=== PATIENT | female | born 1935 | race Caucasian/White ===

== ENCOUNTER 2021-12-10 09:07 | Inpatient (IN) | payer OTHER ==
[2021-12-10 09:39] LABS: Absolute Lymphocytes (CBC) 2.3 K/uL (0.7-4.9); Hematocrit 41.6 % (36.0-45.0); Lymphocytes % 30.2 % (15.3-44.8); MCV 92.1 fL (80-100); MPV 8.6 fL (7.6-11.3); RBC Red Blood Cell Count 4.52 M/uL (3.86-4.86)
[2021-12-10 09:50] LABS: SARS-CoV-2 Antigen Rapid Res Negative (Negative)
--- NOTE | 2021-12-10 09:52 | RAD REPORT ---
EXAM DESCRIPTION: Neva Single View12/10/2021 9:41 am CLINICAL HISTORY: Alteration consciousness COMPARISON: 2016 FINDINGS: Small bilateral pleural effusions suspected with mild bibasilar atelectasis. The upper lobes appear clear of acute infiltrate. The heart is normal size
--- NOTE | 2021-12-10 09:56 | EDPHYS ---
Physician Documentation [facility] Name: Paty Gil Age: 86 yrs Sex: Female : 1935 Arrival Date: 12/10/2021 Time: 09:09 Bed 6 Private MD: ED Physician John Melendrez HPI: 12/10 09:16 This 86 yrs old Female presents to ER via Unassigned with complaints of AMS. rn 09:16 The patient presents with agitation, confusion, disorientation. Onset: The rn symptoms/episode began/occurred yesterday. Possible causes: unknown. Current symptoms: In the emergency department the patient's symptoms are unchanged from the initial presentation. It is unknown whether or not the patient has had similar symptoms in the past. It is unknown whether or not the patient has recently seen a physician. Per EMS, family called 911 for AMS, not acting right per family, last seen normal or at her baseline last night around 8 PM. Pt slightly agitated for EMS, but easy to redirect, keeps repeating herself, moves all 4 extremities, no known trauma. . Historical: - Allergies: 09:26 No Known Allergies; jd3 - Home Meds: 09:26 None [Active]; jd3 - PMHx: 09:26 CHF; jd3 - PSHx: 09:26 None; jd3 - Immunization history:: Adult Immunizations up to date, Client reports having NOT received the Covid vaccine. Pneumococcal vaccine is not up to date, Flu vaccine is not up to date. - Social history:: Smoking status: Patient/guardian denies using tobacco, but has a distant history of tobacco abuse. - Unable to obtain history due to: altered mental status. ROS: 09:16 Unable to obtain ROS due to altered mental status. rn Exam: 09:16 Constitutional: Overweight female, unkempt appearance, toenails that haven't but taken rn care of for long time. Head/Face: Normocephalic, atraumatic. Eyes: Periorbital areas with no swelling, redness, or edema. ENT: dry MM Cardiovascular: Regular rate and rhythm. No pulse deficits. Respiratory: No increased work of breathing, no retractions or nasal flaring. Abdomen/GI: Soft, non-tender, with normal bowel sounds. No distension or tympany. No guarding or rebound. No evidence of tenderness throughout. Skin: Warm, dry MS/ Extremity: Pulses equal, no cyanosis. Neurovascular intact. Full, normal range of motion. Equal circumference. Neuro: Awake, alert, moves all 4 extremities, apepars confused, repeats words, does not answer appropriately, no focal neuro deficits appreciated. Withdraws all 4 extremities to pain. 09:45 ECG was reviewed by the Attending Physician. rn Vital Signs: 09:26 BP 177 / 64; Pulse 82; Resp 17 S; Temp 97.4; Pulse Ox 95% on R/A; Weight 81.65 kg (R); jd3 Height 5 ft. 6 in. (167.64 cm) (R); 11:46 BP 156 / 76 RA Supine (auto/reg); Pulse 81 LA; Resp 16 S; Pulse Ox 95% on R/A; kc6 12:38 BP 160 / 90; Pulse 82 RA; Resp 17 S; Pulse Ox 97% on R/A; kc6 13:35 BP 197 / 70; Pulse 75; Resp 21 S; Pulse Ox 94% on R/A; kc6 14:18 BP 142 / 111; Pulse 77; Resp 20 S; Pulse Ox 91% on R/A; kc6 09:26 Body Mass Index 29.05 (81.65 kg, 167.64 cm) jd3 NIH Stroke Scale Scores: 09:30 NIHSS Score: 6 kc6 11:14 NIHSS Score: 4 rn MDM: 09:11 Patient medically screened. rn 12/10 09:12 Order name: Basic Metabolic Panel; Complete Time: 15:14 rn 12/10 09:12 Order name: CBC with Diff; Complete Time: 09:53 rn 12/10 09:12 Order name: High Sensitivity Troponin; Complete Time: 15:14 rn 12/10 09:12 Order name: Protime (+inr); Complete Time: 11:36 rn 12/10 09:12 Order name: Ptt, Activated; Complete Time: 11:36 rn 12/10 09:12 Order name: Urine Drug Screen rn 12/10 09:12 Order name: Urine Microscopic Only rn 12/10 09:12 Order name: SARS RAPID; Complete Time: 09:53 rn 12/10 09:29 Order name: Urine Culture rn 12/10 09:49 Order name: Glucose, Ancillary Testing; Complete Time: 09:53 EDMS 12/10 13:31 Order name: CBC with Automated Diff EDMS 12/10 13:31 Order name: CBC with Automated Diff EDMS 12/10 13:31 Order name: Comprehensive Metabolic Panel EDMS 12/10 13:31 Order name: Comprehensive Metabolic Panel EDMS 12/10 13:31 Order name: Lipid Profile EDMS 12/10 13:31 Order name: Lipid Profile EDMS 12/10 13:31 Order name: Magnesium EDMS 12/10 13:31 Order name: Magnesium EDMS 12/10 13:31 Order name: Protime (+INR) EDMS 12/10 13:31 Order name: Protime (+INR) EDMS 12/10 13:31 Order name: Protime (+INR) EDMS 12/10 13:31 Order name: Protime (+INR) EDMS 12/10 13:31 Order name: Protime (+INR) EDMS 12/10 13:31 Order name: Protime (+INR) EDMS 12/10 13:31 Order name: PTT, Activated Partial Thromb EDMS 12/10 13:31 Order name: PTT, Activated Partial Thromb EDMS 12/10 13:31 Order name: PTT, Activated Partial Thromb EDMS 12/10 13:31 Order name: PTT, Activated Partial Thromb EDMS 12/10 13:31 Order name: PTT, Activated Partial Thromb EDMS 12/10 09:12 Order name: CT Stroke Brain w/o Contrast; Complete Time: 10:31 rn 12/10 09:12 Order name: Stroke CXR 1 View; Complete Time: 09:53 rn 12/10 09:12 Order name: EKG; Complete Time: 09:13 rn 12/10 09:12 Order name: Accucheck; Complete Time: 09:37 rn 12/10 09:12 Order name: Cardiac monitoring; Complete Time: 09:18 rn 12/10 09:12 Order name: EKG - Nurse/Tech; Complete Time: 09:33 rn 12/10 09:12 Order name: IV Saline Lock; Complete Time: :33 rn 12/10 09:12 Order name: Labs collected and sent; Complete Time: 09:33 rn 12/10 09:12 Order name: NPO; Complete Time: 09:18 rn 12/10 09:12 Order name: O2 Per Protocol; Complete Time: 09:18 rn 12/10 09:12 Order name: O2 Sat Monitoring; Complete Time: 09:19 rn 12/10 09:12 Order name: Stroke Swallow Screen; Complete Time: 13:38 rn 12/10 09:44 Order name: Labs - recollect needed: recollect the blood hemolyzed; Complete Time: 10:20eb 12/10 09:54 Order name: CT Head Angio rn 12/10 09:54 Order name: Neck Angio CT; Complete Time: 11:36 rn 12/10 09:58 Order name: Head angio; Complete Time: 11:36 EDAK 12/10 13:31 Order name: Physical Therapy Consult EDMS 12/10 13:31 Order name: Speech Therapy Consult EDAK 12/10 13:31 Order name: NPO; Complete Time: 14:02 EDAK 12/10 13:31 Order name: Echo with Doppler EDMS 12/10 13:31 Order name: EKG Electrocardiogram EDMS 12/10 13:31 Order name: PTT, Activated Partial Thromb EDMS 12/10 13:31 Order name: Stroke Protocol EDAK 12/10 13:31 Order name: Stroke Protocol EDAK 12/10 13:31 Order name: Chest Pa And Lat (2 Views) EDAK EC:45 Rate is 67 beats/min. Rhythm is regular. QRS Odd is Normal. UT interval is normal. QRS rn interval is normal. QT interval is normal. No Q waves. T waves are Normal. No ST changes noted. Clinical impression: NSR w/ Non-specific ST/T Changes. Interpreted by me. Reviewed by me. Administered Medications: 11:12 Not Given (Other Intervention Used): Aspirin 325 mg PO once jd3 11:17 Drug: foLIC Acid 1 mg Route: IVPB; Site: left antecubital; kc6 12:38 Follow up: Response: No adverse reaction; IV Status: Completed infusion; IV Intake: [id number] 12:29 Drug: Aspirin Suppository 300 mg Route: UT; kc6 13:29 Follow up: Response: No adverse reaction kc6 Point of Care Testing: Blood Glucose: 09:49 Blood Glucose: 85 mg/dL; kc6 Ranges: Critical Glucose Levels:Adult <50 mg/dl or >400 mg/dl <40 mg/dl or >180 mg/dl Disposition Summary: 12/10/21 09:55 Hospitalization Ordered Hospitalization Status: Inpatient Admission rn Provider: Briana Jean rn Location: Telemetry/MedSurg (Inpatient) rn Condition: Stable rn Problem: new rn Symptoms: are unchanged rn Bed/Room Type: Standard rn Room Assignment: 401(12/10/21 14:12) dw Diagnosis - Cerebral infarction, unspecified rn - Altered mental status, unspecified rn - Unspecified combined systolic (congestive) and diastolic (congestive) heart failure rn Forms: - Medication Reconciliation Form rn - SBAR form rn NIH Stroke Scale - NIH Stroke Score Date: 12/10/2021 Time: 09:30 Total Score = 6 1a. Level of Consciousness (LOC) - 0(Alert) 1b. Level of Consciousness (LOC) (Month \T\ Age) - 2(Neither) 1c. LOC Commands (Open \T\ Closes Eyes/Credit Control Manager) - 2(Neither) 2. Best Gaze (Lateral Gaze Paresis) - 0(Normal) 3. Visual Field Loss - 0(No visual loss) 4. Facial Palsy - 0(Normal) 5a. Left Arm: Motor (10-second hold) - 0(No drift) 5b. Right Arm: Motor (10-second hold) - 0(No drift) 6a. Left Leg: Motor (5-second hold - always test supine) - 0(No drift) 6b. Right Leg: Motor (5-second hold - always test supine) - 0(No drift) 7. Limb Ataxia (finger/nose \T\ heel/sahni - test with eyes open) - 0(Absent) 8. Sensory Loss (pinprick arms/legs/face) - 0(Normal) 9. Best Language: Aphasia (description/naming/reading) - 2(Severe aphasia) 10. Dysarthria (speech clarity - read or repeat words) - 0(Normal) 11. Extinction and Inattention (visual/tactile/auditory/spatial/personal) - 0(No abnormality) Initials: kc6 NIH Stroke Scale - NIH Stroke Score Date: 12/10/2021 Time: 11:14 Total Score = 4 1a. Level of Consciousness (LOC) - 0(Alert) 1b. Level of Consciousness (LOC) (Month \T\ Age) - 2(Neither) 1c. LOC Commands (Open \T\ Closes Eyes/Credit Control Manager) - 2(Neither) 2. Best Gaze (Lateral Gaze Paresis) - 0(Normal) 3. Visual Field Loss - 0(No visual loss) 4. Facial Palsy - 0(Normal) 5a. Left Arm: Motor (10-second hold) - 0(No drift) 5b. Right Arm: Motor (10-second hold) - 0(No drift) 6a. Left Leg: Motor (5-second hold - always test supine) - 0(No drift) 6b. Right Leg: Motor (5-second hold - always test supine) - 0(No drift) 7. Limb Ataxia (finger/nose \T\ heel/sahni - test with eyes open) - 0(Absent) 8. Sensory Loss (pinprick arms/legs/face) - 0(Normal) 9. Best Language: Aphasia (description/naming/reading) - 0(No aphasia) 10. Dysarthria (speech clarity - read or repeat words) - 0(Normal) 11. Extinction and Inattention (visual/tactile/auditory/spatial/personal) - 0(No abnormality) Initials: rn Signatures: Dispatcher [employer] Yee Pierce RN RN dw Nieto, Roman, MD MD rn Davies, Jonathon, RN RN jd3 Veronica Castro Kaitlyn RN RN kc6 Corrections: (The following items were deleted from the chart) 13:02 09:30 BLOOD CULTURE*+[id number].BRZ ordered. EDAK EDAK 14:10 09:55 rn jorge 14:12 14:10 410 jorge
--- NOTE | 2021-12-10 09:56 | ER ---
Nurse's Notes [facility] Name: Paty Gil Age: 86 yrs Sex: Female : 1935 Arrival Date: 12/10/2021 Time: 09:09 Bed 6 Private MD: Diagnosis: Cerebral infarction, unspecified;Altered mental status, unspecified;Unspecified combined systolic (congestive) and diastolic (congestive) heart failure Presentation: 12/10 09:19 Chief complaint: EMS states: "family called for a pt with acute AMS that started this jd3 morning. last known well was when she went to bed at 2000 last night. she is normally able to talk and have a normal conversation with no history of AMS. today she is unable to respond appropriately and keeps repeating her words. she is unable to answer orientation questions at this time.". Coronavirus screen: At this time, the client does not indicate any symptoms associated with coronavirus-19. Ebola Screen: No symptoms or risks identified at this time. An acute neurological deficit is present. The charge nurse has been notified. The patient has been moved to a treatment area. The patients blood glucose was checked before arriving to the hospital and was found to be normal. Initial Sepsis Screen: Does the patient meet any 2 criteria? Altered Mental Status. No. Patient's initial sepsis screen is negative. Does the patient have a suspected source of infection? No. Patient's initial sepsis screen is negative. Risk Assessment: Do you want to hurt yourself or someone else? Unable to obtain. Onset of symptoms was December 10, 2021. 09:19 Method Of Arrival: EMS: [facility] jd3 09:19 Acuity: LEEN 2 jd3 Triage Assessment: 09:26 The onset of the patients symptoms was December 09, 2021 at 20:00. General: Appears jd3 comfortable, Behavior is calm. Pain: Unable to use pain scale. Patient is disoriented. FLACC scale score is 0 out of 10. Neuro: Wise Agitation-Sedation Scale (RASS): 0 - Alert and Calm Level of Consciousness is awake, alert, confused, Oriented to none Reports pt unable to answer orientation questions. Stroke Activation: Symptom onset > 6 hours Physician: Stroke Attending; Name: ; Notified At: ; Arrived At: Physician: Chief Stroke Resident; Name: ; Notified At: ; Arrived At: Physician: Stroke Resident; Name: ; Notified At: ; Arrived At: Physician: ED Attending; Name: Parvin BRADEN; Notified At: 09:23; Arrived At: 09:23 Physician: ED Resident; Name: ; Notified At: ; Arrived At: Historical: - Allergies: 09:26 No Known Allergies; jd3 - Home Meds: :26 None [Active]; jd3 - PMHx: :26 CHF; jd3 - PSHx: 09:26 None; jd3 - Immunization history:: Adult Immunizations up to date, Client reports having NOT received the Covid vaccine. Pneumococcal vaccine is not up to date, Flu vaccine is not up to date. - Social history:: Smoking status: Patient/guardian denies using tobacco, but has a distant history of tobacco abuse. - Unable to obtain history due to: altered mental status. Screenin:38 Abuse screen: Denies threats or abuse. Denies injuries from another. Nutritional kc6 screening: On NPO diet, Difficulty chewing/swallowing? Yes. Tuberculosis screening: No symptoms or risk factors identified. Fall Risk No fall in past 12 months (0 pts). Secondary diagnosis (15 points) CVA, IV access (20 points). Ambulatory Aid- None/Bed Rest/Nurse Assist (0 pts). Gait- Normal/Bed Rest/Wheelchair (0 pts) Mental Status- Overestimates/Forgets Limitations (15 pts.). Total German Fall Scale indicates High Risk Score (45 or more points). Fall prevention measures have been instituted. Side Rails Up X 2 Placed Close to Nursing Station Frequent Obs/Assessments Occuring Family Present and informed to notify staff if the need to leave the bedside As available patient and family educated on Fall Prevention Program and Strategies. Assessment: 09:30 General: Appears in no apparent distress. uncomfortable, unkempt, Behavior is agitated, kc6 inappropriate for age, restless, uncooperative. Pain: Unable to use pain scale. Patient is disoriented. Does not appear to understand pain scale. Cardiovascular: Heart tones S1 S2 present Capillary refill < 3 seconds. Respiratory: Airway is patent Respiratory effort is even, unlabored, Respiratory pattern is regular, symmetrical. GI: No signs and/or symptoms were reported involving the gastrointestinal system. : No signs and/or symptoms were reported regarding the genitourinary system. EENT: No signs and/or symptoms were reported regarding the EENT system. Derm: No signs and/or symptoms reported regarding the dermatologic system. Musculoskeletal:. Musculoskeletal: Circulation, motion, and sensation intact. Capillary refill < 3 seconds, Range of motion: intact in all extremities, Swelling absent. 09:30 Neuro: Wise Agitation-Sedation Scale (RASS): +1 Restless Level of Consciousness is kc6 awake, alert, confused, Oriented to none Moves all extremities. Full function Speech with expressive aphasia noted, Facial symmetry appears normal, Pupils are PERRLA, Intact Babinski. 09:30 VAN Scoring: Arm Drift: Patients demonstrates NO arm weakness. Patient is VAN Negative. kc6 Patient has been NPO before screening. The patient is alert, and able to follow commands. The patient does not exhibit slurred or garbled speech. The patient is exhibiting difficulty speaking. Provider notified of the indication for Speech Therapy consult. The patient is exhibiting difficulty understanding words. The provider has been notified of the indication for a speech consult. The patient is able to swallow own secretions with no drooling or need for suction. not given not given. The patient failed the bedside swallow screening. The patient will be kept NPO until cleared by Speech Therapy or Physician. Provider notified of bedside swallow screening results: John Melendrez MD. TNKase (Tenecteplase) Screening: Contraindications: Patient reports onset of signs and symptoms of stroke greater than 6 hours ago: Yes. 09:30 Reassessment: patient with AMS, unable to follow verbal commands. patient unable to kc6 follow commands regarding NIH. unable to properly assess 1c, 7, 11. 10:30 Reassessment: Patient appears in no apparent distress at this time. No changes from kc6 previously documented assessment. Patient and/or family updated on plan of care and expected duration. Pain level reassessed. A\\T\\O x0. 11:30 Reassessment: Patient appears in no apparent distress at this time. No changes from kc6 previously documented assessment. Patient and/or family updated on plan of care and expected duration. Pain level reassessed. A\\T\\O x0. 12:29 Reassessment: Patient appears in no apparent distress at this time. No changes from kc6 previously documented assessment. Patient and/or family updated on plan of care and expected duration. Pain level reassessed. A\\T\\O x0. 13:13 Reassessment: Patient appears in no apparent distress at this time. No changes from kc6 previously documented assessment. Patient and/or family updated on plan of care and expected duration. Pain level reassessed. Dr. Jean at bedside speaking with family. clients eyes closed, respirations even and unlabored. easily aroused. A\\T\\O x0. 14:18 Reassessment: Patient appears in no apparent distress at this time. No changes from kc6 previously documented assessment. Patient and/or family updated on plan of care and expected duration. Pain level reassessed. 14:26 Reassessment: attempted to call report to 4th floor. Receiving nurse at lunch. kc6 14:42 Reassessment: attempted to call report to the 4th floor again. KACI Temple stated receiving 6 nurse is in a patients room. Vital Signs: 09:26 BP 177 / 64; Pulse 82; Resp 17 S; Temp 97.4; Pulse Ox 95% on R/A; Weight 81.65 kg (R); jd3 Height 5 ft. 6 in. (167.64 cm) (R); 11:46 BP 156 / 76 RA Supine (auto/reg); Pulse 81 LA; Resp 16 S; Pulse Ox 95% on R/A; kc6 12:38 BP 160 / 90; Pulse 82 RA; Resp 17 S; Pulse Ox 97% on R/A; kc6 13:35 BP 197 / 70; Pulse 75; Resp 21 S; Pulse Ox 94% on R/A; kc6 14:18 BP 142 / 111; Pulse 77; Resp 20 S; Pulse Ox 91% on R/A; kc6 09:26 Body Mass Index 29.05 (81.65 kg, 167.64 cm) jd3 NIH Stroke Scale Scores: 09:30 NIHSS Score: 6 kc6 11:14 NIHSS Score: 4 consumer insights intern Course: 09:09 Patient arrived in ED. eb 09:11 John Melendrez MD is Attending Physician. rn 09:18 Howard Michael RN is Primary Nurse. jd3 09:26 Triage completed. jd3 09:26 Arm band placed on. jd3 09:33 SARS RAPID Sent. kc6 09:33 Basic Metabolic Panel Sent. kc6 09:33 CBC with Diff Sent. kc6 09:33 High Sensitivity Troponin Sent. kc6 09:33 Protime (+inr) Sent. kc6 09:33 Ptt, Activated Sent. kc6 09:43 Stroke CXR 1 View In Process Unspecified. EDMS 09:49 CT Stroke Brain w/o Contrast In Process Unspecified. EDMS 09:55 Briana Jean MD is Hospitalizing Provider. rn 10:59 Head angio In Process Unspecified. EDMS 11:[address] In Process Unspecified. EDMS 11:40 Patient has correct armband on for positive identification. Bed in low position. Call kc6 light in reach. Side rails up X2. Adult w/ patient. 13:01 Warm blanket given. Cleaned of incontinence. brief changed, Pure Wick applied. kc6 14:15 No provider procedures requiring assistance completed. Maintain EMS IV. Dressing kc6 intact. Good blood return noted. Site clean \\T\\ dry. Gauge \\T\\ site: 18 G Left AC. Patient admitted, IV remains in place. Administered Medications: 11:12 Not Given (Other Intervention Used): Aspirin 325 mg PO once jd3 11:17 Drug: foLIC Acid 1 mg Route: IVPB; Site: left antecubital; kc6 12:38 Follow up: Response: No adverse reaction; IV Status: Completed infusion; IV Intake: [id number] 12:29 Drug: Aspirin Suppository 300 mg Route: TX; kc6 13:29 Follow up: Response: No adverse reaction kc6 Medication: 14:17 VIS not applicable for this client. kc6 Point of Care Testing: Blood Glucose: 09:49 Blood Glucose: 85 mg/dL; kc6 Ranges: Intake: 12:38 IV: 10ml; Total: 10ml. kc6 Outcome: 09:55 Decision to Hospitalize by Provider. rn 14:15 Admitted to Med/surg accompanied by tech, family with patient, via stretcher, room 401, kc with chart, Report called to KACI Sanchez 14:15 Condition: stable 14:15 Discharge instructions given to family, Instructed on the need for admit. 15:19 Patient left the ED. kc6 NIH Stroke Scale - NIH Stroke Score Date: 12/10/2021 Time: 09:30 Total Score = 6 1a. Level of Consciousness (LOC) - 0(Alert) 1b. Level of Consciousness (LOC) (Month \\T\\ Age) - 2(Neither) 1c. LOC Commands (Open \\T\\ Closes Eyes/Maintenance And Custodian Supervisor) - 2(Neither) 2. Best Gaze (Lateral Gaze Paresis) - 0(Normal) 3. Visual Field Loss - 0(No visual loss) 4. Facial Palsy - 0(Normal) 5a. Left Arm: Motor (10-second hold) - 0(No drift) 5b. Right Arm: Motor (10-second hold) - 0(No drift) 6a. Left Leg: Motor (5-second hold - always test supine) - 0(No drift) 6b. Right Leg: Motor (5-second hold - always test supine) - 0(No drift) 7. Limb Ataxia (finger/nose \\T\\ heel/sahni - test with eyes open) - 0(Absent) 8. Sensory Loss (pinprick arms/legs/face) - 0(Normal) 9. Best Language: Aphasia (description/naming/reading) - 2(Severe aphasia) 10. Dysarthria (speech clarity - read or repeat words) - 0(Normal) 11. Extinction and Inattention (visual/tactile/auditory/spatial/personal) - 0(No abnormality) Initials: kc6 NIH Stroke Scale - NIH Stroke Score Date: 12/10/2021 Time: 11:14 Total Score = 4 1a. Level of Consciousness (LOC) - 0(Alert) 1b. Level of Consciousness (LOC) (Month \\T\\ Age) - 2(Neither) 1c. LOC Commands (Open \\T\\ Closes Eyes/Maintenance And Custodian Supervisor) - 2(Neither) 2. Best Gaze (Lateral Gaze Paresis) - 0(Normal) 3. Visual Field Loss - 0(No visual loss) 4. Facial Palsy - 0(Normal) 5a. Left Arm: Motor (10-second hold) - 0(No drift) 5b. Right Arm: Motor (10-second hold) - 0(No drift) 6a. Left Leg: Motor (5-second hold - always test supine) - 0(No drift) 6b. Right Leg: Motor (5-second hold - always test supine) - 0(No drift) 7. Limb Ataxia (finger/nose \\T\\ heel/sahni - test with eyes open) - 0(Absent) 8. Sensory Loss (pinprick arms/legs/face) - 0(Normal) 9. Best Language: Aphasia (description/naming/reading) - 0(No aphasia) 10. Dysarthria (speech clarity - read or repeat words) - 0(Normal) 11. Extinction and Inattention (visual/tactile/auditory/spatial/personal) - 0(No abnormality) Initials: rn Signatures: Dispatcher [employer] EDJohn Ortega MD MD rn Davies, Jonathon, RN RN jd3 Botello, Elizabeth eb Campbell, Kaitlyn, RN RN kc6 Corrections: (The following items were deleted from the chart) 11:36 11:31 Reassessment: patient with AMS, unable to follow verbal commands. patient kc6 unable to follow commands regarding NIH. unable to properly assess 1c, 7, 11. kc6 12:39 12:17 Response: No adverse reaction; IV Intake: 10ml kc6 kc6 15:18 14:15 Admitted to Med/surg accompanied by tech, family with patient, via kc6 stretcher, room 401, with chart, kc6
--- NOTE | 2021-12-10 09:57 | RAD REPORT ---
EXAM DESCRIPTION: CT - Ct Stroke Brain Wo Cont - 12/10/2021 9:48 am CLINICAL HISTORY: Confusion/alteration of awareness COMPARISON: none TECHNIQUE: Computed axial tomography of the head was obtained. All CT scans are performed using dose optimization technique as appropriate and may include automated exposure control or mA/KV adjustment according to patient size. FINDINGS: An intracranial bleed is not seen . The ventricles are normal in caliber. No extra-axial fluid collection is noted. 3.5 centimeter low-density area within the right frontal lobe has the appearance an infarct. 1 millim eter shift of the midline structures to the left Moderate low-density within periventricular, subcortical white matter likely ischemic changes seconda ry to small vessel disease. Fluid within the sinuses/ mastoids is not seen. IMPRESSION: Acute right frontal lobe infarction Nik of the emergency room was notified at 9:51 a.m. December 10, 2021
[2021-12-10] MEDS ORDERED: FOLIC ACID 5 MG/ML VIAL ONE (11:09)
--- NOTE | 2021-12-10 11:27 | RAD REPORT ---
EXAM DESCRIPTION: CTHead angio12/10/2021 10:58 am CLINICAL HISTORY: Acute CVA COMPARISON: None TECHNIQUE: CT angiogram of the head was obtained. 3D MIPS reconstruction performed. All CT scans are performed using dose optimization technique as appropriate and may include automated exposure control or mA/KV adjustment according to patient size. FINDINGS: Mild plaque basilar artery. Mild to moderate calcified plaque distal right and left internal carotid arteries. A1 segment right anterior cerebral artery is hypoplastic. Remainder of the anterior cerebral, middle cerebral and posterior cerebral arteries unremarkable No aneurysm No high-grade stenosis IMPRESSION: No acute abnormality is displayed
--- NOTE | 2021-12-10 11:27 | RAD REPORT ---
EXAM DESCRIPTION: [place] Angio12/10/2021 10:59 am CLINICAL HISTORY: Acute CVA COMPARISON: None TECHNIQUE: 50 cc Isovue 370 was administered intravenously. 3D MIP reconstruction performed All CT scans are performed using dose optimization technique as appropriate and may include automated exposure control or mA/KV adjustment according to patient size. FINDINGS: Mild calcified plaque right common carotid and right internal carotid artery Moderate calcified plaque left carotid bulb. Mild calcified plaque left common carotid artery Minimal calcified plaque distal right vertebral artery. Moderate calcified plaque distal left vertebral artery IMPRESSION: Moderate calcified plaque left carotid bulb results in approximately 60% stenosis Moderate calcified plaque distal left vertebral artery results in approximately 50% stenosis NASCET criteria used. Mild 0-49% stenosis Moderate 50-69% stenosis Severe 70-99% stenosis
[2021-12-10 11:35] LABS: Protime INR 1.05
[2021-12-10 11:47] LABS: Potassium 3.9 mmol/L (3.5-5.1); Troponin High Sensitivity 16.4 pg/mL (<58.9)
[2021-12-10] MEDS ORDERED: ASPIRIN 300 MG/SUPP PR ONE (12:00)
[2021-12-10] MEDS ORDERED: ONDANSETRON 4 MG/2 ML VIAL IV PRN (13:26)
[2021-12-10] MEDS ORDERED: ACETAMINOPHEN 500 MG TAB PO PRN (13:26)
[2021-12-10 13:48] VITALS: BMI 29.0
[2021-12-10] MEDS: NA CHLORIDE 0.9% 1,000 ML IV SCH (16:08)
[2021-12-10] MEDS ORDERED: VALPROATE SODIUM INJ 250 MG in NA CHLORIDE 0.9% 100 ML IV ONE (16:41)
--- NOTE | 2021-12-10 16:52 | EKG ---
Test Date: 2021-12-10 Test Time: 09:31:37 Card Player: JO MEASUREMENT RESULTS: Intervals: Rate: 67 NE: 180 QRSD: 90 QT: 428 QTc: 452 [place]: P: 77 NE: 180 QRS: 58 T: 124 INTERPRETIVE STATEMENTS: Normal sinus rhythm Nonspecific ST and T wave abnormality Abnormal ECG Compared to ECG 12/09/2015 07:22:41 ST (T wave) deviation now present Ventricular premature complex(es) no longer present T-wave abnormality no longer present Possible ischemia no longer present Prolonged QT interval no longer present Electronically Signed On 12-10-21 16:51:42 CDT by Manuelito Anderson
[2021-12-10] MEDS ORDERED: NA CHLORIDE 0.9% 100 ML ONE (17:13)
[2021-12-10] MEDS: METOPROLOL TARTRATE 5 MG/5 ML INJ IV SCH (17:42)
[2021-12-10 18:36] LABS: Barbiturates NEGATIVE (NEGATIVE); Benzodiazepines NEGATIVE (NEGATIVE); Cocaine NEGATIVE (NEGATIVE); METHAMPHETAM NEGATIVE (NEGATIVE); Methadone NEGATIVE (NEGATIVE); Opiates NEGATIVE (NEGATIVE); Phencyclidine NEGATIVE (NEGATIVE); THC Cannibis NEGATIVE (NEGATIVE)
[2021-12-10 18:51] LABS: Urine RBC <5 /HPF (None Seen)
[2021-12-10] MEDS: ATORVASTATIN 80 MG TAB PO SCH (20:09)
[2021-12-10] MEDS ORDERED: HALOPERIDOL LACT 5 MG/ML INJ IV PRN ×2 (21:09→21:21)
--- NOTE | 2021-12-10 21:21 | P.HP ---
Certification for Inpatient Patient admitted to: Inpatient With expected LOS: >2 Midnights Patient will require the following post-hospital care: None Practitioner: I am a practitioner with admitting privileges, knowledge of patient current condition, hospital course, and medical plan of care. Services: Services provided to patient in accordance with Admission requirements found in Title 42 Section 412.3 of the Code of Federal Regulations Patient History Date of Service: 12/10/21 Reason for admission: Right frontal lobe CVA-acute History of Present Illness: patient is a an 86-year-old female who woke up this morning and she was confused. Patient was repeating the same word over and over again. She was not making any sense whatsoever. The family is not really sure when her mentation became altered. They know she went to sleep and she was fine. When she woke up her mentation was as mentioned above. Patient lives with her family and she has assistance with her activities of daily living although she does most of the things on her own. At this time she will be admitted for acute CVA. Imaging studies in the emergency room revealed right frontal lobe infarct that was an acute infarct. Allergies No Known Allergies Allergy (Verified 01/28/16 16:31) Home Medications: NK [No Home Meds] 12/10/21 - Past Medical/Surgical History Has patient received pneumonia vaccine in the past: No Diabetic: No -: CHF -: pt has one living child - Family History Sister Medical History: Heart disease - Social History Smoking Status: Former smoker Alcohol use: No CD- Drugs: No Place of Residence: Home Review of Systems 10-point ROS is otherwise unremarkable Physical Examination - Vital Signs Temperature: 97.6 F Blood Pressure: 188/67 Pulse: 76 Respirations: 16 Pulse Ox (%): 93 - Physical Exam General: Alert, In no apparent distress, Confused HEENT: Atraumatic, PERRLA, Mucous membr. moist/pink, EOMI, Sclerae nonicteric Neck: Supple, 2+ carotid pulse no bruit, No LAD, Without JVD or thyroid abnormality Respiratory: Clear to auscultation bilaterally, Normal air movement Cardiovascular: Regular rate/rhythm, Normal S1 S2 Gastrointestinal: Normal bowel sounds, No tenderness Musculoskeletal: No tenderness Integumentary: No rashes Neurological: Normal tone, Cranial nerves 3-12 intact, Normal affect, Abnormal gait, Abnormal speech, Abnormal strength Lymphatics: No axilla or inguinal lymphadenopathy - Studies Laboratory Data (last 24 hrs) 12/10/21 11:22: PT 11.5, INR 1.05, APTT 29.7 12/10/21 11:22: Sodium 135 L, Potassium 3.9, BUN 15, Creatinine 1.27, Glucose 100 12/10/21 09:29: WBC 7.70, Hgb 13.8, Hct 41.6, Plt Count 264 Assessment & Plan - Problems (Diagnosis) (1) Acute CVA (cerebrovascular accident) Current Visit: Yes Status: Acute (2) CHF (congestive heart failure) Current Visit: Yes Status: Acute (3) CKD (chronic kidney disease) stage 3, GFR 30-59 ml/min Onset Date: 12/09/15 Current Visit: No Status: Acute (4) Chronic obstructive pulmonary disease Onset Date: 01/31/16 Current Visit: No Status: Chronic Qualifiers: - Plan 1. MRI of the brain 2. Echocardiogram and carotid Doppler 3. Anti-platelet therapy and statin therapy 4. Neurology consultation 5. Physical therapy/occupational therapy/speech therapy evaluation 6. Modified barium swallow study 7. DVT prophylaxis Discharge Plan: Other (rehab) Plan to discharge in: Greater than 2 days - Advance Directives Does patient have a Living Will: No Does patient have a Durable POA for Healthcare: No - Code Status/Comfort Care Code Status Assessed: Yes Code Status: Full Code Critical Care: No Time Spent Managing PTS Care (In Minutes): 45
[2021-12-11] MEDS ORDERED: HYDRALAZINE HCL 20 MG/ML VIAL IV ONE
[2021-12-11] MEDS: METOPROLOL TARTRATE 5 MG/5 ML INJ IV SCH ×4 (00:25→17:00)
[2021-12-11 06:10] LABS: Absolute Lymphocytes (CBC) 1.5 K/uL (0.7-4.9); Hematocrit 43.3 % (36.0-45.0); Lymphocytes % 17.1 % (15.3-44.8); MCV 90.9 fL (80-100); MPV 8.6 fL (7.6-11.3); RBC Red Blood Cell Count 4.76 M/uL (3.86-4.86)
[2021-12-11 06:17] LABS: Protime INR 1.06
[2021-12-11 06:33] LABS: Albumin 3.3 g/dL (3.4-5.0); Bilirubin Total 0.7 mg/dL (0.2-1.0); Magnesium 2.4 mg/dL (1.8-2.4); Potassium 4.1 mmol/L (3.5-5.1); Protein, Total 7.9 g/dL (6.4-8.2)
[2021-12-11] MEDS: ENOXAPARIN 40 MG/0.4 ML SQ SCH (08:33)
[2021-12-11] MEDS: ASPIRIN EC 81 MG TAB PO SCH (09:00)
[2021-12-11] MEDS ORDERED: PNEUMOCOCCAL VACCINE 0.5 ML IMVAC ONE (09:00)
[2021-12-11] MEDS ORDERED: INFLUENZA VACCINE (for 6+ mo) 0.5 ML DOSE IMVAC ONE (09:00)
[2021-12-11] MEDS: CLOPIDOGREL 75 MG TABLET PO SCH (09:00)
[2021-12-11] MEDS: NA CHLORIDE 0.9% 1,000 ML IV SCH (14:09)
[2021-12-11] MEDS: ATORVASTATIN 80 MG TAB PO SCH (21:00)
[2021-12-12] MEDS: METOPROLOL TARTRATE 5 MG/5 ML INJ IV SCH ×5 (00:19→23:00)
[2021-12-12 04:25] LABS: Protime INR 1.1
[2021-12-12] MEDS: ASPIRIN EC 81 MG TAB PO SCH ×2 (09:00→10:05)
[2021-12-12] MEDS: FOLIC ACID 1 MG TABLET PO SCH ×2 (09:00→10:05)
[2021-12-12] MEDS: CLOPIDOGREL 75 MG TABLET PO SCH ×2 (09:00→10:05)
--- NOTE | 2021-12-12 09:10 | P.PN ---
Date of Service: 12/11/21 Subjective Patient clinically doing well. Symptoms are improving. Patient was able to eat pudding without any difficulty. Will place patient on pureed diet. Feed with assistance. Patient is interacting in answering questions more appropriately. She is still jumbled her words up. But she is making much more sense than she was yesterday. Physical Examination - Vital Signs Reviewed - Physical Exam General: Alert, In no apparent distress, Aphasic Respiratory: Clear to auscultation bilaterally, Normal air movement Cardiovascular: Regular rate/rhythm, Normal S1 S2 Gastrointestinal: Normal bowel sounds, No tenderness Neurological: patient is aphasic. Move all extremities. she is following some of my commands. Neurologically she is better than yesterday. Assessment & Plan - Problems (Diagnosis) (1) Acute CVA (cerebrovascular accident) Current Visit: Yes Status: Acute (2) CHF (congestive heart failure) Current Visit: Yes Status: Acute (3) CKD (chronic kidney disease) stage 3, GFR 30-59 ml/min Onset Date: 12/09/15 Current Visit: No Status: Acute (4) Chronic obstructive pulmonary disease Onset Date: 01/31/16 Current Visit: No Status: Chronic Qualifiers: - Plan Continue with plan of care as mentioned below: 1. MRI of the brain 2. Echocardiogram and carotid Doppler 3. Anti-platelet therapy and statin therapy 4. Neurology consultation 5. Physical therapy evaluation 6. Patient tolerating pudding. Uncertain if will get speech therapy. Do not need to do swallow study at this time. 7. DVT prophylaxis
--- NOTE | 2021-12-12 09:39 | RAD REPORT ---
EXAM DESCRIPTION: Headache drowsiness - Brain W/Wo Cont - 12/12/2021 9:25 am CLINICAL HISTORY: CVA Headache, drowsiness, CVA symptomology COMPARISON: MRA Head Wo Cont dated 12/12/2021; Ct Stroke Brain Wo Cont dated 12/10/2021 TECHNIQUE: Multi-sequence, multiplanar MR imaging of the brain was performed with contrast. FINDINGS: There is a large area of restricted diffusion measuring 6 centimeters with mild post-contr ast enhancement noted left parietal region compatible with acute CVA. There is a large area of restricted diffusion measuring 4 cm right frontal lobe with postcontrast enh ancement also likely acute CVA. Smaller subcentimeter infarcts are also present left frontal region as well as left occipital lobe. There is no hemorrhage evident. No midline shift seen. No additional areas of pathologic enhancement. IMPRESSION: Large bilateral acute CVA noted, larger on the left. Additional smaller acute infarcts p resent left frontal and left occipital region. No midline shift is seen. No hemorrhagic component evident. Given the bilateral nature of these infarcts, consider embolic source.
--- NOTE | 2021-12-12 09:44 | RAD REPORT ---
EXAM DESCRIPTION: MRI - MRA Head Wo Cont - 12/12/2021 9:25 am CLINICAL HISTORY: CVA CVA COMPARISON: Head angio dated 12/10/2021 FINDINGS: 3D noncontrast [id number] MR angiography of the [place] of [place] was performed. There is diminished flow seen in the right M1 and M2 branches without occlusion. Right carotid siphon shows diminished flow as well likely related to atherosclerosis. Mild decrease right anterior cerebr al artery flow seen. No aneurysm, large vessel occlusion or vascular anomaly. Antegrade flow is seen in the vertebral arteries, right-sided dominant. IMPRESSION: Atherosclerotic vascular disease suspected involving right intracranial carotid artery a s well as right M1 and M2 branches with diminished flow. No large vessel occlusion evident.
[2021-12-12] MEDS: NA CHLORIDE 0.9% 1,000 ML IV SCH (09:56)
[2021-12-12] MEDS: ENOXAPARIN 40 MG/0.4 ML SQ SCH (09:56)
--- NOTE | 2021-12-12 10:04 | RAD REPORT ---
EXAM DESCRIPTION: MRI - MRA Neck W/Wo Cont - 12/12/2021 9:25 am CLINICAL HISTORY: CVA Headache, drowsiness COMPARISON: No comparisons FINDINGS: Contrast enhance 2D [id number] MR angiography of the neck vessels was performed. Left aortic arch is identified. There is a moderate stenosis present at the origin of the left subclavian artery. Focal stenosis also seen origin of the right common carotid artery. Both common carotid arteries are patent. There is a moderate smooth narrowing of the proximal right internal carotid artery and a mild focal n arrowing of the proximal left internal carotid artery. Maximal stenosis on the right is estimated at 60-70% based on NASCET criteria. Both vertebrobasilar systems are irregular with focal stenosis of the distal left vertebral artery is seen proximal to the basilar artery confluence. IMPRESSION: Multiple areas of atherosclerotic stenosis are seen as detailed above.
--- NOTE | 2021-12-12 14:23 | P.PN ---
Subjective Date of Service: 12/12/21 Chief Complaint: Right frontal lobe CVA-acute No acute events overnight. She appears to be understanding what I am telling her, but she is unable to effectively communicate. When asked her name, she repeats "jossue." Review of Systems is unable to be obtained Physical Examination - Vital Signs Temperature: 97.2 F Blood Pressure: 146/59 Pulse: 65 Respirations: 16 Pulse Ox (%): 94 - Physical Exam General: Alert, In no apparent distress, Other (not following commands reliably) HEENT: Atraumatic, PERRLA, Mucous membr. moist/pink, EOMI, Sclerae nonicteric Neck: Supple, JVD not distended Respiratory: Clear to auscultation bilaterally Cardiovascular: No edema, Regular rate/rhythm, Normal S1 S2, No gallops, No rubs, No murmurs Capillary refill: <2 Seconds Gastrointestinal: Normal bowel sounds, Soft and benign, Non-distended, No tenderness, No rebound, No guarding Musculoskeletal: No clubbing Integumentary: No rashes Neurological: Other (difficult to assess, unable to effectively communicate as mentioned in HPI. Appears alert and intermittently responsive. Moving all four extremities equally. Unable to accurately perform NIHSS due to aphasia and intermittently following commands.) Assessment And Plan - Plan # Acute Large Bilateral Cerebrovascular Accident concern for Cardioembolic Stroke # Carotid Artery Stenosis - Consulted Neurology and spoke with Dr. Bryson - recommendations appreciated - Recommended discontinuing aspirin, clopidogrel and starting heparin drip - Consulted Cardiology and spoke with Dr. Anderson - recommendations appreciated - Recommended starting heparin drip - Recommended obtaining bilateral lower extremity Doppler - Unable to perform NIHSS due to unreliably following commands - q4hr neurochecks - CT head = "acute right frontal lobe infarction." - CT head angiogram = "no acute abnormality is displayed" - CT neck angiogram = "moderate calcified plaque left carotid bulb results in approximately 60% stenosis. Moderate calcified plaque distal left vertebral artery results in approximately 50% stenosis." - MRI head = "large bilateral acute CVA noted, larger on the left. Additional smaller acute infarcts present left frontal and left occipital region. No midline shift is seen. No hemorrhagic component evident. Given the bilateral nature of these infarcts, consider embolic source." - MR head angiogram = "atherosclerotic vascular disease suspected involving right intracranial carotid artery as well as right M1 and M2 branches with diminished flow. No large vessel occlusion evident." - MR neck angiogram = "multiple areas of atherosclerotic stenosis are seen as detailed above." - Transthoracic echocardiogram pending - PT/OT/SURG TECH evaluation requested - Ordered cardiac risk profile: - Hgb A1c = pending - Lipid panel = TC 230, LDL 161, HDL 45, TG 119 - TSH = pending - Continue atorvastatin, folic acid # Chronic Compensated Congestive Heart Failure # Chronic Obstructive Pulmonary Disease # Chronic Kidney Disease Stage III # Dyslipidemia - Stable, resume home medications once able René Bardales M.D.
[2021-12-12] MEDS ORDERED: HEPARIN/D5W 25,000 UNIT/500 ML BAG IV PRN (15:00)
[2021-12-12] MEDS: ATORVASTATIN 80 MG TAB PO SCH (21:47)
--- NOTE | 2021-12-12 22:53 | CON ---
Date of Consultation: 12/13/2021 Reason For Consultation: Acute stroke, history of possible cardioembolic event. History Of Present Illness: An 86-year-old female, with history of congestive heart failure, present ed because of altered mental status and slurred speech and expressive aphasia. On evaluation, she is found to have multifocal infarct suggestive of thromboembolic event. I saw her at bedside. She is asymptomatic, but she has expressive aphasia. Past Medical History: As outlined above in HPI. Medications: Refer reconciliation sheet for detailed list. Allergies: NO KNOWN DRUG ALLERGIES. Family History: No premature coronary artery disease or cancer. Social History: Does not smoke or drink. Does not use any drugs. Review of Systems: All systems reviewed and they were negative. Physical Examination: Vital Signs: Reviewed. Head and Neck: Pupils are equal, reactive to light. Intact eye movements. No JVD. No cervical lym phadenopathy. Neck is supple. Thyroid is not enlarged. Lungs: Clear to auscultation bilaterally. No rhonchi, rales, or crackles. No accessory muscle use. Heart: Regular rate and rhythm. No extra sounds. Abdomen: Soft, nontender. Bowel sounds positive. No organomegaly. No masses or hernia. No rigidi ty or rebound. Extremities: No clubbing, cyanosis. Intact pulses. Skin: No rash. Neurologic: Alert, awake, oriented x3 with expressive aphasia. Lymph Nodes: No cervical or axillary adenopathy. Investigations: MRI the brain showed large bilateral acute CVA, larger on the left. Additional smal ler acute infarcts present in the left frontal and left occipital region, likely thromboembolic event . The patient had MRA of the neck showed multiple areas of stenosis on the right side ranging betwee n 60% and 70%. Assessment And Recommendation: 1.Acute cerebrovascular accident, likely due to thromboembolic event. Obtain echocardiogram and lianne p monitoring on telemetry. This patient likely has paroxysmal atrial fibrillation that resulted in m ultifocal stroke. I recommend full anticoagulation with Xarelto or Eliquis after consulting with Ruthann lyle. 2.Carotid stenosis. She will need carotid angiogram, which will be planned to be done as an outpati ent when she is more stable, start her on baby aspirin 81 mg and high-dose statin, Lipitor 40 mg at b edtime. Thank you for the consult. /FOUZIAL Voice ID: [id number] Report ID: [id number]
--- NOTE | 2021-12-12 23:02 | CON ---
Reason For Consultation: Consultation called because of multiple strokes. History Of Present Illness: Mrs. Gil is an 86-year-old right-handed patient with a hist ory of congestive heart failure who comes to [facility] with new onset difficulty expressing herself. Her and daughter were in the room. He said on the , that is yesterday, she we nt to bed okay, but woke up and when he spoke with her, she was mumbling nonsensical words over and o gilma again. At times she appeared to point at the side of the bed, at the hem, but he could not under stand what she wanted to say. She was not following any commands. The patient's daughter was michelle kitchen and they brought her to [facility] for evaluation. Since patient went to bed okay and w adeel up in the morning with significant deficit of speech or aphasia, she was never considered a harry date for TNKs. Her head CT scan also identified a 3.5 cm low-density area in the right frontal lobe with a 1 mm shift to the left consistent with an acute right frontal stroke and also moderate low-den sity areas in the periventricular and subcortical white matter were likely felt to be secondary to sm all-vessel ischemic disease. She did receive hydration and aspirin along with Lipitor, folic acid, P lavix, and Lovenox. Her CT angiogram, in the emergency room, of the head and neck showed no signific ant abnormalities within her head and moderate calcified plaque in the left carotid bulb estimated at 60% and the distal vertebral artery on the left had approximately 50% stenosis. The patient's husba nd said after hospitalization, she did improve somewhat in the ability to communicate, but still it f luctuated where at times she made no sense and at times she would answer to her name and may get 1 or 2 words out such as when her ammonium sulfate operator came, she was able to speak with him briefly, but it was not a s ustained conversation. Throughout all this patient had no changes such as face, arm, or leg asymmetri es. No evidence of the outward appearance of a stroke. Past Medical History: As noted. Allergies: NO KNOWN DRUG ALLERGIES. Family History: Heart disease in sister. Social History: Smoked in the past. No current cigarette smoking. Medications: Currently Tylenol Extra Strength 500 mg every 4 hours, Lipitor 80 mg at bedtime, folic acid 1 mg daily. She is now put on a heparin drip without a bolus and she is on metoprolol 5 mg IV e very 6 hours as needed along with Zofran. Imaging: Earlier today the patient did have a subsequent brain imaging, which is a brain MRI and thi s was 2 days from her initial admission and the MRI identified multiple strokes in the left and right hemispheres, larger on the left with additional smaller infarcts present in the left frontal and occ ipital regions. The larger area was 6 cm in the left parietal region. There was a 4 cm stroke in th e right frontal lobe and also smaller subcentimeter infarcts in the left frontal and left occipital l obes. She was seen by Cardiology and has a cardiac workup with echocardiogram pending. The MRA of h er neck identified atherosclerotic disease in the right intracranial carotid artery as well as the M1 and M2 branches. Review of Systems: There are no recent fevers, chills, nausea, vomiting, myalgias, arthralgias, rash, headache, weight c hange, or psychiatric issues. Physical Examination: Vital Signs: Blood pressure 112/77, pulse 67, respiratory rate 16, temperature 98.0, oxygen saturati on 93%. Weight 180 pounds, height 5 feet 6 inches. General: Mrs. Gil is resting comfortably in bed. She is in no acute distress. HEENT: She appears normocephalic, atraumatic. Her sclerae are anicteric. Oropharynx is moist. Neck: Supple. Chest: Clear. Heart: Regular. Extremities: No edema, cyanosis, or clubbing. Neurological: She is alert and oriented to person, but not to place, situation, or time. She does n ot follow simple commands such as to show a thumbs-up sign or to take the right hand and touch the le ft ear or left hand and right ear. She did follow commands to lift the hands when it was mimicked in front of her. She did follow commands and mimicked to lift her left and right leg, but the hand had to assist the leg up and then she was able to do it on her own. Otherwise in terms of cranial nerve s, no apparent deficits in terms of facial symmetry. Unable to fully assess sensation and visual fie lds. On motor exam, she does not have any obvious asymmetries and strength in the upper and lower ex tremities. Sensory exam unable to be fully assessed. Reflexes are symmetric. Coordination appears intact in the upper and lower extremities. In terms of gait, she did ambulate over 100 feet with mod erate assistance for safety awareness. She did have a narrow based gait. Laboratory Studies: Complete blood count with differential is normal. Coagulation panel is unremark able. INR 1.1. Chemistries: Sodium 134, glucose ranged 100-108. Liver function studies are normal . Total cholesterol 230, LDL cholesterol 161. Urine drug screen is negative. COVID-19 testing is n egative. Her electrocardiogram shows normal sinus rhythm, nonspecific ST and T-wave abnormalities. Assessment: Mrs. Gil is an 86-year-old patient with multiple likely cardioembolic strokes in the bilateral hemispheres including the left frontal region. She clinically has a significant expressive and receptive aphasia. She does not have any focal face, arm, or leg weakness or incoordination dif ficulties. Plan: 1.She requires aggressive speech therapy to help her recover. Also physical and occupational therap y would be helpful. 2.Her dyslipidemia should be addressed by high-dose statin. 3.Aspirin 81 mg daily, actually has been held and she is not on heparin given the possibility of car dioembolic stroke. The management should be left to the health education director, if she does have atrial fibril lation. If she is able to withstand full anticoagulation, I would recommend Eliquis 5 mg twice daily. 4.She would be a good candidate for acute inpatient rehabilitation if this service is available. SILAS Voice ID: [id number] Report ID: [id number]
[2021-12-13] MEDS: NA CHLORIDE 0.9% 1,000 ML IV SCH ×2 (02:00→06:57)
[2021-12-13 04:43] VITALS: O2SAT 95
[2021-12-13] MEDS: METOPROLOL TARTRATE 5 MG/5 ML INJ IV SCH (04:45)
[2021-12-13 05:45] LABS: Protime INR 0.93
[2021-12-13 06:01] LABS: Thyroid Stimulating Hormone 3.82 uIU/mL (0.360-3.740)
[2021-12-13] MEDS ORDERED: METOPROLOL TAR 25 MG TAB PO SCH (06:38)
[2021-12-13] MEDS: FOLIC ACID 1 MG TABLET PO SCH (07:52)
--- NOTE | 2021-12-13 08:25 | ECHO ---
HEIGHT: 5 ft 6 in WEIGHT: 180 lb 0.119 oz DATE OF STUDY: 12/12/[address]: Briana Jean MD 2-DIMENSIONAL: YES M.MODE: YES DOPPLER: YES COLOR FLOW: YES TDS: PORTABLE: YES DEFINITY: BUBBLE STUDY: DIAGNOSIS: STROKE CARDIAC HISTORY: CATHERIZATION: SURGERY: PROSTHETIC VALVE: PACEMAKER: MEASUREMENTS (cm) DIASTOLIC (NORMALS) SYSTOLIC (NORMALS) IVSd 1.1 (0.6-1.2) LA Diam 3.4 (1.9-4.0) LVEF 66% LVIDd 4.2 (3.5-5.7) LVIDs 2.7 (2.0-3.5) %FS 36% LVPWd 1.4 (0.6-1.2) Ao Diam 2.8 (2.0-3.7) 2 DIMENSIONAL ASSESSMENT: RIGHT ATRIUM: NORMAL LEFT ATRIUM: NORMAL RIGHT VENTRICLE: NORMAL LEFT VENTRICLE: NORMAL TRICUSPID VALVE: MILD TRICUSPID REGURGITATION MITRAL VALVE: MILD MITRAL REGURGITATION PULMONIC VALVE: NORMAL AORTIC VALVE: MILD AORTIC INSUFFICIENCY PERICARDIAL EFFUSION: NONE AORTIC ROOT: NORMAL LEFT VENTRICULAR WALL MOTION: NORMAL DOPPLER/COLOR FLOW: SEE BELOW COMMENTS: NORMAL LEFT VENTRICULAR EJECTION FRACTION 60-65% WITH NORMAL WALL MOTION. MILD MITRAL REGURGITATION, TRICUSPID REGURGITATION, AND AORTIC INSUFFICIENCY BY DOPPLER. MODERATE DIASTOLIC DYSFUNCTION. TECHNOLOGIST: DEMIAN JOHN
--- NOTE | 2021-12-13 11:21 | RAD REPORT ---
EXAM DESCRIPTION: US - Extrem Venous W Compress Ollie - 12/13/2021 12:47 am CLINICAL HISTORY: rule out DVT COMPARISON: None. TECHNIQUE: Real-time sonographic evaluation of the bilateral lower extremity common femoral, superfi cial femoral, popliteal and posterior tibial veins was performed. FINDINGS: Normal compressibility, flow augmentation, phasic flow and spontaneous flow are identified in the left and right lower extremity common femoral, superficial femoral, popliteal and posterior t ibial veins. No intraluminal filling defects seen. IMPRESSION: No DVT in either lower extremity.
--- NOTE | 2021-12-13 12:54 | RAD REPORT ---
EXAM DESCRIPTION: CT - Ct Stroke Brain Wo Cont - 12/13/2021 12:43 pm CLINICAL HISTORY: Stroke COMPARISON: Head angio dated 12/10/2021; Ct Stroke Brain Wo Cont dated 12/10/2021; MRA Head Wo Cont dated 12/12/2021; Brain W/Wo Cont dated 12/12/2021 TECHNIQUE: All CT scans are performed using dose optimization technique as appropriate and may inclu de automated exposure control or mA/KV adjustment according to patient size. FINDINGS: No intracranial hemorrhage, hydrocephalus or extra-axial fluid collection.Left MCA and rig ht frontal lobe infarcts as noted on yesterday's MRI are again identified. The infarct volume is jacinto lar to 12/12/2021. Left maxillary sinus mucous retention cyst. Left mastoid effusion. The calvarium is intact. IMPRESSION: Evolving right frontal lobe and left MCA territory infarcts without evidence of hemorrha gic transformation or infarct extension compared with the MRI from 12/12/2021.
--- NOTE | 2021-12-13 13:44 | P.PN ---
Date of Service: 12/13/21 Code Stroke called at 12:16 PM for facial droop. I arrived at bedside shortly after. There was a minor facial droop noted in the right lower quadrant of her face. Overall, her aphasia seems to have worsened compared to yesterday. Yesterday, her deficits primarily included an expressive aphasia; whereas, today, she appears to have more of a global aphasia. STAT CT head was obtained and revealed, "evolving right frontal lobe and left MCA territory infarcts without evidence of hemorrhagic transformation or infarct extension compared with the MRI from 12/12/2021." Her case was reviewed with Dr. Bryson (Neurology), who recommended against tenecteplase as she has been on a heparin drip for suspected cardioembolic stroke. This morning, prior to her code stroke, she was found to be in atrial fibrillation, which likely represents her cardioembolic source. NIH Stroke Scale (extremely limited given global aphasia) 1a. Level of consciousness: 0 - Alert; keenly responsive 1b. LOC questions: 2 - 0 questions right 1c. LOC commands: 2 - performs 0 tasks 2. Best Gaze: 0 - Normal 3. Visual: 0 - unable to assess 4. Facial Palsy: 1 - minor paralysis (flat nasolabial fold, smile asymmetry) 5a. Motor left arm: 0 - unable to assess 5b. Motor right arm: 0 - unable to assess 6a. Motor left le - unable to assess 6b. Motor right le - unable to assess 7. Limb ataxia: 0 - unable to assess 8. Sensory: 0 - unable to assess 9. Best Language: 3 - mute/global aphasia: no usable speech/auditory comprehension 10. Dysarthria: 2 - severe dysarthria: unintelligible slurring or out of proportion to dysphagia 11. Extinction and Inattention: 0 - unable to assess 12. Distal motor function: 0 - unable to assess Total Score: 10 On follow-up around 13:20, her neurologic exam remains unchanged. I reviewed her case extensively with Dr. Bryson, who agrees that she would benefit from aggressive speech therapy. Unfortunately, we do not currently have speech services available at our facility. After discussion with her daughter, who is at bedside, I have initiated a transfer to [facility]. I have completed a doc-to-doc with hospitalist, Dr. Veto Sullivan, who has generously accepted her for transfer. I have also completed a doc-to-doc with [facility] Neurology, Dr. Alysa Jean, who has also accepted her for transfer. René Bardales M.D.
--- NOTE | 2021-12-13 13:56 | P.DS ---
Admission Date: 12/10/21 Discharge Date: 12/13/21 Disposition: TRANSFER TO [facility] Comment: [facility] Discharge Condition: FAIR Reason for Admission: Right frontal lobe CVA-acute Consultations: 1. Neurology 2. 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 Paty Gil is an 86 year old female with a past medical history significant for chronic obstructive pulmonary disease, chronic kidney disease stage III, and dyslipidemia who was admitted to the [facility] on 12/10/2021 for expressive aphasia. She was admitted to the Medicine service and Neurology was consulted. Upon further evaluation, her CT head revealed, "acute right frontal lobe infarction," a CT head angiogram revealed, "no acute abnormality is displayed," CT neck angiogram revealed, "moderate calcified plaque left carotid bulb results in approximately 60% stenosis. Moderate calcified plaque distal left vertebral artery results in approximately 50% stenosis," MRI head revealed, "large bilateral acute CVA noted, larger on the left. Additional smaller acute infarcts present left frontal and left occipital region. No midline shift is seen. No hemorrhagic component evident. Given the bilateral nature of these infarcts, consider embolic source," an MR head angiogram revealed, "atherosclerotic vascular disease suspected involving right intracranial carotid artery as well as right M1 and M2 branches with diminished flow. No large vessel occlusion evident," and an MR neck angiogram revealed, "multiple areas of atherosclerotic stenosis are seen as detailed above." Initially, her deficits primarily included an expressive aphasia with intermittent receptive aphasia. Today, her symptoms seemed to have been worsening, so a stroke alert was called. STAT CT head was obtained and revealed, "evolving right frontal lobe and left MCA territory infarcts without evidence of hemorrhagic transformation or infarct extension compared with the MRI from 12/12/2021." Her case was reviewed with Dr. Bryson (Neurology), who recommended against tenecteplase as she has been on a heparin drip for suspected cardioembolic stroke. After reviewing her case with Dr. Bryson, it was decided that she would benefit from aggressive speech therapy. Unfortunately, we do not currently have speech services available at our facility. After discussion with her daughter, who is at bedside, transfer was initiated to [facility]. I have completed a doc-to-doc with hospitalist, Dr. Veto Sullivan, who has generously accepted her for transfer. I have also completed a doc-to-doc with [facility] Neurology, Dr. Alysa Jean, who has also accepted her for transfer. In regards to her cardioembolic stroke, the plan is for her to follow-up with Dr. Anderson (Cardiology) in clinic for a Watchman device placement as an outpatient. On 12/13/2021, she was seen on rounds and deemed medically stable for transfer. Her family members were given the opportunity to ask questions and reported no further questions. Furthermore, all questions were answered to the best of my ability. A copy of this discharge summary will be sent to the above providers to facilitate continuity of care. Today, I personally spent 40 minutes on her case, of which greater than 50% of the time was spent in patient education, counseling, and coordination of care as described above. - Physical Exam General: Alert, In no apparent distress, Other (not following commands reliably) HEENT: Atraumatic, Mucous membr. moist/pink, EOMI, Sclerae nonicteric Neck: Supple, JVD not distended Respiratory: Clear to auscultation bilaterally Cardiovascular: No edema, Regular rate/rhythm, Normal S1 S2, No gallops, No rubs, No murmurs Capillary refill: <2 Seconds Gastrointestinal: Normal bowel sounds, Soft and benign, Non-distended, No tenderness, No rebound, No guarding Musculoskeletal: No clubbing Integumentary: No rashes Neurological: Other (difficult to assess, unable to effectively communicate. Appears alert, but with global aphasia. Moving all four extremities equally.) NIH Stroke Scale (extremely limited given global aphasia) 1a. Level of consciousness: 0 - Alert; keenly responsive 1b. LOC questions: 2 - 0 questions right 1c. LOC commands: 2 - performs 0 tasks 2. Best Gaze: 0 - Normal 3. Visual: 0 - unable to assess 4. Facial Palsy: 1 - minor paralysis (flat nasolabial fold, smile asymmetry) 5a. Motor left arm: 0 - unable to assess 5b. Motor right arm: 0 - unable to assess 6a. Motor left le - unable to assess 6b. Motor right le - unable to assess 7. Limb ataxia: 0 - unable to assess 8. Sensory: 0 - unable to assess 9. Best Language: 3 - mute/global aphasia: no usable speech/auditory comprehension 10. Dysarthria: 2 - severe dysarthria: unintelligible slurring or out of proportion to dysphagia 11. Extinction and Inattention: 0 - unable to assess 12. Distal motor function: 0 - unable to assess Total Score: 10 Vital Signs/Physical Exam: Temp Pulse Resp BP Pulse Ox 98.6 F 80 18 123/63 92 12/13/21 08:00 12/13/21 08:00 12/13/21 08:00 12/13/21 08:00 12/13/21 08:00 Laboratory Data at Discharge: WBC 9.00 K/uL (4.3-10.9) 12/11/21 05:24 Hgb 14.6 g/dL (12.0-15.0) 12/11/21 05:24 Hct 43.3 % (36.0-45.0) 12/11/21 05:24 Plt Count 272 K/uL (152-406) 12/11/21 05:24 PT 11.1 SECONDS (9.2-12.8) 12/13/21 05:05 INR 0.93 12/13/21 05:05 APTT Cancelled 12/13/21 05:05 Sodium 134 mmol/L (136-145) L 12/11/21 05:24 Potassium 4.1 mmol/L (3.5-5.1) 12/11/21 05:24 BUN 14 mg/dL (7-18) 12/11/21 05:24 Creatinine 1.10 mg/dL (0.55-1.3) 12/11/21 05:24 Glucose 108 mg/dL (74-106) H 12/11/21 05:24 Magnesium 2.4 mg/dL (1.8-2.4) 12/11/21 05:24 Total Bilirubin 0.7 mg/dL (0.2-1.0) 12/11/21 05:24 AST 34 U/L (15-37) 12/11/21 05:24 ALT 36 U/L (12-78) 12/11/21 05:24 Alkaline Phosphatase 91 U/L (45-117) 12/11/21 05:24 Triglycerides 119 mg/dL (<150) 12/11/21 05:24 Cholesterol 230 mg/dL (<200) H 12/11/21 05:24 HDL Cholesterol 45 mg/dL (40-60) 12/11/21 05:24 Cholesterol/HDL Ratio 5.11 12/11/21 05:24 Home Medications: NK [No Home Meds] 12/10/21 Followup: NONE,NONE [Primary Care Provider] - Tushar Bryson MD [ASSOCIATE-ACTIVE - CAN ADMIT] - Manuelito Anderson MD [ACTIVE - CAN ADMIT] - Time spent managing pt's care (in minutes): 40
--- NOTE | 2021-12-13 13:56 | EKG ---
Test Date: 2021-12-13 Test Time: 06:26:12 Spring Tacker: HB MEASUREMENT RESULTS: Intervals: Rate: 102 WA: QRSD: 92 QT: 378 QTc: 492 Murphy: P: WA: QRS: 51 T: 91 INTERPRETIVE STATEMENTS: Atrial fibrillation with rapid ventricular response Abnormal ECG Compared to ECG 12/10/2021 09:31:37 Sinus rhythm no longer present ST (T wave) deviation no longer present Electronically Signed On 12-13-21 13:54:58 CDT by Manuelito Anderson
--- NOTE | 2021-12-13 18:50 | PN ---
Subjective: Ms. Gil is resting in bed. She appears in no acute distress. She has more difficult y communicating today than yesterday. She is unable to articulate any effective communication. She is not able to respond to any articulated speech and she may; however, mimic movements such as liftin g her arms, which were equally able to move, and she moves her legs equally. Her daughter was in the room and felt that she actually has some decline in her ability to communicate with myself yesterday . She was eventually able to say her name. When the name was pointed out on the board today, she co uld not read, what is your name and answer appropriately. Objective: Vital Signs: Blood pressure 122/63, pulse 80, respiratory rate 18, temperature 98.6, oxy gen saturation 98%. General: Ms. Gil is noted, is resting in bed, in no acute distress. Neurological: Cranial nerves 2 through 12 from observation. She appears to have full ray. Her f chuy is symmetric. There is good excursions as she speaks, although she does not make sense that she speaks. Motor exam in the upper and lower extremities: No apparent focal changes in terms of weakne ss, unable to really assess sensation and coordination. Her ability to stand and transfer out of bed to a chair was done with minimal assistance as she had a gait belt. Laboratory Studies: Complete blood count with differential is unremarkable. Coagulation panel, INR 0.93. Her chemistries showed TSH elevated to 3.820. Otherwise, sodium 134, glucose 108. Liver func tion studies unremarkable. She did have a repeat CT scan without contrast, as the patient's daughter indicated. She apparently had some worsening in her confusion. The study identified an evolving ri ght frontal lobe and left MCA territory infarcts without evidence of hemorrhagic transformation or in farct extension compared with the MRI. There was no evidence of hemorrhagic transformation or infarc t extension. Assessment: Ms. Gil is an 86-year-old patient with multiple likely cardioembolic strokes, which a re large in size, measuring 6 cm in the left parietal region, 4 cm in the right frontal lobe, and a s ubcentimeter infarct in the left frontal lobe and left occipital lobes. Clinically and neurologicall y, she has a global aphasia, inability to comprehend and express herself in any meaningful way. She does not have focal face, arm, leg weakness or numbness, and could stand and transfer with encouragem ent and mimicking activities. Plan: 1.She needs to be in an environment where aggressive speech therapy, first of all, and also occupati onal and physical therapy can be done to help alleviate some of her significant deficits. 2.She is currently on anticoagulation via heparin 25,000 units and given over the 24 hours, she is o n Lipitor 80 mg at bedtime, folic acid 1 mg daily, Lopressor 25 mg twice daily, Zofran as needed. At this point, she may be transferred for a higher level of care as there is no Speech Therapy availabl e at this hospital. TELMA/ELAYNE Voice ID: [id number] Report ID: [id number]
[2021-12-13 19:51] VITALS: BP 144/82; TEMP 97.6
== END 2021-12-13 20:06 | disposition short-term general hospital (02) | DRG 65 ==
LOC: ER 09:07 → ERHOLD 13:26 → 4TH 14:49
PROVIDERS: ADMIT Hospitalist; ATTEND Internal Medicine
DX: I63.9 Cerebral infarction, unspecified (principal); I13.0 Hypertensive heart and chronic kidney disease with heart failure and stage 1 through stage 4 chronic kidney disease, or unspecified chronic kidney disease; I50.42 Chronic combined systolic (congestive) and diastolic (congestive) heart failure; N18.30 Chronic kidney disease, stage 3 unspecified; J44.9 Chronic obstructive pulmonary disease, unspecified; E78.5 Hyperlipidemia, unspecified; I48.0 Paroxysmal atrial fibrillation; I65.21 Occlusion and stenosis of right carotid artery; R47.01 Aphasia; R29.706 NIHSS score 6; R47.81 Slurred speech; R29.810 Facial weakness; R41.0 Disorientation, unspecified; Z28.310 Unvaccinated for COVID-19; Z87.891 Personal history of nicotine dependence; Z79.899 Other long term (current) drug therapy; Z20.822 Contact with and (suspected) exposure to COVID-19
CPT/HCPCS: 36415; 70450; 70496; 70498; 70544; 70549; 70553; 71045; 80048; 80053; 80061; 80307; 81015; 82565; 82947; 83036; 83735; 84439; 84443; 84484; 85025; 85610; 85730; 87086; 87088; 87811; 93005; 93306; 93970; 96365; 97116; 97530; 99285; A9577; J0360; J1630; J1644; J1650; J7030; Q9967

== ENCOUNTER 2021-12-19 14:28 | Inpatient (IN) | payer OTHER ==
--- OUTSIDE RECORDS SUMMARY | 2021-12-20 12:39 | XMS REPORT | Continuity of Care Document ---
:1935 Author Organization [facility] t Address [facility] [place] [address] Care Team Providers Name Role Phone No, Pcp [facility] Primary Care Physician Unavailable ZULY FERNANDES Attending Clinician Unavailable Nate BRADEN, Carlos Sales Attending Clinician [phone] Zuly Fernandes MD Attending Clinician Gisell Liriano MD Attending Clinician CARLOS LAZO Attending Clinician Unavailable GISELL LIRIANO Admitting Clinician Unavailable Payers Payer Name Policy Type Policy Number Effective Date Expiration Date Shabbir PHILIP MEDICARE HMO [id number] 2021 POS 00:00:00 Problems Condition Condition Condition Status Onset Resolution Last Treating Co mments Source Name Details Category Date Date Treatment Clinician Date Stroke Stroke Disease Active 2021-[address] [facility] Allergies, Adverse Reactions, Alerts Allergy Allergy Status Severity Reaction(s) Onset Inactive Treating Comm ents Source Name Type Date Date Clinician NO KNOWN Allergy Active [facility] Social History Social Habit Start Date Stop Date Quantity Comments Source History [facility] Places Medical nter Lived History [facility] Last Year Exposure to 2021-12-04 2021-12-[address] [facility] SARS-CoV-2 (event) 00:00:00 03:01:00 Medica l Center History [facility] 2021-12-14 2021-12-[address] [facility] Unable to 00:00:00 00:00:00 Medical Center Pay Sex Assigned At [address] [facility] 00:00:00 [facility]:00 Medical Center Medications Ordered Filled Start Stop Current Ordering Indication Dosage Frequency Signature Comments Components Source Medication Medication Date Date Medication? Clinician (SIG) Name Name apixaban 2021-02 Yes 5mg Q.5D Take [address] [facility] [address] (ELIQUIS) 5 -01 tablet (5 Nestor es mg Tab 00:00: mg total) Medica l tablet 00 by mouth 2 Center (two) times daily. dextrose 50 2021-02 Yes 12.5g Inject [address] % in water 1-01 mLs (12.5 Luke s (dextrose 00:00: g total) Medi mariola 50%, D50W,) 00 intravenou Ce nter Syrg sly as injection needed (blood sugar less than 70 and patient unable to take PO juice or soda). famotidine 2021-02 Yes 20mg QD Take 1 [facility] (PEPCID) 20 - tablet (20 Soraida kes MG tablet 00:00: mg total) Med ical 00 by mouth Center daily. glucagon 1 2021-02 Yes 1mg Inject [address] mg/mL SolR 1-01 mL (1 mg [facility] injection 00:00: total) Medica l 00 intramuscu Center larly as needed (blood sugar less than 70, patient unable to take PO, AND unable to give D50W due to lack of IV access). hydrALAZINE 2021-02 Yes 10mg Q4H Inject 0.[address] (APRESOLINE 1-01 mLs (10 mg Soraida kes ) 20 mg/mL 00:00: total) Medic al injection 00 intravenou Cent er sly every 4 (four) hours if needed. labetaloL 2021-02 Yes 10mg Inject [address] (NORMODYNE, 1-01 mLs (10 mg Soraida kes TRANDATE) 5 00:00: total) Medi mariola mg/mL 00 intravenou Center injection sly every 4 (four) hours as needed (SBP > 180). melatonin 5 2021-02 Yes 5mg QD Take [address] mg tablet 1-01 tablet (5 [facility] 00:00: mg total) Medical 00 by mouth Center nightly. ondansetron 2021-02 Yes 4mg Inject [address] PF (ZOFRAN) 02-19 mLs (4 mg Nestor es 4 mg/2 mL 00:00: total) Medica l injection 00 intravenou Cent er sly every 8 (eight) hours as needed. aspirin 81 2021-02- Yes 81mg QD Take [address] MG chewable 02-19 tablet (81 L ukes tablet 00:00: 23:59 mg total) Medic al 00 :00 by mouth Center daily. atorvastati 2021-02- Yes 80mg QD Take [address] n (LIPITOR) 02-19 tablet (80 L ukes 80 MG 00:00: 23:59 mg total) Medica l tablet 00 :00 by mouth Center nightly. metoprolol 2021-02- Yes 25mg Q.5D Take [address] tartrate 02-19 tablet (25 Luke s (LOPRESSOR) 00:00: 23:59 mg total) Medical 25 MG 00 :00 by mouth 2 Center tablet (two) times daily. acetaminoph 2021-02- Yes 650mg Take [address] en 02-19 tablets Christian (TYLENOL) 00:00: 23:59 (650 mg Medi mariola 325 MG 00 :00 total) by Center tablet mouth every 6 (six) hours as needed for up to 360 days. ipratropium 2021-02- Yes 3mL Take [address] [address] -albuteroL 02-19 by Christian (DUO-NEB) 00:00: 23:59 nebulizati M edical 0.5 mg-3 00 :00 on every 6 Cente r mg(2.5 mg (six) base)/3 mL hours as nebulizer needed for solution Wheezing or Shortness of Breath for up to 360 days. QUEtiapine 2021-02- Yes 25mg Take [address] [facility] (SEROquel) 02-19 tablet (25 Soraida kes 25 MG 00:00: 23:59 mg total) Medica l tablet 00 :00 by mouth Center every night as needed (restlessn ess, agitation) for up to 30 days. Vital Signs Vital Name Observation Time Observation Value Comments Source WEIGHT 2021-12-19 06:00:00 77.021 kg WEIGHT 2021-12-18 06:00:00 76.9 kg HEIGHT 2021-12-15 18:00:00 167.6 cm WEIGHT 2021-12-15 07:00:00 78.6 kg WEIGHT 2021-12-15 04:00:00 78.6 kg WEIGHT 2021-12-13 22:10:00 75.2 kg WEIGHT 2021-12-19 06:00:00 77.021 kg WEIGHT 2021-12-18 06:00:00 76.9 kg HEIGHT 2021-12-15 18:00:00 167.6 cm WEIGHT 2021-12-15 07:00:00 78.6 kg WEIGHT 2021-12-15 04:00:00 78.6 kg WEIGHT 2021-12-13 22:10:00 75.2 kg WEIGHT 2021-12-19 06:00:00 77.021 kg WEIGHT 2021-12-18 06:00:00 76.9 kg HEIGHT 2021-12-15 18:00:00 167.6 cm WEIGHT 2021-12-15 07:00:00 78.6 kg WEIGHT 2021-12-15 04:00:00 78.6 kg WEIGHT 2021-12-13 22:10:00 75.2 kg Heart rate 2021-12-20 08:48:00 92 /min [facility] Respiratory rate 2021-12-20 08:48:00 18 /min [facility] Oxygen saturation in 2021-12-20 08:48:00 92 /min [facility] Arterial blood by Medical Ce nter Pulse oximetry Systolic blood 2021-12-20 08:00:00 122 mm[Hg] [facility] Diastolic blood 2021-12-20 08:00:00 66 mm[Hg] [facility] Body temperature 2021-12-20 08:00:00 36.39 Adwoa [facility] Body weight 2021-12-19 06:00:00 77.021 kg [facility] BMI 2021-12-19 06:00:00 27.41 kg/m2 [facility] Body height 2021-12-15 18:00:00 167.6 cm [facility] Procedures Procedure Date / Time Performed Performing Clinician Isabella porter POCT-GLUCOSE METER 2021-12-20 06:32:00 [facility] POCT-GLUCOSE METER 2021-12-19 16:35:00 [facility] CBC W/PLT COUNT & AUTO 2021-12-19 05:00:00 [facility] BASIC METABOLIC PANEL 2021-12-19 05:00:00 [facility] CBC W/PLT COUNT & AUTO 2021-12-19 05:00:00 [facility] CBC (HEMOGRAM ONLY) 2021-12-18 04:45:00 [facility] POCT-GLUCOSE METER 2021-12-17 15:30:00 [facility] POCT-GLUCOSE METER 2021-12-17 11:01:00 [facility] BASIC METABOLIC PANEL 2021-12-17 06:15:00 [facility] MAGNESIUM 2021-12-17 06:15:00 [facility] PHOSPHORUS 2021-12-17 06:15:00 [facility] CBC (HEMOGRAM ONLY) 2021-12-17 06:15:00 [facility] POCT-GLUCOSE METER 2021-12-16 16:11:00 [facility] [place] [facility] SWALLOW FUNCT 2021-12-16 11:50:[address] [facility] WITH [facility] BASIC METABOLIC PANEL 2021-12-16 06:22:00 King, [facility] MAGNESIUM 2021-12-16 06:22:00 King, [facility] PHOSPHORUS 2021-12-16 06:22:00 [facility] CBC (HEMOGRAM ONLY) 2021-12-16 06:22:00 King, [facility] POCT-GLUCOSE METER 2021-12-15 16:20:00 [facility] CT BRAIN WITHOUT IV 2021-12-15 13:14:[address] [facility] POCT-GLUCOSE METER 2021-12-15 07:03:00 [facility] CBC W/PLT COUNT & AUTO 2021-12-15 03:36:00 King [facility] BASIC METABOLIC PANEL 2021-12-15 03:36:00 King [facility] MAGNESIUM 2021-12-15 03:36:00 King [facility] PHOSPHORUS 2021-12-15 03:36:00 [facility] CBC W/PLT COUNT & AUTO 2021-12-15 03:36:00 King [facility] POCT-GLUCOSE METER 2021-12-14 23:53:00 [facility] XR ABDOMEN/KUB 1 VIEW 2021-12-14 17:37:00 [facility] POCT-GLUCOSE METER 2021-12-14 16:57:00 [facility] PROTHROMBIN TIME/INR 2021-12-14 13:25:00 Gisell Liriano [facility] TSH/FREE T4 IF INDICATED 2021-12-14 13:25:00 King [facility] CT BRAIN WITHOUT IV 2021-12-14 11:06:00 Craig Jean [facility] COMPREHENSIVE METABOLIC 2021-12-14 06:20:[address] [facility] HEMOGLOBIN A1C 2021-12-14 06:20:00 Gisell Liriano [facility] LIPID PANEL 2021-12-14 06:20:00 Gisell Liraino [facility] PHOSPHORUS 2021-12-14 06:20:00 Gisell Liriano [facility] CBC W/PLT COUNT & AUTO 2021-12-14 06:20:00 Gisell Liriano [facility] DIFFERENTIAL [facility] MAGNESIUM 2021-12-14 06:20:00 Gisell Liriano [facility] CBC W/PLT COUNT & AUTO 2021-12-14 06:20:00 Gisell Liriano [facility] DIFFERENTIAL [facility] POCT-GLUCOSE METER 2021-12-14 06:07:00 Carlos Lazo [facility] XR CHEST 1 VIEW PORTABLE 2021-12-14 02:22:00 Gisell Liriano [facility] / BEDSIDE [facility] POCT-GLUCOSE METER 2021-12-13 22:06:00 [facility] Plan of Care Planned Activity Planned Date Details Comments Source Future Scheduled 2021-10-20 INFLUENZA VACCINE (#1) [facility]00 [code = INFLUENZA Medical Ce nter VACCINE (#1)] Future Scheduled 2021-02-19 FALLS RISK SCREENING [facility] Test 00:00:00 [code = FALLS RISK Medical C enter SCREENING] Future Scheduled 2021-02-19 Medicare IPPE (WELCOME [facility] 00:00:00 TO MEDICARE) [code = Medical Center Medicare IPPE (WELCOME TO MEDICARE)] Future Scheduled 2021-02-[address] [facility] Test 00:00:00 (12+) [code = Medical Center DEPRESSION SCREENING (12+)] Future Scheduled 2001 PNEUMOCOCCAL 65+ Y[facility] Test 00:00:00 (1 - PCV) [code = Medical Ce nter PNEUMOCOCCAL 65+ YRS (1 - PCV)] Future Scheduled 1986 SHINGLES VACCINES ([address] [facility] Test 00:00:00 of 2) [code = SHINGLES Medic al Center VACCINES (1 of 2)] Future Scheduled 1955-06-25 DTAP/TDAP/TD VACCINES [facility] Test 00:00:00 (1 - Tdap) [code = Medical C enter DTAP/TDAP/TD VACCINES (1 - Tdap)] Future Scheduled 1935 COVID-19 VACCINE (#1) CH I [facility] Test 00:00:00 [code = COVID-[address] VACCINE (#1)] Future Scheduled 1935 DXA SCAN [code = DXA [facility] Test 00:00:00 SCAN] Medical Center Encounters Start End Encounter Admission Attending Care Care Encounter Source Date/Time Date/Time Type Type Clinicians Facility Department ID 2021-12-13 2021-12-20 Inpatient UR DOM [facility] [id number] [facility] 21:30:00 11:10:00 ZULY 2021-12-13 2021-12-20 Hospital Normajose albertoCarlos [facility] [id number] [facility] 21:30:00 11:10:00 [facility] 2021-12-14 2021-12-14 Travel [facility] [id number] [facility] 00:00:00 00:00:00 [facility] Results Test Description Test Time Test Comments Results Result Comments Source POC-Glucose meter 2021-12-20 06:50:49 Test Item Value Reference Range Interpretation Comme nts POC-Glucose Meter (test code = 132 mg/dL 70-110 H : [facility] [address] [address]: Cigarette Stamper/Techni kat ID = [id number] for Sadaf Edmond e Lab Interpretation (test code = Abnormal 84777-7) [facility] [id number] 06:50:49 Test Item Value Reference Range Interpretation Comments POC-GLUCOSE METER 132 mg/dL 70-110 H : TESTED A T [facility] [address] (BEAKER) (test code [address] [facility], = 1538) [facility] [place] [facility] [address]: Cigarette Stamper/Techni kat ID = [id number] for Yusra Mathew POCT-GLUCOSE [id number] 16:45:57 Test Item Value Reference Range Interpretation Comments POC-GLUCOSE METER 97 mg/dL 70-110 : TESTED A T [facility] [address] (BEAKER) (test code = [address]) [facility] [address]: Cigarette Stamper/Techni kat ID = [id number] for Sharlene Concepcion BASIC METABOLIC [id number] 06:09:16 Test Item Value Reference Range Interpretation Comments SODIUM (BEAKER) 141 meq/L 135-148 (test code = 381) POTASSIUM 3.4 meq/L 3.6-5.5 L (BEAKER) (test code = 379) CHLORIDE (BEAKER) 109 meq/L 98-106 H (test code = 382) CO2 (BEAKER) 25 meq/L 20-29 (test code = 355) BLOOD UREA 19 mg/dL 10-26 NITROGEN (BEAKER) (test code = 354) CREATININE 0.81 mg/dL 0.50-1.20 (BEAKER) (test code = 358) GLUCOSE RANDOM 95 mg/dL 70-110 (BEAKER) (test code = 652) CALCIUM (BEAKER) 8.8 mg/dL 8.5-10.5 (test code = 697) EGFR (BEAKER) 71 Interpretatio n of eGFR (test code = mL/min/1.73 values Stage De scription 1092) sq m Result G1 Natividad l or high >=90 G2 Mildly decreased 60-89 G3a Mildl y to moderately 45-5 9 G3b Moderately to s everely 30-44 G4 Severl y decreased 15-29 G5 Kidney failure <15Reported eGF R is based on the CKD-EPI 2020 equation that d oes not use a race coefficientEsti mated GFR is not as accur ate as Creatinine Margi obrien in predicting glom erular filtration rate . Estimated GFR is not appl icable for dialysis patien ts Cigarette Stamper ID - [id number] ID - [id number] ID - [id number] ID - [id number] ID - [id number] ID - [id number] ID - [id number] ID - [id number] ID - [id number] ID - [id number] ID - [id number] ID - [id number] ID - [id number] W/PLT COUNT & AUTO DIFFERENTIAL 2021-12-19 05:40:55 Test Item Value Reference Range Interpretation Comments WHITE BLOOD CELL COUNT (BEAKER) 7.5 K/ L 4.0-10.0 (test code = 775) RED BLOOD CELL COUNT (BEAKER) 4.39 M/ L 4.00-5.00 (test code = 761) HEMOGLOBIN (BEAKER) (test code = 13.4 GM/DL 12.0-15.5 410) HEMATOCRIT (BEAKER) (test code = 40.7 % 36.0-46.0 411) MEAN CORPUSCULAR VOLUME (BEAKER) 93 fL 82-99 (test code = 753) MEAN CORPUSCULAR HEMOGLOBIN 30.5 pg 27.0-33.0 (BEAKER) (test code = 751) MEAN CORPUSCULAR HEMOGLOBIN CONC 32.9 GM/DL 32.0-36.0 (BEAKER) (test code = 752) RED CELL DISTRIBUTION WIDTH 14.2 % 12.0-15.0 (BEAKER) (test code = 412) PLATELET COUNT (BEAKER) (test 248 K/CU MM 150-430 code = 756) MEAN PLATELET VOLUME (BEAKER) 10.8 fL 6.0-11.5 (test code = 754) NUCLEATED RED BLOOD CELLS 0 /100 WBC 0-0 (BEAKER) (test code = 413) NEUTROPHILS RELATIVE PERCENT 56 % (BEAKER) (test code = 429) LYMPHOCYTES RELATIVE PERCENT 30 % (BEAKER) (test code = 430) MONOCYTES RELATIVE PERCENT 7 % (BEAKER) (test code = 431) EOSINOPHILS RELATIVE PERCENT 6 % (BEAKER) (test code = 432) BASOPHILS RELATIVE PERCENT 1 % (BEAKER) (test code = 437) NEUTROPHILS ABSOLUTE COUNT 4.16 K/ L 1.80-8.00 (BEAKER) (test code = 670) LYMPHOCYTES ABSOLUTE COUNT 2.22 K/ L 1.48-4.50 (BEAKER) (test code = 414) MONOCYTES ABSOLUTE COUNT (BEAKER) 0.50 K/ L 0.00-1.30 (test code = 415) EOSINOPHILS ABSOLUTE COUNT 0.48 K/ L 0.00-0.50 (BEAKER) (test code = 416) BASOPHILS ABSOLUTE COUNT (BEAKER) 0.07 K/ L 0.00-0.20 (test code = 417) IMMATURE GRANULOCYTES-RELATIVE 0.30 % 0.00-0.00 H PERCENT (BEAKER) (test code = 2801) CBC (HEMOGRAM ONLY)2021-12-18 05:17:59 Test Item Value Reference Range Interpretation Comments WHITE BLOOD CELL COUNT (BEAKER) 9.3 K/ L 4.0-10.0 (test code = 775) RED BLOOD CELL COUNT (BEAKER) 4.40 M/ L 4.00-5.00 (test code = 761) HEMOGLOBIN (BEAKER) (test code = 13.4 GM/DL 12.0-15.5 410) HEMATOCRIT (BEAKER) (test code = 40.9 % 36.0-46.0 411) MEAN CORPUSCULAR VOLUME (BEAKER) 93 fL 82-99 (test code = 753) MEAN CORPUSCULAR HEMOGLOBIN 30.5 pg 27.0-33.0 (BEAKER) (test code = 751) MEAN CORPUSCULAR HEMOGLOBIN CONC 32.8 GM/DL 32.0-36.0 (BEAKER) (test code = 752) RED CELL DISTRIBUTION WIDTH 14.5 % 12.0-15.0 (BEAKER) (test code = 412) PLATELET COUNT (BEAKER) (test 269 K/CU MM 150-430 code = 756) MEAN PLATELET VOLUME (BEAKER) 10.6 fL 6.0-11.5 (test code = 754) NUCLEATED RED BLOOD CELLS 0 /100 WBC 0-0 (BEAKER) (test code = 413) POCT-GLUCOSE [id number] 15:42:25 Test Item Value Reference Range Interpretation Comments POC-GLUCOSE METER 97 mg/dL 70-110 : TESTED A T [facility] (BEAKER) (test code = [address] [facility] [place] [id number]: Cigarette Stamper/Techni kat ID = [id number] for Will iams, Melinda POCT-GLUCOSE [id number] 11:13:20 Test Item Value Reference Range Interpretation Comments POC-GLUCOSE METER 107 mg/dL 70-110 : TESTED A T [facility] [address] (BEAKER) (test code [address], = 1538) [place] [address]: Cigarette Stamper/Techni kat ID = [id number] for Will iams, Melinda [id number] 06:45:56 Test Item Value Reference Range Interpretation Comments MAGNESIUM (BEAKER) (test code = 2.3 mg/dL 1.5-3.0 627) Cigarette Stamper ID - [id number] ID - [id number] ID - [id number] ID - [id number] METABOLIC [id number] 06:43:34 Test Item Value Reference Range Interpretation Comments SODIUM (BEAKER) 141 meq/L 135-148 (test code = 381) POTASSIUM 3.6 meq/L 3.6-5.5 (BEAKER) (test code = 379) CHLORIDE (BEAKER) 112 meq/L 98-106 H (test code = 382) CO2 (BEAKER) 20 meq/L 20-29 (test code = 355) BLOOD UREA 8 mg/dL 10-26 L NITROGEN (BEAKER) (test code = 354) CREATININE 0.78 mg/dL 0.50-1.20 (BEAKER) (test code = 358) GLUCOSE RANDOM 92 mg/dL 70-110 (BEAKER) (test code = 652) CALCIUM (BEAKER) 8.5 mg/dL 8.5-10.5 (test code = 697) EGFR (BEAKER) 74 Interpretatio n of eGFR (test code = mL/min/1.73 values Stage De scription 1092) sq m Result G1 Natividad l or high >=90 G2 Mildly decreased 60-89 G3a Mildl y to moderately 45-5 9 G3b Moderately to s everely 30-44 G4 Severl y decreased 15-29 G5 Kidney failure <15Reported eGF R is based on the CKD-EPI 2020 equation that d oes not use a race coefficientEsti mated GFR is not as accur ate as Creatinine Margi obrien in predicting glom erular filtration rate . Estimated GFR is not appl icable for dialysis patien ts Cigarette Stamper ID - [id number] ID - [id number] ID - [id number] ID - [id number] - [id number] ID - [id number] ID - [id number] ID - [id number] ID - [id number] 06:42:16 Test Item Value Reference Range Interpretation Comments PHOSPHORUS (BEAKER) (test code = 3.5 mg/dL 2.5-4.5 604) Cigarette Stamper ID - [id number] (HEMOGRAM ONLY)2021-12-17 06:24:06 Test Item Value Reference Range Interpretation Comments WHITE BLOOD CELL COUNT (BEAKER) 8.1 K/ L 4.0-10.0 (test code = 775) RED BLOOD CELL COUNT (BEAKER) 4.36 M/ L 4.00-5.00 (test code = 761) HEMOGLOBIN (BEAKER) (test code = 13.3 GM/DL 12.0-15.5 410) HEMATOCRIT (BEAKER) (test code = 40.6 % 36.0-46.0 411) MEAN CORPUSCULAR VOLUME (BEAKER) 93 fL 82-99 (test code = 753) MEAN CORPUSCULAR HEMOGLOBIN 30.5 pg 27.0-33.0 (BEAKER) (test code = 751) MEAN CORPUSCULAR HEMOGLOBIN CONC 32.8 GM/DL 32.0-36.0 (BEAKER) (test code = 752) RED CELL DISTRIBUTION WIDTH 14.7 % 12.0-15.0 (BEAKER) (test code = 412) PLATELET COUNT (BEAKER) (test 243 K/CU MM 150-430 code = 756) MEAN PLATELET VOLUME (BEAKER) 10.0 fL 6.0-11.5 (test code = 754) NUCLEATED RED BLOOD CELLS 0 /100 WBC 0-0 (BEAKER) (test code = 413) POCT-GLUCOSE [id number] 16:22:52 Test Item Value Reference Range Interpretation Comments POC-GLUCOSE METER 88 mg/dL 70-110 : TESTED A T [facility] (BEAKER) (test code = [address], [address]) [facility] [address]: Cigarette Stamper/Techni kat ID = [id number] for Miriam is, Jamarcus [place], STEPHENIEOPH, SWALLOW FUNCTION, WITH CINE OR [id number] 14:22:00Reason for exam:->[facility]ag[facility] 1935 Sex: FFINAL REPORT Limited esophagram, 12/16/2021 A swallowing function study was performed by the speech pathologist and images were obtained that will be reported by by the speech pathologist. Total dose: 30.25 mGy, reference air method Signed: Xiomy Ch MDReport Verified Date/Time: 12/16/2021 14:22:09 Reading Location: [facility] Radiology Reading Room BASI METABOLIC [id number] 06:52:29 Test Item Value Reference Range Interpretation Comments SODIUM (BEAKER) 139 meq/L 135-148 (test code = 381) POTASSIUM 3.4 meq/L 3.6-5.5 L (BEAKER) (test code = 379) CHLORIDE (BEAKER) 111 meq/L 98-106 H (test code = 382) CO2 (BEAKER) 19 meq/L 20-29 L (test code = 355) BLOOD UREA 9 mg/dL 10-26 L NITROGEN (BEAKER) (test code = 354) CREATININE 0.91 mg/dL 0.50-1.20 (BEAKER) (test code = 358) GLUCOSE RANDOM 109 mg/dL 70-110 (BEAKER) (test code = 652) CALCIUM (BEAKER) 8.3 mg/dL 8.5-10.5 L (test code = 697) EGFR (BEAKER) 62 Interpretatio n of eGFR (test code = mL/min/1.73 values Stage De scription 1092) sq m Result G1 Natividad l or high >=90 G2 Mildly decreased 60-89 G3a Mildl y to moderately 45-5 9 G3b Moderately to s everely 30-44 G4 Severl y decreased 15-29 G5 Kidne y failure <15Reported eGF R is based on the CKD-EPI 2020 equation that d oes not use a race coefficientEsti mated GFR is not as accur ate as Creatinine Margi micah in predicting glom erular filtration rate . Estimated GFR is not appl icable for dialysis patien ts Cigarette Stamper ID - LITOOperator ID - LITOOperator ID - LITOOperator ID - LITOOperator ID - LITOOperator ID - LITOOperator ID - LITOOperator ID - LITOOperator ID - LITOOperator ID - [id number] 06:49:11 Test Item Value Reference Range Interpretation Comments MAGNESIUM (BEAKER) (test code = 2.0 mg/dL 1.5-3.0 627) Cigarette Stamper ID - LITOOperator ID - LITOOperator ID - LITOOperator ID - YOBANI [id number] 06:48:07 Test Item Value Reference Range Interpretation Comments PHOSPHORUS (BEAKER) (test code = 1.5 mg/dL 2.5-4.5 LL 604) Cigarette Stamper ID - [id number] (HEMOGRAM ONLY)2021-12-16 06:30:45 Test Item Value Reference Range Interpretation Comments WHITE BLOOD CELL COUNT (BEAKER) 10.4 K/ L 4.0-10.0 H (test code = 775) RED BLOOD CELL COUNT (BEAKER) 4.24 M/ L 4.00-5.00 (test code = 761) HEMOGLOBIN (BEAKER) (test code = 13.0 GM/DL 12.0-15.5 410) HEMATOCRIT (BEAKER) (test code = 39.5 % 36.0-46.0 411) MEAN CORPUSCULAR VOLUME (BEAKER) 93 fL 82-99 (test code = 753) MEAN CORPUSCULAR HEMOGLOBIN 30.7 pg 27.0-33.0 (BEAKER) (test code = 751) MEAN CORPUSCULAR HEMOGLOBIN CONC 32.9 GM/DL 32.0-36.0 (BEAKER) (test code = 752) RED CELL DISTRIBUTION WIDTH 14.6 % 12.0-15.0 (BEAKER) (test code = 412) PLATELET COUNT (BEAKER) (test 250 K/CU MM 150-430 code = 756) MEAN PLATELET VOLUME (BEAKER) 10.1 fL 6.0-11.5 (test code = 754) NUCLEATED RED BLOOD CELLS 0 /100 WBC 0-0 (BEAKER) (test code = 413) POCT-GLUCOSE [id number] 16:32:05 Test Item Value Reference Range Interpretation Comments POC-GLUCOSE METER 118 mg/dL 70-110 H : TESTED A T SLSL 1317 (BEAKER) (test code [address], = 1538) [facility] 77 [id number]: Cigarette Stamper/Techni kat ID = [id number] for Rocio zavaleta Saw CT, BRAIN, WITHOUT [id number] 14:56:00Reason for Exam (Free Text) - Addiitonal information for Radiologist->on anticoagulation [facility]LL RIDER : 1935 Sex: FFINAL REPORT CT, BRAIN, WITHOUT CONTRAST CLINICAL INDICATION: Stroke, follow up COMPARISON: 12/14/2021 TECHNIQUE: Noncontrast axial CT imaging of the brain and skull. Coronal and sagittal reformats are provided. DOSE REDUCTION: Dose modulation, iterative reconstruction, and/or weight-based adjustment of the mA/kV was utilized to reduce the radiation dose to as low as reasonably achievable.FINDINGS:Confluent hypodensity in the right MCA territory involving the right frontal lobe and in the left MCA territory involving the left parietal lobe Midline structures are normally developed. Hypoattenuation within the periventricular and subcortical white matter is present, nonspecific by imaging, however, statistically representing chronic microvascular changes in this age group. Diffuse senescent parenchymal volume loss.No hydrocephalus. Atherosclerotic calcification of the intracranial internal carotid and vertebral arteries. Orbits are within normal limits. No obstructive paranasal sinus d isease.Nasogastric tube is partially imaged. IMPRESSION: 1.No significant change.2.Age-indeterminate, subacute to chronic appearing infarcts in the bilateral MCA territories involving the right frontaland left parietal lobes.If there is persistent clinical concern for intracranial pathology, MR should be considered for further characterization. Signed: Donnell Lacy MDReport Verified Date/Time: 12/15/2021 14:56:13 POCT-GLUCOSE [id number] 07:14:40 Test Item Value Reference Range Interpretation Comments POC-GLUCOSE METER 109 mg/dL 70-110 : TESTED A T SLSL 1317 (BEAKER) (test code [facility] [address], = 1538) [facility] [place] [id number]: Cigarette Stamper/Techni kat ID = [id number] for Saw Sepulveda BASIC METABOLIC [id number] 04:58:04 Test Item Value Reference Range Interpretation Comments SODIUM (BEAKER) 139 meq/L 135-148 (test code = 381) POTASSIUM 3.4 meq/L 3.6-5.5 L (BEAKER) (test code = 379) CHLORIDE (BEAKER) 109 meq/L 98-106 H (test code = 382) CO2 (BEAKER) 19 meq/L 20-29 L (test code = 355) BLOOD UREA 10 mg/dL 10-26 NITROGEN (BEAKER) (test code = 354) CREATININE 0.95 mg/dL 0.50-1.20 (BEAKER) (test code = 358) GLUCOSE RANDOM 162 mg/dL 70-110 H (BEAKER) (test code = 652) CALCIUM (BEAKER) 8.1 mg/dL 8.5-10.5 L (test code = 697) EGFR (BEAKER) 59 Interpretatio n of eGFR (test code = mL/min/1.73 values Stage De scription 1092) sq m Result G1 Natividad l or high >=90 G2 Mildly decreased 60-89 G3a Mildl y to moderately 45-5 9 G3b Moderately to s everely 30-44 G4 Severl y decreased 15-29 G5 Kidney failure <15Reported eGF R is based on the CKD-EPI 2020 equation that d oes not use a race coefficientEsti mated GFR is not as accur ate as Creatinine Margi obrien in predicting glom erular filtration rate . Estimated GFR is not appl icable for dialysis patien ts Cigarette Stamper ID - [id number] ID - [id number] ID - [id number] ID - [id number] ID - [id number] ID - [id number] ID - [id number] ID - [id number] ID - [id number] ID - [id number] 04:55:06 Test Item Value Reference Range Interpretation Comments MAGNESIUM (BEAKER) (test code = 2.1 mg/dL 1.5-3.0 627) Cigarette Stamper ID - [id number] ID - [id number] ID - [id number] ID - [id number] 04:52:24 Test Item Value Reference Range Interpretation Comments PHOSPHORUS (BEAKER) (test code = 3.0 mg/dL 2.5-4.5 604) Cigarette Stamper ID - [id number] W/PLT COUNT & AUTO [id number] 04:28:12 Test Item Value Reference Range Interpretation Comments WHITE BLOOD CELL COUNT (BEAKER) 9.4 K/ L 4.0-10.0 (test code = 775) RED BLOOD CELL COUNT (BEAKER) 4.44 M/ L 4.00-5.00 (test code = 761) HEMOGLOBIN (BEAKER) (test code = 13.3 GM/DL 12.0-15.5 410) HEMATOCRIT (BEAKER) (test code = 41.4 % 36.0-46.0 411) MEAN CORPUSCULAR VOLUME (BEAKER) 93 fL 82-99 (test code = 753) MEAN CORPUSCULAR HEMOGLOBIN 30.0 pg 27.0-33.0 (BEAKER) (test code = 751) MEAN CORPUSCULAR HEMOGLOBIN CONC 32.1 GM/DL 32.0-36.0 (BEAKER) (test code = 752) RED CELL DISTRIBUTION WIDTH 14.5 % 12.0-15.0 (BEAKER) (test code = 412) PLATELET COUNT (BEAKER) (test 280 K/CU MM 150-430 code = 756) MEAN PLATELET VOLUME (BEAKER) 10.5 fL 6.0-11.5 (test code = 754) NUCLEATED RED BLOOD CELLS 0 /100 WBC 0-0 (BEAKER) (test code = 413) NEUTROPHILS RELATIVE PERCENT 69 % (BEAKER) (test code = 429) LYMPHOCYTES RELATIVE PERCENT 21 % (BEAKER) (test code = 430) MONOCYTES RELATIVE PERCENT 7 % (BEAKER) (test code = 431) EOSINOPHILS RELATIVE PERCENT 2 % (BEAKER) (test code = 432) BASOPHILS RELATIVE PERCENT 1 % (BEAKER) (test code = 437) NEUTROPHILS ABSOLUTE COUNT 6.46 K/ L 1.80-8.00 (BEAKER) (test code = 670) LYMPHOCYTES ABSOLUTE COUNT 1.99 K/ L 1.48-4.50 (BEAKER) (test code = 414) MONOCYTES ABSOLUTE COUNT (BEAKER) 0.65 K/ L 0.00-1.30 (test code = 415) EOSINOPHILS ABSOLUTE COUNT 0.14 K/ L 0.00-0.50 (BEAKER) (test code = 416) BASOPHILS ABSOLUTE COUNT (BEAKER) 0.05 K/ L 0.00-0.20 (test code = 417) IMMATURE GRANULOCYTES-RELATIVE 0.70 % 0.00-0.00 H PERCENT (BEAKER) (test code = 2801) RAD, ABDOMEN/KUB 1 VIEW [id number] 02:18:00Reason for exam:->s/p [facility] : 1935 Sex: FFINAL REPORT CLINICAL HISTORY: s/p DHT placement COMPARISON: None. FINDINGS: A single semiupright image of the upper abdomen is submitted. The tip of a feeding tube overlies the expected position of the gastric pylorus/duodenal bulb. The visualized abdominal bowel gas pattern is nonspecificbut grossly unobstructed. Degenerative changes are present in the spine. Signed: Jaron Rodríguez MDReport Verified Date/Time: 12/15/2021 02:18:15 POCT-GLUCOSE [id number] 00:04:06 Test Item Value Reference Range Interpretation Comments POC-GLUCOSE METER 118 mg/dL 70-110 H : TESTED A T SLSL 1317 (BEAKER) (test code [address], = 1538) [place] [id number]: Cigarette Stamper/Techni kat ID = [id number] for Cassie Holliday POCT-GLUCOSE [id number] 17:08:05 Test Item Value Reference Range Interpretation Comments POC-GLUCOSE METER 131 mg/dL 70-110 H : TESTED A T [address]SL 1317 (BEAKER) (test code [address], = 1538) [place] [id number]: Cigarette Stamper/Techni kat ID = [id number] for Saw Sepulveda TSH/FREE T4 IF [id number] 14:07:57 Test Item Value Reference Range Interpretation Comments THYROID STIMULATING HORMONE 3.550 uIU/mL 0.350-5.500 (BEAKER) (test code = 772) Cigarette Stamper ID - [id number] 13:46:07 Test Item Value Reference Range Interpretation Comments PROTIME (BEAKER) 11.4 seconds 9.3-12.0 Final Infor mation (test code = 759) (Auto Outp ut) INR (BEAKER) (test 1.04 See_Comment Final Inf ormation code = 370) (Auto Output) [Automated mess age] The system [employer] generated this result transmitted ref erence range: <=5.90. The reference range was not used to int erpret this result as normal/abnormal . RECOMMENDED COUMADIN/WARFARIN INR THERAPY RANGESSTANDARD DOSE: 2.0 - 3.0 Includes: PROPHYLAXIS for venous thrombosis, systemic embolization; TREATMENT for venous thrombosis and/or pulmonary embolus.HIGH RISK: Target INR is 2.5-3.5 for patients with mechanical heart valves.CT, BRAIN, WITHOUT [id number] 11:20:00[facility] : 1935 Sex: FFINAL REPORT CT, BRAIN, WITHOUT CONTRAST CLINICAL INDICATION: Neuro deficit, acute, stroke suspected COMPARISON: None TECHNIQUE: Noncontrast axial CT imaging of the brain and skull. DOSE REDUCTION: Dose modulation, iterative reconstruction, and/or weight-based adjustment of the mA/kV was utilized to reduce the radiation dose to as low as reasonably achievable. FINDINGS:Recent (likely subacute) infarct of the left posterior frontal and anterior parietal lobe. Localized mass effect with sulcal effacement but no midline shift or herniation. Subacute to chronic infarct of the right inferior frontal lobe. No hemorrhagic conversion or significant mass effect. Scattered foci of hypoattenuationare present throughout the periventricular and subcortical white matter, and, although nonspecific by imaging, statistically represent mild chronic microvascular ischemic changes in this age group. No hydrocephalus. Orbits are within normal limits. No obstructive paranasal sinus disease. Atherosclerotic calcification of the intracranial internal carotid arteries. Left mastoid and middle ear effusion.IMPRESSION: 1.Recent (likely subacute) infarct of the left posterior frontal and anterior parietal lobe. Localized mass effect with sulcal effacement but no midline shift or herniation.2.Subacute to chronic infarct of the right inferior frontal lobe. No hemorrhagic conversion or significant mass effect.3.Left mastoid and middle ear effusion. Findings regarding stroke were discussed with Dr. Fernandes andare noted to the clinical team. If there is persistent clinical concern for intracranial pathology, MR examination is recommended for further characterization. Signed: Pooja Bah MDReport VerifiedDate/Time: 12/14/2021 11:20:59 HEMOGLOBIN [id number] 10:47:41 Test Item Value Reference Range Interpretation Comments HEMOGLOBIN A1C (BEAKER) (test code = 5.1 % 4.3-6.1 368) Cigarette Stamper ID - [id number] METABOLIC [id number] 07:12:55 Test Item Value Reference Range Interpretation Comments TOTAL PROTEIN 6.8 gm/dL 6.0-8.5 (BEAKER) (test code = 770) ALBUMIN (BEAKER) 3.5 g/dL 3.5-5.0 (test code = 1145) ALKALINE 73 U/L 30-115 PHOSPHATASE (BEAKER) (test code = 346) BILIRUBIN TOTAL 0.8 mg/dL 0.1-1.2 (BEAKER) (test code = 377) SODIUM (BEAKER) 137 meq/L 135-148 (test code = 381) POTASSIUM (BEAKER) 3.8 meq/L 3.6-5.5 (test code = 379) CHLORIDE (BEAKER) 110 meq/L 98-106 H (test code = 382) CO2 (BEAKER) (test 18 meq/L 20-29 L code = 355) BLOOD UREA 13 mg/dL 10-26 NITROGEN (BEAKER) (test code = 354) CREATININE 0.82 mg/dL 0.50-1.20 (BEAKER) (test code = 358) GLUCOSE RANDOM 79 mg/dL 70-110 (BEAKER) (test code = 652) CALCIUM (BEAKER) 8.5 mg/dL 8.5-10.5 (test code = 697) AST (SGOT) 36 U/L 5-40 (BEAKER) (test code = 353) ALT (SGPT) 30 U/L 5-50 (BEAKER) (test code = 347) EGFR (BEAKER) 70 Interpretatio n of eGFR (test code = 1092) mL/min/1.[address] age Description sq m Result G1 Natividad l or high >=90 G2 Mildly decreased 60-89 G3a Mildl y to moderately 45-5 9 G3b Moderately to s everely 30-44 G4 Severl y decreased 15-29 G5 Kidney failure <15Reported eGF R is based on the CKD-EPI 2020 equation that d oes not use a race coefficientEsti mated GFR is not as accur ate as Creatinine Margi obrien in predicting glom erular filtration rate . Estimated GFR is not appl icable for dialysis patien ts Cigarette Stamper ID - [id number] ID - [id number] ID - [id number] ID - [id number] ID - [id number] ID - [id number] ID - [id number] ID - CNDK10Jezqigas ID - AJPI20Byavqhfw ID - RWTP17Bownjkyn ID - VSWS43Cfvdnzjg ID - MUCN28Wzadjujm ID - ZZVO82Esavrppr ID - [id number] ID - [id number] ID - [id number] 07:10:02 Test Item Value Reference Range Interpretation Comments MAGNESIUM (BEAKER) (test code = 2.2 mg/dL 1.5-3.0 627) Cigarette Stamper ID - [id number] ID - [id number] ID - [id number] ID - [id number] LIPID [id number] 07:09:03 Test Item Value Reference Range Interpretation Comments TRIGLYCERIDES (BEAKER) (test code = 146 mg/dL 540) CHOLESTEROL (BEAKER) (test code = 201 mg/dL 631) HDL CHOLESTEROL (BEAKER) (test code 41 mg/dL = 976) LDL CHOLESTEROL CALCULATED (BEAKER) 131 mg/dL (test code = 633) Triglyceride Reference Range: Low Risk <150 Borderline 150-199 High Risk 200- 499 Very High Risk >=500Cholesterol Reference Range: Low Risk <200 Borderline 200-239 High Risk >240HDL Cholesterol Reference Range: Low Risk >=60 High Risk <40LDL Cholesterol Reference Range: Optimal <100 Near Optimal 100-129 Borderline 130-159 High 160-189 Very High >=190 Cigarette Stamper ID - [id number] ID - [id number] ID - [id number] 07:06:01 Test Item Value Reference Range Interpretation Comments PHOSPHORUS (BEAKER) (test code = 2.7 mg/dL 2.5-4.5 604) Cigarette Stamper ID - [id number] W/PLT COUNT & AUTO [id number] 06:39:32 Test Item Value Reference Range Interpretation Comments WHITE BLOOD CELL COUNT (BEAKER) 7.5 K/ L 4.0-10.0 (test code = 775) RED BLOOD CELL COUNT (BEAKER) 4.53 M/ L 4.00-5.00 (test code = 761) HEMOGLOBIN (BEAKER) (test code = 13.8 GM/DL 12.0-15.5 410) HEMATOCRIT (BEAKER) (test code = 42.5 % 36.0-46.0 411) MEAN CORPUSCULAR VOLUME (BEAKER) 94 fL 82-99 (test code = 753) MEAN CORPUSCULAR HEMOGLOBIN 30.5 pg 27.0-33.0 (BEAKER) (test code = 751) MEAN CORPUSCULAR HEMOGLOBIN CONC 32.5 GM/DL 32.0-36.0 (BEAKER) (test code = 752) RED CELL DISTRIBUTION WIDTH 13.9 % 12.0-15.0 (BEAKER) (test code = 412) PLATELET COUNT (BEAKER) (test 218 K/CU MM 150-430 code = 756) MEAN PLATELET VOLUME (BEAKER) 10.0 fL 6.0-11.5 (test code = 754) NUCLEATED RED BLOOD CELLS 0 /100 WBC 0-0 (BEAKER) (test code = 413) NEUTROPHILS RELATIVE PERCENT 56 % (BEAKER) (test code = 429) LYMPHOCYTES RELATIVE PERCENT 28 % (BEAKER) (test code = 430) MONOCYTES RELATIVE PERCENT 9 % (BEAKER) (test code = 431) EOSINOPHILS RELATIVE PERCENT 7 % (BEAKER) (test code = 432) BASOPHILS RELATIVE PERCENT 1 % (BEAKER) (test code = 437) NEUTROPHILS ABSOLUTE COUNT 4.20 K/ L 1.80-8.00 (BEAKER) (test code = 670) LYMPHOCYTES ABSOLUTE COUNT 2.11 K/ L 1.48-4.50 (BEAKER) (test code = 414) MONOCYTES ABSOLUTE COUNT (BEAKER) 0.64 K/ L 0.00-1.30 (test code = 415) EOSINOPHILS ABSOLUTE COUNT 0.50 K/ L 0.00-0.50 (BEAKER) (test code = 416) BASOPHILS ABSOLUTE COUNT (BEAKER) 0.06 K/ L 0.00-0.20 (test code = 417) IMMATURE GRANULOCYTES-RELATIVE 0.30 % 0.00-0.00 H PERCENT (BEAKER) (test code = 2801) POCT-GLUCOSE [id number] 06:21:07 Test Item Value Reference Range Interpretation Comments POC-GLUCOSE METER 77 mg/dL 70-110 : Notified RN/MD: TESTED (SHANNEN) (test code = AT [address]) [facility] [id number]: Cigarette Stamper/Techni kat ID = [id number] for Tara Eaton, CHEST, 1 VIEW, NON [id number] 03:20:00Reason for exam:- >HypoxiaShould this be performed at the bedside?->Yes [facility] : 1935 Sex: FFINAL REPORT INDICATION: Hypoxia COMPARISON: None TECHNIQUE: Single frontal view of the chest. FINDINGS: Lungs and pleura: Clear lungs. No effusion. Heart and mediastinum: Normal heart size.Unremarkable mediastinal contours. Osseous structures: No acute abnormality. Other: None. IMPRESSION: No acute intrathoracic abnormality. Signed: Laura Almanzar Verified Date/Time: 12/14/2021 03:20:18 POCT-GLUCOSE [id number] 22:18:24 Test Item Value Reference Range Interpretation Comments POC-GLUCOSE METER 89 mg/dL 70-110 : Notified RN/MD: TESTED (SHANNEN) (test code = AT [facility] [address]) [place] [id number]: Cigarette Stamper/Techni kat ID = [id number] for Tara Eaton
[2021-12-20 12:40] VITALS: BMI 27.0
[2021-12-20] MEDS ORDERED: ACETAMINOPHEN 500 MG TAB PO PRN (14:21)
[2021-12-20] MEDS ORDERED: cloNIDine HCL 0.1 MG TAB PO PRN (14:23)
[2021-12-20] MEDS ORDERED: IPRATROPIUM BROM 0.5MG/2.5ML NEB PRN (14:26)
[2021-12-20] MEDS ORDERED: ALBUTEROL 2.5 MG/3 ML NEB SOL NEB PRN (14:27)
[2021-12-20] MEDS ORDERED: ONDANSETRON 4 MG (ODT) TAB PO PRN (14:30)
[2021-12-20] MEDS ORDERED: DOCUSATE NA/SENNA CONC 1 TAB PO PRN (14:32)
[2021-12-20] MEDS: METOPROLOL TAR 25 MG TAB PO SCH (17:29)
[2021-12-20] MEDS: ATORVASTATIN 80 MG TAB PO SCH (19:15)
[2021-12-20] MEDS: MELATONIN 5 MG TABLET PO PRN (19:16)
[2021-12-20] MEDS: APIXABAN 5 MG TABLET PO SCH (19:16)
--- NOTE | 2021-12-20 20:46 | HP ---
Date of Admission: 12/20/2021 Time Of Visit: 12 noon. Chief Complaint: Stroke with difficulty expressing or understanding speech. History Of Present Illness: Ms. Gil is an 86-year-old patient with atrial fibrillation, congestiv e heart failure, hypertension, chronic kidney disease and chronic obstructive pulmonary disease, who came to [facility] on 12/10/2021 with the sudden onset confusion, disorientation, could not comprehend and expressive speech and was not making sense. The family knew she went to bed and was d oing okay, but then woke up that morning with the symptoms as described. She at baseline did require some assistance with her activities of daily living, but lives with family and was mostly independen t. She came to [facility] where her brain imaging identified bilateral large strokes involv ing the frontal areas bilaterally in addition to additional smaller infarcts in the left frontal and left occipital lobes. Given the atrial fibrillation and evaluation suggestive actually of no large v essel occlusion, the determination was made that the patient had cardioembolic strokes and was treate d with anticoagulation. She was then determined to be a great candidate for aggressive physical and occupational therapy as she has significant speech deficits, dysarthria and some dysphagia. However, at that time, the hospital did not have speech therapy and she was sent to the facility to begin agg ressive therapy. While there, she did begin to make some progress, but [facility] and is now in this facility to acquire speech therapy and has physical and occu pational therapy. She was then brought back to begin physical therapy at [facility]. Her a dmitting diagnosis; stroke and her rehabilitation impairment group is as noted in the admission nasim nolasco, acute stroke. The neurologic diagnosis also as noted in admission screen is secondary to her s troke. Past Medical History: As noted. Past Surgical History: No significant surgical history. Family History: Heart disease in sister. Social History: Smoked in the past. No current smoking or IV drug use. Allergies: NO KNOWN DRUG ALLERGIES. Current Medications: Tylenol 500 mg every 6 hours as needed. Albuterol nebulizer 2.5 mg every 6 rocky rs as needed. Eliquis 5 mg twice daily. Lipitor 80 mg at bedtime. Clonidine 0.1 mg every 4 hours a s needed for systolic blood pressure greater than 170. Pepcid 20 mg daily. Melatonin 5 mg at bedtim e. Metoprolol 25 mg twice daily. Zofran 4 mg at 6 hours as needed. Seroquel 25 mg at bedtime for a gitation. Senokot-S 2 tablets at bedtime. Laboratory Studies: Complete blood count with differential, white blood cell count 9.0, hemoglobin 1 4.6. Chemistries: Sodium 134, potassium 4.1, creatinine 1.1. Liver function studies are normal. T SH 3.820, total cholesterol 230, LDL cholesterol 161, HDL cholesterol 45. COVID-19 test was negative on 12/10/2021. Review of Systems: Difficult to get an accurate review of systems as the patient has significant expressive and receptiv e aphasias. No reported fevers or chills. No cough. No apparent myalgias or arthralgias. No rash. No diarrhea. No difficulty with the urination. Physical Examination: Vital Signs: Blood pressure 139/81, pulse 87, respiratory rate 16, temperature 97.2, oxygen saturati on 95%. General: Ms. Gil is resting in bed. She is smiling and laughing and appears happy. She is in no acute distress. HEENT: She is normocephalic, atraumatic. Sclerae anicteric. Oropharynx is pink and moist. Neck: Supple. Chest: Clear. Heart: Irregularly irregular. Abdomen: Soft. Extremities: Show no significant clubbing, cyanosis, or edema. Neurological: Alert, oriented to person, not to place, situation, time. She has difficulty followin g commands. She was eventually able to show a thumbs-up sign by mimic, but could not do it when told to. She was able to hold up her right hand when asked to show our point with her right finger. She could not do instruction to cross the midline such as take the right index finger and touch her left ear. Her ability to articulate shows some dysarthria as well. She did have mild dysphagia as she w as on a pureed diet. She is being evaluated by Speech Therapy to help with my evaluation of the gareth ent. Cranial nerves showed no obvious deficits. Motor exam, she is in obvious focal weakness despit e multiple strokes in the upper and lower extremities. Sensory exam unable to fully assess. Coordin ation unable to fully assess. Gait: She did ambulate 250 feet and 150 feet with contact guard adela tance without an assistive device. She did ascend and descend 5 steps with contact guard assistance using bilateral handrails. Current level of functioning as noted. She was able to ambulate without assistive device over 250 feet with showing good gait and pacing and stability of gait. She did asce nd and descend 5 steps with contact guard assistance using bilateral handrails. In terms of speech, which is one of her biggest needs, she does have marked expressive and receptive aphasias, some dysar thria and dysphagia and that is she is working very hard on that. Rehabilitation Assessment And Plan: Ms. Gil is a 76-year-old patient with multiple bilateral stro kes affecting language more than sensation, strength, coordination, or balance. She has hypertension , dyslipidemia, and GE reflux along with the constipation and insomnia. She does require aggressive speech therapy along with physical and occupational therapy and management of her multiple comorbid c onditions which are the risk factors for her stroke including atrial fibrillation, dyslipidemia, and hypertension. Rehabilitation impairment group 01.3, bilateral strokes involving the frontal region. Radiologic diagnosis; infarct of the anterior and posterior parietal lobes and frontal lobes from at rial fibrillation. Active comorbid conditions: Atrial fibrillation, congestive heart failure, chron ic kidney disease, essential hypertension, aphasia, dyslipidemia, COPD. Other comorbid conditions an d risks of complication did include deep vein thrombus, urinary tract infection, bowel and bladder in sufficiency, aspiration pneumonia, diffuse muscle weakness, fatigue, hypoxia ulcers, risk of falling, dizziness, urinary tract infection, head injury, aspiration, repeat strokes from atrial f ibrillation, worsening respiratory failure, liver damage, fluid imbalance, anemia, bleeding and pain. Active comorbid conditions present on admission: Atrial fibrillation, hypertension, kidney disease , fluid imbalance, dyslipidemia, muscle weakness, hypoxia, dysphagia, dysarthria. Each of these will be addressed with aggressive physical, occupational, and speech therapy with attention to her medica l condition on a daily basis with medication adjustments for each as noted. Therefore, for stroke, s he is placed on a pureed diet and will be advanced to Speech Therapy. For atrial fibrillation, she w ill be treated with Eliquis 5 mg twice a day. For risk of deep vein thrombosis, Eliquis 5 mg twice a day. For congestive heart failure, her blood parameters will be followed daily. For pneumonia, if need be, chest x-ray will be done. For urinary tract infection, urinalysis will be done. For liver function studies, blood work will be evaluated. For fluid imbalance, electrolytes will be evaluated. For any insomnia, medications at night will be given for sleep. For constipation, medications simp ly given as needed for movement of bowels. Impact of comorbid conditions: Given her atrial fibrillation, she is at risk for additional stroke a nd other stroke risk factors such as hypertension and dyslipidemia. Those will be addressed aggressi vely by medications as indicated. She does have that high risk of falling, high risk of aspiration p neumonia that was addressed as indicated. Rehab specific plan: She will get aggressive physical, occupational and speech therapy for 180 minut es of therapy a day, minimum of 5 of 7 days per week. The physical therapy will be gold 2 words achi eving independence with her mobilization around the house, up and down steps, performing activities w ithout fatigue for risk of falling. Speech Therapy will be done to achieve her independence in eatin g without restriction and all food consistencies and all solids and liquid consistencies. Occupation al therapy will be done such as she can dress upper and lower body independently, perform shower and tolerating transfers all independently. Barriers to discharge: She does have atrial fibrillation which could increase the risk of stroke and that is a barrier but anticoagulation is used. She does have a risk of deep vein thrombosis. She i s on anticoagulation for that. She has a risk of aspiration pneumonia. She will be watched for feve r or cough and chest x-ray should be done as needed. She has the risk of COPD, worsening and that wi ll be addressed as appropriate. Estimated Length Of Stay: Perhaps 15 days. Disposition: She is expected to be discharged home with family where she came from. Prognosis: Good. Rehabilitation Goals: Again to become independent and back to mobilization using no assistive device . Add to up and down steps with no assistive device, to be able to do upper and lower body dressing independently, to eat and swallow without risk of aspiration independently. TELMA/ELAYNE Voice ID: [id number]
[2021-12-20] MEDS: QUETIAPINE 25 MG TAB PO PRN (21:15)
[2021-12-21] MEDS: METOPROLOL TAR 25 MG TAB PO SCH ×2 (05:45→17:37)
[2021-12-21 06:24] LABS: Absolute Lymphocytes (CBC) 2.5 K/uL (0.7-4.9); Hematocrit 42.4 % (36.0-45.0); Lymphocytes % 27.2 % (15.3-44.8); MCV 91.6 fL (80-100); MPV 8.7 fL (7.6-11.3); RBC Red Blood Cell Count 4.63 M/uL (3.86-4.86)
[2021-12-21 06:42] LABS: Albumin 2.9 g/dL (3.4-5.0); Prealbumin 17.2 mg/dL (20-40)
[2021-12-21 06:44] LABS: Magnesium 2.4 mg/dL (1.8-2.4); Potassium 4.2 mmol/L (3.5-5.1)
[2021-12-21] MEDS: APIXABAN 5 MG TABLET PO SCH ×2 (08:18→19:44)
[2021-12-21] MEDS: FAMOTIDINE 20 MG TAB PO SCH (08:18)
--- NOTE | 2021-12-21 12:41 | P.CNS ---
Date of Consult: 12/21/21 Chief Complaint: Painful toenails Allergies No Known Allergies Allergy (Verified 12/20/21 12:47) Home Medications: Atorvastatin Calcium [Lipitor] 80 mg PO BEDTIME tab 12/13/21 Apixaban [Eliquis] 5 mg PO BID 12/20/21 Famotidine 20 mg PO DAILY 12/20/21 Melatonin 5 mg PO BEDTIME PRN 12/20/21 Metoprolol Tartrate 25 mg PO BID 12/20/21 Quetiapine Fumarate [Seroquel] 25 mg PO BEDTIME PRN 12/20/21 - Past Medical/Surgical History Diabetic: No -: CHF -: HTN -: CHF -: COPD -: STROKE -: pt has one living child - Family History Sister Medical History: Heart disease - Social History Smoking Status: Former smoker Alcohol use: No CD- Drugs: No Caffeine use: No Place of Residence: Home Review of Systems 10-point ROS is otherwise unremarkable Physical Examination Temp Pulse Resp BP Pulse Ox 97.5 F 96 H 18 112/57 L 91 12/21/21 06:53 12/21/21 06:53 12/21/21 06:53 12/21/21 06:53 12/21/21 06:53 General: Demented Cardiovascular: No edema, Abnormal pulses (0/4 dp/pt pulse bilateral) Capillary refill: >2 Seconds Integumentary: No rashes, No breakdown, No significant lesion, No tenderness/swelling, No erythema, No warmth, No cyanosis, Other (thickened hypertrophic nails with subungual debris x 10) Neurological: Sensation intact, Dementia Laboratory Data (last 24 hrs) 12/21/21 06:04: Sodium 141, Potassium 4.2, BUN 26 H, Creatinine 1.24, Glucose 87, Magnesium 2.4 12/21/21 06:04: WBC 9.00, Hgb 14.0, Hct 42.4, Plt Count 267 - Problems (1) Generalized atherosclerosis Current Visit: Yes Status: Acute (2) Tinea unguium Current Visit: Yes Status: Acute Conclusions/Impression: Mechanical debridement of nails at bedside Physician Review: Patient Assessed, Agree with Above Assessment and Plan
[2021-12-21 14:55] LABS: Specific Gravity 1.025 (1.005-1.030); Urine Bacteria <20 /HPF (<20); Urine Bilirubin NEGATIVE (Negative); Urine Blood Negative (Negative); Urine Clarity Clear (Clear); Urine Color Yellow (Yellow); Urine Glucose NEGATIVE (Negative); Urine Granular Casts 0-5 /LPF (None Seen); Urine Mucus 2+ /HPF (None Seen); Urine Protein 1+ (Negative); Urine Urobilinogen Normal (Normal); Urine pH 5.5 (5.0-7.0)
[2021-12-21] MEDS: ATORVASTATIN 80 MG TAB PO SCH (19:45)
[2021-12-21] MEDS: QUETIAPINE 25 MG TAB PO PRN (19:45)
--- NOTE | 2021-12-22 01:51 | PN ---
Date of Progress Note: 12/21/2021 Subjective: Ms. Gil is sitting with the speech pathologist working with her. She actually has so me improvement in her communication, although still has much difficulty expressing herself. She was brushing her teeth and was able to carry that out with the speech pathologist helping her. Review of Systems: No overnight fevers or chills, nausea, or vomiting. No myalgias or arthralgias. No rash or headache issues. No psychiatric issues. No other positives on a 10 point systems review. Physical Examination: Vital Signs: Blood pressure 140/62, pulse 84, respiratory rate 18, temperature 97.2, oxygen saturati on 94%. General: Ms. Gil is sitting in a chair beside her bed. She is in no acute distress. HEENT: She appears to be normocephalic, atraumatic. Her sclerae are anicteric. Oropharynx is moist . Neck: Supple. Chest: Clear. Heart: Irregularly regular. Abdomen: Soft. Extremities: No significant edema or cyanosis in her extremities. Neurological: She is oriented only to person and not to situation, place, and time. She takes a lot of encouragement to follow simple commands and can mimic a thumbs up when shown repeatedly. She has no obvious focal weakness in the face, arm, or leg. She has difficulty with coordination, balance, and gait. Laboratory Studies: Complete blood count with differential is unremarkable. Chemistries are unremar kable. Creatinine 1.24, prealbumin 17.2, albumin 2.9. Urinalysis shows esterase 500, white blood ce lls 20-50, bacteria less than 20. She was seen earlier today by [facility] team lead is Dr. Otto Churchill. His diagnosis was tenia unguium. He did mechanical debridement of the nails at bedside. X-ray Imaging: None. Medications: Tylenol Extra Strength 500 mg every 6 hours as needed, Eliquis 5 mg twice daily, aspiri n 81 mg daily, Lipitor 10 mg at bedtime, clonidine 0.1 mg for systolic blood pressure greater than 17 0, Pepcid 20 mg daily, ipratropium nebulizer 0.5 mg every 6 hours as needed, melatonin 5 mg at bedtim e, Lopressor 25 mg twice daily, Zofran 4 mg every 6 hours as needed, Seroquel 25 mg at bedtime for ag itation, and Senokot-S 2 tablets at bedtime. Current Functional Status: Currently, she is able to stand unsupported with dynamic standing activit ies. She is able to maintain her balance while standing despite being pushed from side to side. She ambulated 250 feet 5 times with standby assistance without an assistive device. She maintained good speed with ambulation although she was impulsive. Bed mobility done with multiple stand pivot trans fers without the use of an assistive device. In terms of speech therapy, which is her biggest need, she was able to work with the speech pathologist. She did have significant expressive aphasia. She was oriented to self, about 67% of the time and to place 25% of the time when asked. She did verbal expression with automatic speech and simple object naming. Given cues and verbal model, she is able to demonstrate 50% accuracy on counting 1-20. She demonstrated naming objects 7% independently and 3 3% with simple verbal and written cues. She is making, in terms of progress thus far fair progress w orking with speech therapist. She is making great progress with physical and occupational therapy. Assessment: Ms. 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 She does have some difficulty swallowing, but is actually doing well and will be advanced likely from pureed mechanical soft as she is showing no signs of aspiration. She is ambu lating very well and doing well with occupational therapy. With her comorbid, hypertension is being managed. She has constipation, managed well and the nighttime agitation with Seroquel and dyslipidem ia managed with Lipitor and given the fibrillation, she is on Eliquis and on aspirin and is doing wel l. Comorbids that continue to impact rehabilitation process: She does have atrial fibrillation and is o n anticoagulation. She does have a risk of bleed because of that. She has a risk of aspiration pneu monia. She has a risk of falling because of impulsivity. She has a risk of urinary tract infection that is being mitigated. Her other factors as noted including naus ea have been addressed. LB/MODL Voice ID: [id number] Report ID: [id number]
[2021-12-22] MEDS: METOPROLOL TAR 25 MG TAB PO SCH ×2 (07:30→20:12)
[2021-12-22] MEDS: ASPIRIN 81 MG CHEWABLE TABLET PO SCH (07:30)
[2021-12-22] MEDS: FAMOTIDINE 20 MG TAB PO SCH (07:31)
[2021-12-22] MEDS: APIXABAN 5 MG TABLET PO SCH ×2 (07:31→20:12)
[2021-12-22] MEDS ORDERED: QUETIAPINE 25 MG TAB PO PRN ×2 (13:47→22:00)
[2021-12-22] MEDS: ATORVASTATIN 80 MG TAB PO SCH (20:12)
[2021-12-22] MEDS: CRANBERRY FRUIT EXTRACT 200 MG CAP PO SCH (20:13)
[2021-12-22] MEDS: MELATONIN 5 MG TABLET PO PRN (20:17)
[2021-12-22] MEDS ORDERED: QUETIAPINE 25 MG TAB PO ONE (20:50)
--- NOTE | 2021-12-22 21:30 | PN ---
Date of Progress Note: 12/22/2021 A [id number] visit with patient, Paty Gil. Subjective: Ms. Gil is smiling and happy as the speech pathologist is working with her. She has significant difficulty in communicating and comprehending speech. Review of Systems: No fevers, chills, nausea, vomiting, myalgias, arthralgias, rash, headache. No psychiatric issues. Physical Examination: Vital Signs: Blood pressure 148/66, pulse 77, respiratory rate 16, temperature 97.3, oxygen saturati on 92%. Neurological: Ms. Gil has no cranial nerve focal deficits on terms of 2 through 12. Her strength in the upper and lower extremities symmetric around 4 +/-. Coordination appear intact, and she is m oving the arms and legs. However, she does have significant expressive and receptive aphasias since she is unable to follow instructions to take her right index finger and touch the left ear or do show a thumbs up sign when asked verbally. However, she is able to mimic activities when shown the activ ity. Laboratory Studies: No new laboratory studies. X-ray imaging: No new x-ray imaging. Medications: Unchanged compared to yesterday. Still Eliquis 5 mg twice daily, aspirin 81 mg daily. She is on Lipitor, Catapres, Pepcid, Atrovent, melatonin, Lopressor, Zofran, Seroquel, and Senokot. Current Level Of Functioning: With Physical Therapy, she was able to ambulate [address] andby assistance without the use of an assistive device. She ascended and descended 20 steps with co ntact guard to standby assistance using bilateral handrails. With Speech Therapy, she was able to de monstrate orientation to person, place, time between 50% to 100% of accuracy. She was able to comple te range of motion exercises when mimicked by the therapists. She did complete 20 repetitions of billy gual protrusion, lingual lateralization, and lingual elevation to help with her articulation. Her en durance was poor. Progress towards rehabilitation goals: She is making slow progress with her speech therapy towards r ehabilitation goals of effective communication in both comprehension and expression. Her swallowing is not very well. She is making great progress with physical and occupational therapy. Assessment: Ms. Gil is an 86-year-old patient who has significant expressive and receptive aphasi as who is making fair progress with therapy. She did have bilateral strokes as the etiology. She wynn s comorbid fibrillation. She is on Eliquis and aspirin in addition have multiple comorbid of hyperte nsion that was managed by continuing antihypertensive medications. She does have difficulty with con stipation. She is on Senokot. Difficulty with sleep, she is on melatonin. She has dyslipidemia, tr eated with Lipitor and some pulmonary congestion, which is mild, treated by albuterol nebulizers. Co morbidities that continue to impact rehabilitation process, she does have atrial fibrillation and is on Eliquis along with aspirin. She is at risk of bleeding given that combination and she does have s ignificant difficulty with communication, which could make it difficult to quickly get her to comply with commands in the event of an emergency. Otherwise, her comorbid conditions are managed well. TELMA/ELAYNE Voice ID: [id number] Report ID: [id number]
--- NOTE | 2021-12-23 08:25 | P.RH.PN ---
Estimated Length of Stay: 10 Expected Discharge Date: 12/30/21 Discharge Disposition Plan: Home Family Support: Yes Senior Care Goal: Mobility, Transfers, Self Care Vital Signs: Last Vital Signs Temp 97.0 F 12/22/21 20:09 Pulse 85 12/22/21 20:12 Resp 16 12/22/21 20:09 BP 107/64 12/22/21 20:12 Pulse Ox 95 12/22/21 20:09 Laboratory: Laboratory Last Values WBC 9.00 K/uL (4.3-10.9) 12/21/21 06:04 RBC 4.63 M/uL (3.86-4.86) 12/21/21 06:04 Hgb 14.0 g/dL (12.0-15.0) 12/21/21 06:04 Hct 42.4 % (36.0-45.0) 12/21/21 06:04 MCV 91.6 fL (80-100) 12/21/21 06:04 MCH 30.3 pg (27.0-35.0) 12/21/21 06:04 MCHC 33.1 g/dL (32.0-36.0) 12/21/21 06:04 RDW 14.4 % (12.1-15.2) 12/21/21 06:04 Plt Count 267 K/uL (152-406) 12/21/21 06:04 MPV 8.7 fL (7.6-11.3) 12/21/21 06:04 Neutrophils % 57.2 % (41.7-73.7) 12/21/21 06:04 Lymphocytes % 27.2 % (15.3-44.8) 12/21/21 06:04 Monocytes % 7.3 % (3.3-12.3) 12/21/21 06:04 Eosinophils % 8.0 % (0-4.4) H 12/21/21 06:04 Basophils % 0.3 % (0-1.3) 12/21/21 06:04 Absolute Neutrophils 5.2 K/uL (1.8-8.0) 12/21/21 06:04 Absolute Lymphocytes 2.5 K/uL (0.7-4.9) 12/21/21 06:04 Absolute Monocytes 0.7 K/uL (0.1-1.3) 12/21/21 06:04 Absolute Eosinophils 0.7 K/uL (0-0.5) H 12/21/21 06:04 Absolute Basophils 0.0 K/uL (0-0.5) 12/21/21 06:04 Sodium 141 mmol/L (136-145) 12/21/21 06:04 Potassium 4.2 mmol/L (3.5-5.1) 12/21/21 06:04 Chloride 107 mmol/L (98-107) 12/21/21 06:04 Carbon Dioxide 27 mmol/L (21-32) 12/21/21 06:04 Anion Gap 11.2 mEq/L (5.0-15.0) 12/21/21 06:04 BUN 26 mg/dL (7-18) H 12/21/21 06:04 Creatinine 1.24 mg/dL (0.55-1.3) 12/21/21 06:04 Est GFR (CKD-EPI) 43 ml/min (=/>90) L 12/21/21 06:04 Glucose 87 mg/dL (74-106) 12/21/21 06:04 POC Glucose 91 mg/dL (65-120) 12/20/21 19:17 Calcium 8.5 mg/dL (8.5-10.1) 12/21/21 06:04 Magnesium 2.4 mg/dL (1.8-2.4) 12/21/21 06:04 NT-Pro-B Natriuret Pep 1352 pg/mL (<450) H 12/21/21 06:04 Albumin 2.9 g/dL (3.4-5.0) L 12/21/21 06:04 Prealbumin 17.2 mg/dL (20-40) L 12/21/21 06:04 Urine Color Yellow (Yellow) 12/21/21 14:02 Urine Clarity Clear (Clear) 12/21/21 14:02 Urine pH 5.5 (5.0-7.0) 12/21/21 14:02 Ur Specific [place] 1.025 (1.005-1.030) 12/21/21 14:02 Glucose (UA)(Auto) Negative (Negative) 12/21/21 14:02 Urine Ketones Negative (Negative) 12/21/21 14:02 Urine Blood Negative (Negative) 12/21/21 14:02 Urine Nitrite Negative (Negative) 12/21/21 14:02 Urine Bilirubin Negative (Negative) 12/21/21 14:02 Urine Urobilinogen Normal (Normal) 12/21/21 14:02 Ur Leukocyte Esterase 500 Maribell/uL (Negative) H 12/21/21 14:02 Urine RBC 11-20 /HPF (None Seen) H 12/21/21 14:02 Urine WBC 20-50 /HPF (<5) H 12/21/21 14:02 Ur Squamous Epith Cells 5-10 /HPF (None Seen) 12/21/21 14:02 Urine Bacteria <20 /HPF (<20) 12/21/21 14:02 Hyaline Casts 10-20 /LPF (None Seen) H 12/21/21 14:02 Granular Casts 0-5 /LPF (None Seen) 12/21/21 14:02 Urine Mucus 2+ /HPF (None Seen) 12/21/21 14:02 Urine Total Protein 1+ (Negative) H 12/21/21 14:02 Weight: 167 lb 6.4 oz Wound Present: No Closed Surgical Incision Present: No Negative Pressure Wound Therapy Present: No Physician Update: She has significant difficulty with aphasia and dysphasia. She is impulsive. She is doing well with PT and OT. Will repeat MBS on Sunday and plan for D/C on Sunday. Summary: Patient's care plan and alf goals have been reviewed and revised as necessary. Please see the Rehabilitation Signature page for all necessary signatures.
[2021-12-23] MEDS: APIXABAN 5 MG TABLET PO SCH ×2 (08:54→20:29)
[2021-12-23] MEDS: CRANBERRY FRUIT EXTRACT 200 MG CAP PO SCH ×2 (08:54→20:29)
[2021-12-23] MEDS: ASPIRIN 81 MG CHEWABLE TABLET PO SCH (08:54)
[2021-12-23] MEDS: METOPROLOL TAR 25 MG TAB PO SCH ×2 (08:55→20:29)
[2021-12-23] MEDS: FAMOTIDINE 20 MG TAB PO SCH (08:55)
[2021-12-23] MEDS: QUETIAPINE 25 MG TAB PO PRN ×2 (11:43→20:32)
[2021-12-23] MEDS: ATORVASTATIN 80 MG TAB PO SCH (20:30)
[2021-12-24] MEDS: CRANBERRY FRUIT EXTRACT 200 MG CAP PO SCH ×2 (08:32→18:38)
[2021-12-24] MEDS: ASPIRIN 81 MG CHEWABLE TABLET PO SCH (08:32)
[2021-12-24] MEDS: APIXABAN 5 MG TABLET PO SCH ×2 (08:32→18:39)
[2021-12-24] MEDS: FAMOTIDINE 20 MG TAB PO SCH (08:32)
[2021-12-24] MEDS: METOPROLOL TAR 25 MG TAB PO SCH ×2 (08:34→18:38)
[2021-12-24] MEDS: QUETIAPINE 25 MG TAB PO PRN ×2 (14:26→18:39)
[2021-12-24] MEDS: ATORVASTATIN 80 MG TAB PO SCH (18:38)
[2021-12-25] MEDS: APIXABAN 5 MG TABLET PO SCH ×2 (07:50→18:52)
[2021-12-25] MEDS: FAMOTIDINE 20 MG TAB PO SCH (07:50)
[2021-12-25] MEDS: METOPROLOL TAR 25 MG TAB PO SCH ×2 (07:50→18:51)
[2021-12-25] MEDS: ASPIRIN 81 MG CHEWABLE TABLET PO SCH (07:50)
[2021-12-25] MEDS: CRANBERRY FRUIT EXTRACT 200 MG CAP PO SCH ×2 (07:51→18:53)
[2021-12-25] MEDS: ATORVASTATIN 80 MG TAB PO SCH (18:51)
[2021-12-25] MEDS: QUETIAPINE 25 MG TAB PO PRN ×2 (18:53→21:02)
[2021-12-26] MEDS: APIXABAN 5 MG TABLET PO SCH ×2 (07:58→19:43)
[2021-12-26] MEDS: ASPIRIN 81 MG CHEWABLE TABLET PO SCH (07:58)
[2021-12-26] MEDS: CRANBERRY FRUIT EXTRACT 200 MG CAP PO SCH ×2 (07:58→19:43)
[2021-12-26] MEDS: METOPROLOL TAR 25 MG TAB PO SCH ×2 (07:59→19:43)
[2021-12-26] MEDS: FAMOTIDINE 20 MG TAB PO SCH (08:00)
[2021-12-26] MEDS ORDERED: CYANOCOBALAMIN 1,000 MCG TAB PO SCH (08:00)
--- NOTE | 2021-12-26 14:26 | RAD REPORT ---
EXAM DESCRIPTION: RAD - Barium Swallow Modified - 12/26/2021 2:14 pm CLINICAL HISTORY: DYSPHAGIA COMPARISON: None. TECHNIQUE: The patient was given liquid, semi-solid and solid forms of barium. Lateral view fluorosc opic imaging was performed in conjunction with speech pathology service. FINDINGS: Cineloop acquisitions: 11 Fluoro time: 1 minute 14 seconds laryngeal penetration: not cleared thin aspiration:no cough with thin after the swallow inconsistent other : swallow delay , reduced hyoid excursion, reduced ues opening , reduced coordination of the or al phase IMPRESSION: Modified barium swallow as summarized above and fully detailed on speech pathology repor tHong
[2021-12-26] MEDS: QUETIAPINE 25 MG TAB PO PRN (18:50)
[2021-12-26] MEDS: ATORVASTATIN 80 MG TAB PO SCH (19:43)
--- NOTE | 2021-12-26 23:52 | PN ---
A ovun-hn-wrxy progress note visit with the patient, Paty Gil. Subjective: Ms. Gil is happy, and smiling. She has actually now completed the modified barium sw allow study. Otherwise, she denies any significant complaints. Review of Systems: No fevers or chills. No myalgias, arthralgias and cough. The issue was communication, which is expr essive and receptive aphasia. Otherwise, she denies any positives on systems review. It should be n oted that her modified barium study did show an oral phase of mild impairments. On the swallowing st udy, there was on the pharyngeal phase, also mild impairment there. On the esophageal phase, there w as no impairment. Food consistency recommendation was chopped meats and nectar liquids and oral kyle r exercises. Patient to be upright at 90 degrees, take small bites with sips. The report is detaile d by the speech pathologist in the system. Physical Examination: Vital Signs: Blood pressure 148/69, pulse 76, respiratory rate 18, temperature 97.0, oxygen saturati on 94%. General: Ms. Gil is in no significant distress. HEENT: She is normocephalic, atraumatic. Sclerae anicteric. Oropharynx pink and moist. Heart: Irregular. Abdomen: Soft. Extremities: No edema or cyanosis. Neurologic: She does have slight improvement in her expressive and receptive aphasias. Otherwise, o n cranial nerves no obvious focal deficits noted. On motor examination, has diffuse weakness noted a nd incoordination with her gait. Laboratory Studies: No new laboratory studies. X-ray Imaging: As noted, barium swallow study is reported. Medications: Tylenol 500 mg q.6 hours as needed, albuterol nebulizer 2.5 mg every 6 hours as needed, Eliquis 5 mg twice daily, aspirin 81 mg daily, Lipitor 60 mg at bedtime, clonidine 0.1 mg for systol ic blood pressure greater than 170, vitamin B12 1000 mcg daily, Pepcid 20 mg daily, Lopressor 25 mg d aily, Zofran 4 mg every 6 hours as needed, Seroquel 25 mg at bedtime, quetiapine 12.5 mg daily as nee ded, and Senokot-S 2 at bedtime. Current Functional Status: Currently in terms of her physical therapy, she did participate in gait t raining throughout hospital independently. She corrected her balance issues and had no falls. She a scended and descended 20 steps with bilateral handrails independently. With speech therapy, the ther apist did review the findings of the modified barium swallow study and did show that the patient is a t risk of aspiration pneumonia and did recommend a diet based on results and questions were answered in the past by the therapist and the patient's. Assessment And Plan: Ms. Gil is an 86-year-old patient with expressive and receptive aphasia rela imtiaz to stroke who is making great progress with physical and occupational therapy. She also made sheldon e significant progress with her speech being able to comprehend and express herself somewhat better. Modified barium swallow recommended consistencies as noted above. She has other issues, which are c omorbidities including atrial fibrillation and she is on medications as noted, gastroesophageal reflu x disease, also treated by B12 for anemia and low energy, Seroquel as needed for insomnia and behavio ral issues, which are well controlled. She is on Lipitor for dyslipidemia. Comorbidities that are continuing to impact the rehab process: She is actually doing very well witho ut any significant impacting comorbidities in terms of negatively on her prior therapy. She has bloo d pressure managed, risk for DVT managed, she has aspiration risk addressed and food consistencies wynn ve been adjusted appropriately. She does have some issues of insomnia, which have been addressed and she will be actually ready for discharge in the morning and she will continue therapy via [facility] HOLLIS/ELAYNE Voice ID: [id number] Report ID: [id number]
[2021-12-27 07:40] VITALS: BP 140/60; TEMP 97.7
[2021-12-27] MEDS: CRANBERRY FRUIT EXTRACT 200 MG CAP PO SCH (07:43)
[2021-12-27] MEDS: ASPIRIN 81 MG CHEWABLE TABLET PO SCH (07:44)
[2021-12-27] MEDS: FAMOTIDINE 20 MG TAB PO SCH (07:44)
[2021-12-27] MEDS: METOPROLOL TAR 25 MG TAB PO SCH (07:44)
[2021-12-27] MEDS: APIXABAN 5 MG TABLET PO SCH (07:44)
[2021-12-27] MEDS ORDERED: CYANOCOBALAMIN 1,000 MCG TAB PO SCH (08:00)
== END 2021-12-27 10:30 | disposition home health service (06) | DRG 65 ==
LOC: 5TH 12-20 12:27
PROVIDERS: ADMIT Psychiatry & Neurology Neurology with Special Qualifications in Child Neurology; ATTEND Psychiatry & Neurology Neurology with Special Qualifications in Child Neurology
PROC: 0HBRXZZ Excision of Toe Nail, External Approach (ICD-10-PCS; principal; 2021-12-21)
DX: I63.9 Cerebral infarction, unspecified (principal); I13.0 Hypertensive heart and chronic kidney disease with heart failure and stage 1 through stage 4 chronic kidney disease, or unspecified chronic kidney disease; I50.9 Heart failure, unspecified; N18.9 Chronic kidney disease, unspecified; I48.91 Unspecified atrial fibrillation; J44.9 Chronic obstructive pulmonary disease, unspecified; K59.00 Constipation, unspecified; I70.90 Unspecified atherosclerosis; E78.5 Hyperlipidemia, unspecified; B35.1 Tinea unguium; G47.00 Insomnia, unspecified; F03.90 Unspecified dementia, unspecified severity, without behavioral disturbance, psychotic disturbance, mood disturbance, and anxiety; R47.01 Aphasia; R41.0 Disorientation, unspecified; R47.02 Dysphasia; R53.1 Weakness; Z79.01 Long term (current) use of anticoagulants; Z86.73 Personal history of transient ischemic attack (TIA), and cerebral infarction without residual deficits; Z79.899 Other long term (current) drug therapy; Z87.891 Personal history of nicotine dependence
CPT/HCPCS: 36415; 74230; 80048; 81001; 82040; 82947; 83735; 83880; 84134; 85025; 87077; 87086; 87088; 87186; 92507; 92523; 92526; 92611; 97110; 97112; 97116; 97129; 97161; 97165; 97530

== ENCOUNTER 2022-04-05 09:15 | Emergency (ER) | payer OTHER ==
--- OUTSIDE RECORDS SUMMARY | 2022-04-05 09:20 | XMS REPORT | Continuity of Care Document ---
:1935 Author Organization [facility] t Address [address] [place] [address] Care Team Providers Name Role Phone No, Pcp [facility] Primary Care Physician Unavailable Manuelito Anderson Attending Clinician Unavailable ZULY FERNANDES Attending Clinician Unavailable Nate BRADEN, Veto Sales Attending Clinician [phone] Zuly Fernandes MD Attending Clinician Yung BRADEN, Gisell Suarez Attending Clinician Manuelito Anderson Admitting Clinician Unavailable GISELL LIRIANO Admitting Clinician Unavailable Payers Payer Name Policy Type Policy Number Effective Date Expiration Date S [place] [employer] MEDICARE HMO [id number] 2021 POS 00:00:00 Problems Condition Condition Condition Status Onset Resolution Last Treating Co mments Source Name Details Category Date Date Treatment Clinician Date Stroke Stroke Disease Active 2021-[address] [facility] Allergies, Adverse Reactions, Alerts Allergy Allergy Status Severity Reaction(s) Onset Inactive Treating Comm ents Source Name Type Date Date Clinician No Known DA Active [facility] Allergie 2-06 Clear s 00:00: Klein 00 [facility] NO KNOWN Allergy Active [facility] Social History Social Habit Start Date Stop Date Quantity Comments Source History [facility] Medical nter Lived History [facility] Last Year Exposure to 2021-12-04 2021-12-14 Not sure [facility] SARS-CoV-2 (event) 00:00:00 03:01:00 Medica l Center History [facility] 2021-12-14 2021-12-[address] [facility] [place] [facility] Unable to 00:00:00 00:00:00 Medical Center Pay Sex Ass[birth year] At [birth year] SHEY Zheng 00:00:00 00:00:00 Medical Center Medications Ordered Filled Start Stop Current Ordering Indication Dosage Frequency Signature Comments Components Source Medication Medication Date Date Medication? Clinician (SIG) Name Name labetaloL 2021-02 Yes 10mg Inject 2 [facility] [...] Inject [address] [facility] (ZOFRAN) 1-01 mLs (4 mg Nestor es 4 mg/2 mL 00:00: total) Medica l injection 00 intravenou Cent er sly every 8 (eight) hours as needed. apixaban 2021-02 Yes 5mg Q.5D Take 1 [...] Take 1 [facility] (PEPCID) 20 1-01 tablet (20 Soraida kes MG tablet 00:00: mg total) Med ical 00 by mouth Center daily. glucagon 1 2021-1 Yes 1mg Inject [address] [facility] mg/mL [...] QD Take [address] [facility] mg tablet 1- tablet (5 [facility] 00:00: mg total) Medical 00 by mouth Center nightly. ondansetron 2021-02 Yes 4mg Inject [address] [facility] (ZOFRAN) 1-01 mLs (4 mg Nestor es 4 mg/2 mL 00:00: total) Medica l injection 00 intravenou Cent er sly every 8 (eight) hours as needed. apixaban 2021-02 Yes 5mg Q.5D Take 1 [...] ical 00 by mouth Center daily. glucagon 2021-02 Yes 1mg Inject [address] [facility] [...] QD Take [address] [facility] mg tablet - tablet (5 [facility] 00:00: mg total) Medical 00 by mouth Center nightly. ondansetron 2021-02 Yes 4mg Inject [address] [facility] (ZOFRAN) 1-01 mLs (4 mg Nestor es 4 mg/2 mL 00:00: total) Medica l injection 00 intravenou Cent er sly every 8 (eight) hours as needed. apixaban 2021-02 Yes 5mg Q.5D Take [address] (ELIQUIS) 5 - tablet (5 Nestor es mg Tab 00:00: [...] ical 00 by mouth Center daily. glucagon 2021-02 Yes 1mg Inject [address] [facility] mg/mL SolR -01 mL (1 mg [facility] injection 00:00: total) [...] sly every 4 (four) hours if needed. aspirin 81 2021-02- No 81mg QD Take [address] [facility] MG chewable 02-19 tablet (81 L ukes tablet 00:00: 23:59 mg total) Medic al 00 :00 by mouth Center daily. atorvastati 2021-02- No 80mg QD Take [address] [facility] n (LIPITOR) 02-19 tablet (80 L ukes 80 MG 00:00: 23:59 mg total) Medica l tablet 00 :00 by mouth Center nightly. metoprolol 2021-02- No 25mg Q.5D Take [address] tartrate 02-19 tablet (25 [facility] s (LOPRESSOR) 00:00: 23:59 mg total) Medical 25 MG 00 :00 by mouth 2 Center tablet (two) times daily. aspirin 81 2021-02- No 81mg QD Take [address] [facility] MG chewable 02-19 tablet (81 L ukes tablet 00:00: 23:59 mg total) Medic al 00 :00 by mouth Center daily. atorvastati 2021-02- No 80mg QD Take [address] [facility] n (LIPITOR) 02-19 tablet (80 L ukes 80 MG 00:00: 23:59 mg total) Medica l tablet 00 :00 by mouth Center nightly. metoprolol 2021-02- No 25mg Q.5D Take [address] tartrate 02-19 tablet (25 [facility] (LOPRESSOR) 00:00: 23:59 mg total) Medical 25 MG 00 :00 by mouth 2 Center tablet (two) times daily. aspirin 81 2021-02 No 81mg QD Take [address] [facility] MG chewable 02-19 tablet (81 L ukes tablet 00:00: 23:59 mg total) Medic al 00 :00 by mouth Center daily. atorvastati 2021-02 No 80mg QD Take [address] [facility] n (LIPITOR) 02-19 tablet (80 L ukes 80 MG 00:00: 23:59 mg total) Medica l tablet 00 :00 by mouth Center nightly. metoprolol 2021-02 No 25mg Q.5D Take [address] tartrate 02-19 tablet (25 [facility] (LOPRESSOR) 00:00: 23:59 mg total) Medical 25 MG 00 :00 by mouth 2 Center tablet (two) times daily. acetaminoph 2021-02 No 650mg Take [address] en 02-1927 tablets [facility] (TYLENOL) 00:00: 23:59 (650 mg Medi mariola 325 MG 00 :00 total) by Center tablet mouth every 6 (six) hours as needed for up to 360 days. ipratropium 2021-02 No 3mL Take [address] -albuteroL 02-19 by Lu[employer]amago ([employer]) 00:00: 23:59 nebulizati M edical 0.5 mg-3 00 :00 on every 6 Cente r mg(2.5 mg (six) base)/3 mL hours as nebulizer needed for solution Wheezing or Shortness of Breath for up to 360 days. acetaminoph 2021-02 No 650mg Take [address] en 02-1927 tablets [facility] (TYLENOL) 00:00: 23:59 (650 mg Medi mariola 325 MG 00 :00 total) by Center tablet mouth every 6 (six) hours as needed for up to 360 days. ipratropium 2021-02 No 3mL Take [address] -albuteroL 02-19 by [facility] (Angoss SoftwareO-NEB) 00:00: 23:59 nebulizati M edical 0.5 mg-3 00 :00 on every 6 Cente r mg(2.5 mg (six) base)/3 mL hours as nebulizer needed for solution Wheezing or Shortness of Breath for up to 360 days. acetaminoph 2021-02 650mg Take [address] en 02-19 tablets Soraidakes (TYLENOL) 00:00: 23:59 (650 mg Medi mariola 325 MG 00 :00 total) by Center tablet mouth every 6 (six) hours as needed for up to 360 days. ipratropium 2021-02 3mL Take [address] -albuteroL 02-19 by Christian (DUO-NEB) 00:00: 23:59 nebulizati M edical 0.5 mg-3 00 :00 on every 6 Cente r mg(2.5 mg (six) base)/3 mL hours as nebulizer needed for solution Wheezing or Shortness of Breath for up to 360 days. QUEtiapine 2021-02 No 25mg Take [address] [facility] (SEROquel) 02-19 tablet (25 Soraida kes 25 MG 00:00: 23:59 mg total) Medica l tablet 00 :00 by mouth Center every night as needed (restlessn ess, agitation) for up to 30 days. QUEtiapine 2021-02 25mg Take [address] [facility] (SEROquel) 02-19 tablet (25 Soraida kes 25 MG 00:00: 23:59 mg total) Medica l tablet 00 :00 by mouth Center every night as needed (restlessn ess, agitation) for up to 30 days. QUEtiapine 2021-02 No 25mg Take [address] [facility] (SEROquel) 02-19 [...] kg Heart rate 2021-12-20 08:48:00 92 /min [facility] Respiratory rate 2021-12-20 08:48:00 18 /min [facility] Oxygen saturation in 2021-12-20 08:48:00 92 /min [facility] Arterial blood by Medical Ce nter Pulse oximetry Systolic blood 2021-12-20 08:00:00 122 mm[Hg] [facility] Diastolic blood 2021-12-20 08:00:00 66 mm[Hg] [facility] Body temperature 2021-12-20 08:00:00 36.39 Adwoa [facility] Body weight 2021-12-19 06:00:00 77.021 kg [facility] BMI 2021-12-19 06:00:00 27.41 kg/m2 [facility] Body height 2021-12-15 18:00:00 167.6 cm [facility] Procedures Procedure Date / Time Performing Clinician Source Performed [id number] 2022-03-29 00:00:00 RASSA [facility] [id number] 2022-03-29 00:00:00 ALDMO [facility] POCT-GLUCOSE METER 2021-12-20 06:32:00 [facility] 2021-12-19 16:35:00 [facility] W/PLT COUNT & AUTO 2021-12-19 05:00:00 [facility] CBC W/PLT COUNT & AUTO 2021-12-19 05:00:00 [facility] BASIC METABOLIC PANEL 2021-12-19 05:00:00 [facility] CBC (HEMOGRAM ONLY) 2021-12-18 04:45[facility] 2021-12-17 15:30:00 [facility] POCT-GLUCOSE METER 2021-12-17 11:01:00 [facility] BASIC METABOLIC PANEL 2021-12-17 06:15:00 [facility] 2021-12-17 06:15[facility]00 [facility] 2021-12-17 06:15:00 [facility] CBC (HEMOGRAM ONLY) 2021-12-17 06:15:00 [facility] POCT-GLUCOSE METER 2021-12-16 16:11:00 [facility] FL ESOPH SWALLOW FUNCT 2021-12-16 11:50:00 Zuly Fernandes [facility] WITH CINE [facility] BASIC METABOLIC PANEL 2021-12-16 06:22:00 [facility] 2021-12-16 06:22[facility] 2021-12-16 06:22[facility] 2021-12-16 06:22:00 [facility] POCT-GLUCOSE METER 2021-12-15 16:20:00 [facility] 2021-12-15 13:14:00 Rebecca Arriaga [facility] POCT-GLUCOSE METER 2021-12-15 07:03:00 Fernandes [facility] CBC W/PLT COUNT & AUTO 2021-12-15 03:36:00 King [facility] CBC W/PLT COUNT & AUTO 2021-12-15 03:36[facility] 2021-12-15 03:36:00 King, [facility] MAGNESIUM 2021-12-15 03:36:00 [facility] 2021-12-15 03:36:00 [facility] POCT-GLUCOSE METER 2021-12-14 23:53:00 [facility] XR ABDOMEN/KUB 1 VIEW 2021-12-14 17:37:00 [facility] PO[facility]SE METER 2021-12-14 16:57:00 [facility] PROTHROMBIN TIME/INR 2021-12-14 13:25:00 Gisell Liriano [facility] TSH/FREE T4 IF INDICATED 2021-12-14 13:25:[address] [facility] [address] BRAIN WITHOUT IV 2021-12-14 11:06:00 Craig Jean I [facility] CBC W/PLT COUNT & AUTO 2021-12-14 06:20:00 Gisell Liriano [facility] COMPREHENSIVE METABOLIC 2021-12-14 06:20:[address] [facility] HEMOGLOBIN A1C 2021-12-14 06:20:00 Yung Gisellfederico Suarez [facility] LIPID PANEL 2021-12-14 06:20:00 Gisell Liriano [facility] PHOSPHORUS 2021-12-14 06:20:00 Gisell Liriano [facility] CBC W/PLT COUNT & AUTO 2021-12-14 06:20:00 Gisell Liriano [facility] DIFFERENTIAL [facility] Center MAGNESIUM 2021-12-14 06:20:00 Gisell Liriano [facility] POCT-GLUCOSE METER 2021-12-14 06:07:00 Veto Sullivan [facility] XR CHEST 1 VIEW PORTABLE 2021-12-14 02:22:00 Gisell Liriano [facility] / BEDSIDE [facility] POCT-GLUCOSE METER 2021-12-13 22:06:00 Nate [facility] EKG-SCANNED 2021-12-13 00:00:00 [facility] Plan of Care Planned Activity Planned Date Details Comments Source Future Scheduled 2022-02-[address] [facility] Test 00:00:00 WELLNESS (YEAR 2 or Medical Center FIRST YEAR if no IPPE) [code = MEDICARE ANNUAL WELLNESS (YEAR 2 or FIRST YEAR if no IPPE)] Future Scheduled 2022-02-[address] [facility] Test 00:00:00 WELLNESS (YEAR 2 or Medical Center FIRST YEAR if no IPPE) [code = MEDICARE ANNUAL WELLNESS (YEAR 2 or FIRST YEAR if no IPPE)] Future Scheduled 2022-02-[address] [facility] Test 00:00:00 (12+) [code = Medical Center DEPRESSION SCREENING (12+)] Future Scheduled 2022-02-19 FALLS RISK SCREENING [facility] Test 00:00:00 [code = FALLS RISK Medical C enter SCREENING] Future Scheduled 2022-02-[address] [facility] Test 00:00:00 (12+) [code = Medical Center DEPRESSION SCREENING (12+)] Future Scheduled 2022-02-19 FALLS RISK SCREENING [facility] Test 00:00:00 [code = FALLS RISK Medical C enter SCREENING] Future Scheduled 2021-10-20 INFLUENZA VACCINE (#1) [facility] 00:00:00 [code = INFLUENZA Medical Ce nter VACCINE (#1)] Future Scheduled 2021-10-20 INFLUENZA VACCINE (#1) [facility] 00:00:00 [code = INFLUENZA Medical Ce nter VACCINE (#1)] Future Scheduled 2021-10-20 INFLUENZA VACCINE (#1) [facility] 00:00:00 [code = INFLUENZA Medical Ce nter VACCINE (#1)] Future Scheduled 2021-02-[address] [facility] Test 00:00:00 (12+) [code = Medical Center DEPRESSION SCREENING (12+)] Future Scheduled 2021-02-19 FALLS RISK SCREENING [facility] Test 00:00:00 [code = FALLS RISK Medical C enter SCREENING] Future Scheduled 2021-02-19 Medicare IPPE (WELCOME [facility] 00:00:00 TO MEDICARE) [code = Medical Center Medicare IPPE (WELCOME TO MEDICARE)] Future Scheduled 2001 PNEUMOCOCCAL 65+ YRS [facility] Test 00:00:00 (1 - PCV) [code = Medical Ce nter PNEUMOCOCCAL 65+ YRS (1 - PCV)] Future Scheduled 2001 PNEUMOCOCCAL 65+ YRS [facility] Test 00:00:00 (1 - PCV) [code = Medical Ce nter PNEUMOCOCCAL 65+ YRS (1 - PCV)] Future Scheduled 2001 PNEUMOCOCCAL 65+ YRS [facility] Test 00:00:00 (1 - PCV) [code = Medical Ce nter PNEUMOCOCCAL 65+ YRS (1 - PCV)] Future Scheduled 1986 SHINGLES VACCINES ([address] [facility] Test 00:00:00 of 2) [code = SHINGLES Medic al Center VACCINES (1 of 2)] Future Scheduled 1986 SHINGLES VACCINES ([address] [facility] Test 00:00:00 of 2) [code = SHINGLES Medic al Center VACCINES (1 of 2)] Future Scheduled 1986 SHINGLES VACCINES ([address] [facility] Test 00:00:00 of 2) [code = SHINGLES Medic al Center VACCINES (1 of 2)] Future Scheduled 1955-06-25 DTAP/TDAP/TD VACCINES [facility] 00:00:00 (1 - Tdap) [code = Medical C enter DTAP/TDAP/TD VACCINES (1 - Tdap)] Future Scheduled 1955-06-25 DTAP/TDAP/TD VACCINES [facility] Test 00:00:00 (1 - Tdap) [code = Medical C enter DTAP/TDAP/TD VACCINES (1 - Tdap)] Future Scheduled 1955-06-25 DTAP/TDAP/TD VACCINES [facility] 00:00:00 (1 - Tdap) [code = Medical C enter DTAP/TDAP/TD VACCINES (1 - Tdap)] Future Scheduled [address] [facility] Test 00:00:00 Counseling and Medical Cente r Screening (12+) [code = Tobacco Cessation Counseling and Screening (12+)] Future Scheduled [address] [facility] Test 00:00:00 Counseling and Medical Cente r Screening (12+) [code = Tobacco Cessation Counseling and Screening (12+)] Future Scheduled 1935 COVID-19 VACCINE (#1) [facility] 00:00:00 [code = COVID-[address] VACCINE (#1)] Future Scheduled 1935 COVID-19 VACCINE (#1) [facility] 00:00:00 [code = COVID-[address] VACCINE (#1)] Future Scheduled 1935 COVID-19 VACCINE (#1) [facility] 00:00:00 [code = COVID-[address] VACCINE (#1)] Future Scheduled 1935 DXA SCAN [code = DXA [facility] Test 00:00:00 SCAN] Medical Center Future Scheduled 1936 DXA SCAN [code = DXA [facility] Test 00:00:00 SCAN] Medical Center Future Scheduled 1936 DXA SCAN [code = DXA [facility] Test 00:00:00 SCAN] [facility] Center Encounters Start End Encounter Admission Attending Care Care Encounter Source Date/Time Date/Time Type Type Clinicians Facility Department ID 2022-03-29 2022-03-29 Inpatient MAGO Block CARD [id number] 71 [facility] 05:41:00 15:46:00 Manuelito 53 [facility] 2021-12-13 2021-12-20 Inpatient HALEY BATISTA [facility] Med [id number] [facility] 21:30: 11:10:00 ZULY 2021-12-13 2021-12-20 [facility] [id number] [facility] 21:30: 11:10:00 Encounter Zuly Fernandes, [facility] 2021-12-13 2021-12-20 [facility] [id number] 21:30:00 11:10:00 Encounter Zuly Fernandes, [facility] 2021-12-14 2021-12-14 Travel [facility] [id number] [facility] 00:[facility]:00 [facility] 2021-12-14 2021-12-14 Travel [facility] [id number] [facility] 00[facility]00 [facility] Results Test Description Test Time Test Comments Results Result Comments Source ACT-ISTAT 2022-03-29 08:56:00 Test Item Value Reference Range Interpretation Comme nts ACT-ISTAT (test code = ACTI) 359 SEC 74-137 H Performed by certified four corner stayer machine operator at [facility] - XR CHEST 1 [id number] 00:00:00 [facility] : 1935 Sex: F FAX: Manuelito Taylor MD [phone] [place]: St: ADM Name: CAMPBELL RIDER [facility] Elizabeth : 1935 Age/S: 86/F [address] [place] [address] Bl Unit #: [id number] Loc: [place] [address] Phys: Manuelito Anderson MD Acct: [id number] Dis Date: Status: ADM IN PHONE #: [phone] Exam Date: 03/29/2022 1055 FAX #: [phone] Reason: S/P WATCHMAN Report Has Been Amended EXAMS: CPT CODE: [id number] XR CHEST 1 V 90463 Addendum - 03/29/2022 SIGNED 03/29/2022 ADDENDUM: [id number] RAD/CXR1 IMPRESSION: 1. Mild bilateralpulmonary opacities, most likely related to pulmonary edema. Infection should be excluded clinically. 2. New atrial closure device. at 1158 Reported and signed by: Willie Perez M.D. Report PROCEDURE INFORMATION: Exam: XR Chest Exam date and time: 03/29/2022 9:39 AM Age: 86 years old Clinical indication: Pre-operative exam; Respiratory screening exam; Additional info: S/P watchman TECHNIQUE: Imaging protocol: Radiologic exam of the chest.Views: 1 view. COMPARISON: DX XR CHEST 2 V 03/27/2022 2:54 PM FINDINGS: Lungs: Mild prominence of central pulmonary vasculature. Mild bilateral perihilar and lower lung opacities, most likely related to edema, however infection should be excluded clinically. Slight worsening of pulmonary opacities compared to prior study. Pleural spaces: Small left pleural effusion. Heart/Mediastinum: Atrial appendage closure device identified. Cardiac silhouette is borderline. Vasculature: Aorta tortuous and atherosclerotic. Bones/joints: No definitive acute abnormality. IMPRESSION: 1. Mild bilateral pulmonary opacities, most likely related to pulmonary edema. Infection should be excluded clinically. 2. New adjacent to closure device. PAGE 1 Signed Report (CONTINUED) FAX: Manuelito Taylor MD [phone] [place]: GCSt: ADM -- Name: CAMPBELL RIDER [facility] : 1935 Age/S: 86/F [address] [place] [address] Blvd Unit #: [id number] Loc: [place] [address] Phys: Manuelito Anderson MD Acct: [id number] Dis Date: Status: ADM IN PHONE #:[phone] Exam Date: 03/29/2022 1055 FAX #: [phone] Reason: S/P WATCHMAN Report Has Been A mended EXAMS: CPT CODE: [id number] XR CHEST 1 V 02918 (Continued) at 1158 Reported and signed by: Willie Perez M.D. CC: Manuelito Anderson MD Technologist: RT Alexandru(R) Trnscrd Date/Time/By: 03/29/2022 (1158) : By: [email or web address] Orig Print D/T: S: 03/29/2022 (1158) PAGE 2 Signed ReportBASIC METABOLIC [id number] 15:14:00 Test Item Value Reference Range Interpretation Comments SODIUM (test code = 137 mEq/L 134-147 N NA) POTASSIUM (test code 4.2 mEq/L 3.4-5.0 N = K) CHLORIDE (test code 102 mEq/L 100-108 N = CL) CARBON DIOXIDE (test 30 mEq/l 21-33 N code = CO2) ANION GAP (test code 10 0-20 N = GAP) GLUCOSE (test code = 112 mg/dL 70-110 H GLU) BLOOD UREA NITROGEN 8 mg/dL 7-18 N (test code = BUN) GLOMERULAR 40.3 70-80 L The Glomerular FILTRATION RATE Filtration R ate is a (test code = GFR) calculated parameterbased on serum Creatinine, pat ient age and sex. GFR va luesless than 60 mL/min/ 1.73 square meters a re indicative ofCh ronic Kidney Disease. Values less than 15 mL/min/1.73squa re meters indicate Kidney failure. The calculation forGFR is based on the CKD-EPI (2020) calculat ion. This formulais race indifferent and is the recommended for anika for GFRby the Natio nal Kidney Foundati on for Adults.The GFR will not calculate if th e sex is unknown or if thepatient's ag e is <18 years. CREATININE (test 1.3 mg/dL 0.6-1.3 N code = CREAT) CALCIUM (test code = 9.2 mg/dL 8.0-10.5 N CA) [id number] 15:14:00 Test Item Value Reference Range Interpretation Comments PREALBUMIN (test code = PREALB) 12.1 mg/dL 16.0-40.0 L PROTHROMBIN [id number] 15:11:00 Test Item Value Reference Range Interpretation Comments PROTHROMBIN TIME 18.6 SECONDS 9.3-12.9 H PATIENT (test code = PTP) INTERNATIONAL NORMAL 1.7 0.8-1.2 H TARGET INR BY RATIO (test code = INDICATIO N Indication INR) INR1. Prophylax is of venous thrombos is 2.0 - 3.0 (orthoped ic surgery), Proph ylaxis of venous throm bosis (other than hig h-risk surgery), Treat ment of Deep Vein Thrombosis/Pulm onary Embolism, Preve ntion of systemic emb olism - Tissue heart va lves, Acute Myocardia l Infarction (to prevent systemic emboli sm), Valvular heart disease, Atrial Fibrillation, Bileaflet mecha nical valve in aortic position.2. Mec hanical prosthetic valv es (high risk), 2. 5 - 3.5 Presence of Lup us Anticoagulant o r Antiphospholipi d Antibodies, Pre vention of systemic emb olism - Acute Myocardia l Infarction (to prevent recurrent infar ct). CBC W/AUTO [id number] 14:54:00 Test Item Value Reference Range Interpretation Comments WHITE BLOOD CELL (test code = 8.6 x10 3/uL 4.5-11.0 N WBC) RED BLOOD CELL (test code = 3.86 x10 6/uL 3.54-5.02 N RBC) HEMOGLOBIN (test code = HGB) 11.6 g/dL 11.0-15.0 N HEMATOCRIT (test code = HCT) 36.4 % 33.0-45.0 N MEAN CELL VOLUME (test code = 94.3 fL 81.0-99.0 N MCV) MEAN CELL HGB (test code = MCH) 30.1 pg 27.0-33.0 N MEAN CELL HGB CONCETRATION 31.9 g/dL 33.0-37.0 L (test code = MCHC) RED CELL DISTRIBUTION WIDTH CV 14.4 % 11.5-14.5 N (test code = RDW) RED CELL DISTRIBUTION WIDTH SD 49.1 fL 37.0-54.0 N (test code = RDW-SD) PLATELET COUNT (test code = 310 x10 3/uL 150-400 N PLT) MEAN PLATELET VOLUME (test code 10.5 fL 7.0-9.0 H = MPV) NEUTROPHIL % (test code = NT%) 54.9 % 56.0-77.0 L IMMATURE GRANULOCYTE % (test 0.4 % 0.0-2.0 N code = IG%) LYMPHOCYTE % (test code = LY%) 28.8 % 14.0-32.0 N MONOCYTE % (test code = MO%) 5.7 % 4.8-9.0 N EOSINOPHIL % (test code = EO%) 9.4 % 0.3-3.7 H BASOPHIL % (test code = BA%) 0.8 % 0.0-2.0 N NUCLEATED RBC % (test code = 0.0 % 0-0 N NRBC%) NEUTROPHIL # (test code = NT#) 4.70 x10 3/uL 2.0-7.6 N IMMATURE GRANULOCYTE # (test 0.03 x10 3/uL 0.00-0.03 N code = IG#) LYMPHOCYTE # (test code = LY#) 2.46 x10 3/uL 1.0-3.8 N MONOCYTE # (test code = MO#) 0.49 x10 3/uL 0.1-0.8 N EOSINOPHIL # (test code = EO#) 0.80 x10 3/uL 0.0-0.2 H BASOPHIL # (test code = BA#) 0.07 x10 3/uL 0.0-0.2 N NUCLEATED RBC # (test code = 0.00 x10 3/uL 0.0-0.1 N NRBC#) MANUAL DIFF REQUIRED (test code NO = MDIFF) - XR CHEST 2 [id number] 00:00:00 [facility] 1935 Sex: F FAX: Manuelito Taylor MD [phone] [place]: St: PRE Name: CAMPBELL RIDER [facility] : 1935 Age/S: 86/F [address] [place] [address] Unit #: [id number] Loc: [place] [address] Phys: Manuelito Anderson MD Acct: [id number] Dis Date: Status: PRE IN PHONE #: [phone] Exam Date: 03/27/2022 9115 FAX #: [phone] Reason: PREOP EXAMS: CPT CODE: [id number] XR CHEST 2 V [id number] PROCEDURE INFORMATION: Exam: XR Chest Exam date and time: 03/27/2022 2:54 PM Age: 86 years old Clinical indication: Pre-operative exam; Cardiovascular screening and respiratory screening exam; Additional info: Preop TECHNIQUE: Imaging protocol: Radiologic exam of the chest. Views: 2 views. PA and Lateral COMPARISON: No relevant prior studies available. FINDINGS: Lungs: There are normal lung volumes without consolidation or interstitial opacities. Pleural spaces: Unremarkable. No pleural effusion. No pneumothorax. Heart/Mediastinum: The heart size is normal. The pulmonary vasculature is normal. The mediastinal contour is normal. The trachea is midline. Bones/joints: No acute abnormality seen. IMPRESSION: No acute cardiopulmonary findings. at 1535 Reported and signed by: Neville Montanez M.D. CC: Manuelito Anderson MD Technologist: LISY Gomez) Trnscrd Date/Time/By: 03/27/2022 (153) : By: MelodieTDO Orig Print D/T: S: 03/27/2022 (1534) PAGE 1 Signed ReportPOC-Glucose [id number] 06:50:49 Test Item Value Reference Range Interpretation Comments POC-Glucose Meter (test 132 mg/dL 70-110 H : TE STED AT SLSL code = 1538) [facility] [place] [address]: Community Center Worker/Techni kat ID = [id number] for Edmond, Sadaf e Lab Interpretation (test Abnormal code = 43677-7) [facility] [id number] 06:50:49 Test Item Value Reference Range Interpretation Comments POC-Glucose Meter (test 132 mg/dL 70-110 H : TE STED AT SLSL code = 1538) [address] [place], [place] [address]: Community Center Worker/Techni kat ID = [id number] for Edmond, Sadaf e Lab Interpretation (test Abnormal code = 43499-4) [facility] [id number] 06:50:49 Test Item Value Reference Range Interpretation Comments POC-Glucose Meter (test 132 mg/dL 70-110 H : TE STED AT SLSL code = 1538) [address] [place] [address]: Community Center Worker/Techni kat ID = [id number] for Sadaf Edmond Lab Interpretation (test Abnormal code = 80597-1) [facility] [id number] 06:50:49 Test Item Value Reference Range Interpretation Comments POC-GLUCOSE METER 132 mg/dL 70-110 H : TESTED A T SLSL 1317 (BEAKER) (test code [address], = 1538) [facility] [address]: Community Center Worker/Techni kat ID = [id number] for Yusra Mathew POCT-GLUCOSE [id number] 16:45:57 Test Item Value Reference Range Interpretation Comments POC-GLUCOSE METER 97 mg/dL 70-110 : TESTED A T [facility] 1317 (BEAKER) (test code = [address], 1538) [facility] [address]: Community Center Worker/Techni kat ID = [id number] for Hugh c, Sagimol BASIC METABOLIC [id number] 06:09:16 Test Item Value Reference Range Interpretation [...] not appl icable for dialysis patien ts Community Center Worker ID - [id number] ID - [id number] ID - [id number] ID - [id number] ID - [id number] ID - [id number] ID - [id number] ID - [id number] ID - [id number] ID - [id number] ID - [id number] ID - [id number] ID - [id number] W/PLT COUNT & AUTO DIFFERENTIAL 2021-12-19 05:40:55 [...] 0-0 (BEAKER) (test code = 413) POCT-GLUCOSE [id number] 15:42:25 Test Item Value Reference Range Interpretation Comments POC-GLUCOSE METER 97 mg/dL 70-110 : TESTED A T [facility] 1317 (BEAKER) (test code = [address], 1538) [facility] [address]: Community Center Worker/Techni kat ID = [id number] for Will iaMelinda williamson POCT-GLUCOSE [id number] 11:13:20 Test Item Value Reference Range Interpretation Comments POC-GLUCOSE METER 107 mg/dL 70-110 : TESTED A T [facility] 1317 (BEAKER) (test code [address], = 1538) [facility] [address]: Community Center Worker/Techni kat ID = [id number] for Will iams, Melinda [id number] 06:45:56 Test Item Value Reference Range Interpretation Comments MAGNESIUM (BEAKER) (test code = 2.3 mg/dL 1.5-3.0 627) Community Center Worker ID - [id number] ID - [id number] ID - [id number] ID - [id number] METABOLIC [id number] 06:43:34 Test Item Value Reference Range Interpretation [...] G3b Moderately to s everely 30-44 G4 Sever ly decreased 15-29 G5 Kidney failure <15Repo rted eGFR is based on the CKD-EPI 2020 equation t hat does not use a race coefficientEsti mated GFR is not as accur ate as Creatinine Margi micah in predicting glom erular filtration rate . Estimated GFR is not appl icable for dialysis patien ts Community Center Worker ID - [id number] ID - [id number] ID - [id number] ID - [id number] - JWQZGU279Rkhdjlfm ID - [id number] ID - [id number] ID - [id number] ID - [id number] 06:42:16 Test Item Value Reference Range Interpretation Comments PHOSPHORUS (BEAKER) (test code = 3.5 mg/dL 2.5-4.5 604) Community Center Worker ID - [id number] (HEMOGRAM ONLY)2021-12-17 06:24:06 Test Item Value Reference [...] 0-0 (BEAKER) (test code = 413) POCT-GLUCOSE [id number] 16:22:52 Test Item Value Reference Range Interpretation Comments POC-GLUCOSE METER 88 mg/dL 70-110 : TESTED A T [facility] 1317 (BEAKER) (test code = [address], 1538) [facility] [address]: Community Center Worker/Techni kat ID = [id number] for Miriam is, Jamarcus [place], ESOPH, SWALLOW FUNCTION, WITH CINE OR [id number] 14:22:00Reason for exam:->dysphagia [facility] 1935 Sex: FFINAL REPORT Limited esophagram, 12/16/2021 A swallowing function study was performed by the speech pathologist and images were obtained that will be reported by by the speech pathologist. Total dose: 30.25 mGy, reference air method Signed: Xiomy Ch MDReport Verified Date/Time: 12/16/2021 14:22:09 Reading Location: [facility] Radiology Reading Room BASI METABOLIC [id number] 06:52:29 Test Item Value Reference Range Interpretation [...] G3b Moderately to s everely 30-44 G4 Sever ly decreased 15-29 G5 Kidney failure <15Repo rted eGFR is based on the CKD-EPI 2020 equation t hat does not use a race coefficientEsti mated GFR is not as accur ate as Creatinine Margi micah in predicting glom erular filtration rate . Estimated GFR is not appl icable for dialysis patien ts Community Center Worker ID - LITOOperator ID - LITOOperator ID - LITOOperator ID - LITOOperator ID - LITOOperator ID - LITOOperator ID - LITOOperator ID - LITOOperator ID - LITOOperator ID - [id number] 06:49:11 Test Item Value Reference Range Interpretation Comments MAGNESIUM (BEAKER) (test code = 2.0 mg/dL 1.5-3.0 627) Community Center Worker ID - LITOOperator ID - LITOOperator ID - LITOOperator ID - YOBANI [id number] 06:48:07 Test Item Value Reference Range Interpretation Comments PHOSPHORUS (BEAKER) (test code = 1.5 mg/dL 2.5-4.5 LL 604) Community Center Worker ID - [id number] (HEMOGRAM ONLY)2021-12-16 06:30:45 Test [...] 0-0 (BEAKER) (test code = 413) POCT-GLUCOSE [id number] 16:32:05 Test Item Value Reference Range Interpretation Comments POC-GLUCOSE METER 118 mg/dL 70-110 H : TESTED A T [facility] 1317 (BEAKER) (test code [facility] [address], = 1538) [facility] [address]: Community Center Worker/Techni kat ID = [id number] for Saw Sepulveda CT, BRAIN, WITHOUT [id number] 14:56:00Reason for Exam (Free Text) - Addiitonal information for Radiologist->on anticoagulation [facility] : 1935 Sex: FFINAL [...] considered for further characterization. Signed: Donnell [facility] Verified Date/Time: 12/15/2021 14:56:13 POCT-GLUCOSE [id number] 07:14:40 Test Item Value Reference Range Interpretation Comments POC-GLUCOSE METER 109 mg/dL 70-110 : TESTED A T [facility] 1317 (BEAKER) (test code [address], = 1538) [facility] [address]: Community Center Worker/Techni kat ID = [id number] for Rocio zavaleta Hubertkodak BASIC METABOLIC [id number] 04:58:04 Test Item Value Reference Range Interpretation [...] (test code = 697) EGFR (BEAKER) 59 Interpretati on of eGFR (test code = mL/min/1.73 values Stage De scription 1092) sq m Result G1 Natividad l or high >=90 G2 Mildly decreased 60-89 G3a Mildl y to moderately 45-5 9 G3b Moderately to s everely 30-44 G4 Severl y decreased 15-29 G5 Kidney failure <15Reported eGF R is based on the CKD-EPI 2021 equation that d oes not use a race coefficientEsti mated GFR is not as accur ate as Creatinine Margi micah in predicting glom erular filtration rate . Estimated GFR is not appl icable for dialysis patien ts Community Center Worker ID - [id number] ID - [id number] ID - [id number] ID - [id number] ID - YTZVTXHKJ510Gjefnowl ID - [id number] ID - IZEMDYBHT075Vhxrpoty ID - [id number] ID - [id number] ID - [id number] 04:55:06 Test Item Value Reference Range Interpretation Comments MAGNESIUM (BEAKER) (test code = 2.1 mg/dL 1.5-3.0 627) Community Center Worker ID - [id number] ID - [id number] ID - [id number] ID - [id number] 04:52:24 Test Item Value Reference Range Interpretation Comments PHOSPHORUS (BEAKER) (test code = 3.0 mg/dL 2.5-4.5 604) Community Center Worker ID - [id number] W/PLT COUNT & AUTO [id number] 04:28:12 Test Item Value Reference Range Interpretation [...] code = 2801) RAD, ABDOMEN/KUB 1 VIEW [id number] 02:18:00Reason for exam:->s/p [facility] : 1935 Sex: FFINAL REPORT CLINICAL HISTORY: s/p DHT placement COMPARISON: None. FINDINGS: A single semiupright image of the upper abdomen is submitted. The tip of a feeding tube overlies the expected position of the gastric pylorus/duodenal bulb. The visualized abdominal bowel gas pattern is nonspecificbut grossly unobstructed. Degenerative changes are present in the spine. Signed: Jaron Rodríguez Verified Date/Time: 12/15/2021 02:18:15 POCT-GLUCOSE [id number] 00:04:06 Test Item Value Reference Range Interpretation Comments POC-GLUCOSE METER 118 mg/dL 70-110 H : TESTED A T [facility] 1317 (BEAKER) (test code [address], = 1538) [place] [address]: Community Center Worker/Techni kat ID = [id number] for Cassie Holliday POCT-GLUCOSE [id number] 17:08:05 Test Item Value Reference Range Interpretation Comments POC-GLUCOSE METER 131 mg/dL 70-110 H : TESTED A T [facility] 1317 (BEAKER) (test code [address], = 1538) [place] [address]: Community Center Worker/Techni kat ID = [id number] for Saw Sepulveda TSH/FREE T4 IF [id number] 14:07:57 Test Item Value Reference Range Interpretation Comments THYROID STIMULATING HORMONE 3.550 uIU/mL 0.350-5.500 (BEAKER) (test code = 772) Community Center Worker ID - [id number] TIME/[id number] 13:46:07 Test Item Value Reference Range Interpretation Comments PROTIME (SHANNEN) 11.4 seconds 9.3-12.0 Final Infor mation (test code = 759) (Auto Outp ut) INR (BEAKER) (test 1.04 See_Comment Final Inf ormation code = 370) (Auto Output) [Automated mess age] The system OP3Nvoice generated this result transmitted ref erence range: <=5.90. The reference range was not used to int erpret this result as normal/abnormal . RECOMMENDED COUMADIN/WARFARIN INR THERAPY RANGESSTANDARD DOSE: 2.0 - 3.0 Includes: PROPHYLAXIS for venous thrombosis, systemic embolization; TREATMENT for venous thrombosis and/or pulmonary embolus.HIGH RISK: Target INR is 2.5-3.5 for patients with mechanical heart valves.CT, BRAIN, WITHOUT [id number] 11:20:00[facility] : 1935 Sex: FFINAL [...] Pooja Bah MDReport VerifiedDate/Time: 12/14/2021 11:20:59 HEMOGLOBIN [id number] 10:47:41 Test Item Value Reference Range Interpretation Comments HEMOGLOBIN A1C (BEAKER) (test code = 5.1 % 4.3-6.1 368) Community Center Worker ID - [id number] METABOLIC [id number] 07:12:55 Test Item Value Reference Range Interpretation [...] not appl icable for dialysis patien ts Community Center Worker ID - [id number] ID - SMAU19Njumqisx ID - JYFS71Ngsmkgmn ID - VPBU23Pahaulsb ID - EHHB63Mgqkhuya ID - GHRF37Gumkcztv ID - CPQA95Nyijksxw ID - DUWG77Cmwdivux ID - PPPR50Bulmatzp ID - RGLG55Frgozugh ID - XUSS04Xzandldo ID - ZLFM55Cdcixyyk ID - YWWR58Xbalzrth ID - SWBI43Szpmyskj ID - KEFM52Benjmicr ID - [id number] 07:10:02 Test Item Value Reference Range Interpretation Comments MAGNESIUM (BEAKER) (test code = 2.2 mg/dL 1.5-3.0 627) Community Center Worker ID - [id number] ID - [id number] ID - LXTX20Khrjsagb ID - [id number] LIPID [id number] 07:09:03 Test Item Value Reference Range Interpretation [...] Borderline 130-159 High 160-189 Very High >=190 Community Center Worker ID - [id number] ID - HARA50Hcxacteo ID - [id number] 07:06:01 Test Item Value Reference Range Interpretation Comments PHOSPHORUS (BEAKER) (test code = 2.7 mg/dL 2.5-4.5 604) Community Center Worker ID - [id number] W/PLT COUNT & AUTO [id number] 06:39:32 Test Item Value Reference Range Interpretation [...] PERCENT (BEAKER) (test code = 2801) POCT-GLUCOSE [id number] 06:21:07 Test Item Value Reference Range Interpretation Comments POC-GLUCOSE METER 77 mg/dL 70-110 : Notified RN/MD: TESTED (BEAKER) (test code = AT [facility] [address]) [facility] [address]: Community Center Worker/Techni kat ID = [id number] for Tara Eaton, CHEST, 1 VIEW, NON [id number] 03:20:00Reason for exam:- >HypoxiaShould this be performed at the bedside?->Yes [facility] : 1935 Sex: FFINAL REPORT INDICATION: Hypoxia COMPARISON: None TECHNIQUE: Single frontal view of the chest. FINDINGS: Lungs and pleura: Clear lungs. No effusion. Heart and mediastinum: Normal heart size.Unremarkable mediastinal contours. Osseous structures: No acute abnormality. Other: None. IMPRESSION: No acute intrathoracic abnormality. Signed: Laura Almanzareport Verified Date/Time: 12/14/2021 03:20:18 POCT-GLUCOSE [id number] 22:18:24 Test Item Value Reference Range Interpretation Comments POC-GLUCOSE METER 89 mg/dL 70-110 : Notified RN/MD: TESTED (JORGE LUISAKER) (test code = AT [facility] L [address]) [facility] [address]: Community Center Worker/Techni kat ID = [id number] for Tara Eaton
[2022-04-05] MEDS ORDERED: CEFTRIAXONE 1000 MG/VIAL ONE (10:26)
[2022-04-05] MEDS ORDERED: NA CHLORIDE 0.9% 500 ML ONE (10:27)
[2022-04-05] MEDS ORDERED: NA CHLORIDE 0.9% 50 ML ONE (10:27)
[2022-04-05 10:28] LABS: Absolute Lymphocytes (CBC) 1.8 K/uL (0.7-4.9); Hematocrit 34.8 % (36.0-45.0); Lymphocytes % 16.5 % (15.3-44.8); MCV 90.7 fL (80-100); MPV 8.4 fL (7.6-11.3); RBC Red Blood Cell Count 3.84 M/uL (3.86-4.86)
[2022-04-05 10:42] LABS: Protime INR 1.96
[2022-04-05 10:47] LABS: Albumin 2.6 g/dL (3.4-5.0); Bilirubin Total 0.6 mg/dL (0.2-1.0); Potassium 3.9 mmol/L (3.5-5.1); Protein, Total 6.9 g/dL (6.4-8.2); Troponin High Sensitivity 14.9 pg/mL (<58.9)
--- NOTE | 2022-04-05 11:05 | RAD REPORT ---
EXAM DESCRIPTION: CT - Head Brain Wo Cont - 04/05/2022 10:28 am CLINICAL HISTORY: APHASIA COMPARISON: Ct Stroke Brain Wo Cont dated 12/13/2021; Head angio dated 12/10/2021t Stroke Brain Wo Cont dated 12/13/2021; Head angio dated 12/10/2021 TECHNIQUE: Noncontrast head CT images ad were obtained without IV contrast. Multiplanar reformats we re generated and reviewed. All CT scans are performed using dose optimization technique as appropriate and may include automated exposure control or mA/KV adjustment according to patient size. FINDINGS: No intracranial hemorrhage, mass, or edema. Midline structures are unremarkable. Normal ventricular caliber for age. Mild diffuse parenchymal volume loss. Patchy deep white matter hy poattenuation, nonspecific, but most suggestive of chronic small vessel ischemic changes. Progressive areas of hypoattenuation in the right frontal operculum, anterior insular, and left parie koko region, compatible with expected time interval changes of a remote infarct, in a similar distribu tion to the prior exam. No abnormal extra-axial fluid collections. Partially opacified left mastoid air cells, stable. Left maxillary sinus mucous retention cyst again noted. No acute bony findings. 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 No other acute intracranial process.
--- NOTE | 2022-04-05 11:38 | RAD REPORT ---
EXAM DESCRIPTION: Neva Single View04/05/2022 10:30 am CLINICAL HISTORY: Congestive COMPARISON: November 2021 FINDINGS: Mild left basilar opacity Right lung appears clear of acute infiltrate. Heart is upper limits normal size IMPRESSION: Mild left basilar opacity may represent pneumonia or atelectasis. There may be a small l eft pleural effusion as well.
--- NOTE | 2022-04-05 13:28 | ER ---
Nurse's Notes [facility] Name: Paty Gil Age: 86 yrs Sex: Female : 1935 Arrival Date: 04/05/2022 Time: 09:17 Bed 16 Private MD: Diagnosis: Hypotension due to drugs Presentation: 04/05 09:27 Chief complaint: Spouse and/or significant other states: Low BP this morning. ss reports that blood pressure at home was 75/42. states that he noticed patient was having hallucinations around 5 PM yesterday evening and so he gave her a Melatonin and an unknown PRN medication for agitation. Coronavirus screen: Client denies travel out of the [place] in the last 14 days. Ebola Screen: Patient denies exposure to infectious person. Patient denies travel to an Ebola-affected area in the 21 days before illness onset. Risk Assessment: Do you want to hurt yourself or someone else? Patient reports no desire to harm self or others. Onset of symptoms was April 04, 2022. 09:27 Method Of Arrival: Wheelchair ss 09:27 Acuity: ELEN 2 ss 13:43 Initial Sepsis Screen: Does the patient meet any 2 criteria? Does the patient have a db suspected source of infection? No. Patient's initial sepsis screen is negative. Triage Assessment: 13:42 General: Appears in no apparent distress. Behavior is agitated. db Historical: - Allergies: 09:32 No Known Allergies; ss - Home Meds: 09:32 Eliquis oral [Active]; Simvastatin Oral [Active]; ss - PMHx: 09:32 CHF; COPD; CVA; ss - Immunization history:: Client reports having NOT received the Covid vaccine. - Social history:: Smoking status: Patient denies any tobacco usage or history of. Patient/guardian denies using alcohol, street drugs. Screenin:52 [facility] ED Fall Risk Assessment (Adult) History of falling in the last 3 months, db including since admission No falls in past 3 months (0 pts) Confusion or Disorientation Yes (5 pts) Intoxicated or Sedated No (0 pts) Impaired Gait No (0 pts) Mobility Assist Device Used No (0 pt) Altered Elimination No (0 pt) Score/Fall Risk Level 3 or more points = High Risk Oriented to surroundings, Maintained a safe environment, Educated pt \T\ family on fall prevention, incl call for assistance when getting out of bed. Abuse screen: Denies threats or abuse. Denies injuries from another. Nutritional screening: No deficits noted. Tuberculosis screening: No symptoms or risk factors identified. Assessment: 09:25 Reassessment: per spouse patient is not acting normal. patient is hypotensive normal O2 db above 90% hx of COPD. Reassessment: patient unable to talk due to hx of stroke. Pain:. Neuro: Level of Consciousness is awake, alert, confused, Oriented to unable to assess. patient unable to answer questions of have a conversation due to stroke. Cardiovascular:. 10:10 Reassessment: patient refused NC O2. db 10:36 Reassessment: patient returned from CT. db 11:35 Reassessment: Patient appears in no apparent distress at this time. Patient and/or db family updated on plan of care and expected duration. Pain level reassessed. Patient is alert, oriented x 3, equal unlabored respirations, skin warm/dry/pink. 12:00 Reassessment: Patient appears in no apparent distress at this time. Patient and/or db family updated on plan of care and expected duration. Pain level reassessed. Patient is alert, oriented x 3, equal unlabored respirations, skin warm/dry/pink. General: Appears in no apparent distress. comfortable, Behavior is calm, cooperative. Neuro: Level of Consciousness is awake, alert, obeys commands, Oriented to person. 13:24 Reassessment: Patient appears in no apparent distress at this time. Patient and/or db family updated on plan of care and expected duration. Pain level reassessed. patient ambulatory. assisted patient via wheelchair to restroom. patient missed hat and urinated in toilet. Notified Dr. Keller. Patient spouse does not want catheter for urine. Vital Signs: 09:27 BP 101 / 37; Pulse 99; Resp 18; Pulse Ox 92% on R/A; Weight 73.94 kg (R); Height 5 ft. ss 5 in. (165.10 cm); 09:43 BP 99 / 56; Pulse 85; Resp 18; Pulse Ox 88% on R/A; db 10:30 BP 118 / 45; Pulse 89; Resp 18; Pulse Ox 92% on R/A; db 10:39 Temp 96.2(TE); db 11:00 BP 127 / 57; Pulse 85; Resp 18; Pulse Ox 93% on R/A; db 11:00 BP 127 / 57; Pulse 85; Resp 18; Pulse Ox 95% on R/A; db 12:00 BP 114 / 50; Pulse 75; Resp 18; Pulse Ox 100% on R/A; db 13:42 BP 106 / 60; Pulse 82; Resp 18; Temp 97.8(O); Pulse Ox 95% ; db 09:27 Body Mass Index 27.12 (73.94 kg, 165.10 cm) ss 09:27 reports pt has a hx of COPD and O2 stays above 90% at home ss ED Course: 09:17 Patient arrived in ED. mr 09:18 Sree Keller MD is Attending Physician. bs3 09:32 Triage completed. ss 09:32 Arm band placed on right wrist. ss 09:43 Oxygen administration via nasal cannula \T\ 2L/min. db 09:50 Crissy Cano, KACI is Primary Nurse. db 10:15 Inserted saline lock: 20 gauge in left antecubital area, using aseptic technique. Blood db collected. 10:15 First set of blood cultures drawn by me. db 10:30 Second set of blood cultures drawn by me. db 13:26 Patient has correct armband on for positive identification. Bed in low position. Call db light in reach. Side rails up X 1. Client placed on continuous cardiac and pulse oximetry monitoring. NIBP monitoring applied. 13:42 Warm blanket given. db 13:42 No provider procedures requiring assistance completed. IV discontinued, intact, db bleeding controlled, No redness/swelling at site. Administered Medications: 10:45 Drug: Rocephin (cefTRIAXone) 1 grams Route: IV; Rate: bolus; Site: left antecubital; db 11:30 Follow up: Response: No adverse reaction; IV Status: Completed infusion; IV Intake: 50mldb 10:46 Drug: NS 0.9% 500 ml Route: IV; Rate: bolus; Site: left antecubital; db 13:44 Follow up: Response: No adverse reaction; IV Status: Completed infusion; IV Intake: db 500ml Medication: 10:37 VIS not applicable for this client. db Intake: 11:30 IV: 50ml; Total: 50ml. db 13:44 IV: 500ml; Total: 550ml. db Outcome: 13:28 Discharge ordered by . bs3 13:42 Discharged to home ambulatory, with family. db 13:42 Condition: stable 13:42 Discharge instructions given to family, significant other, Instructed on discharge instructions, follow up and referral plans. 13:45 Patient left the ED. db Signatures: PereaTara burdick DanielRoslyn doss, RN RN Sree Rome MD MD bs3 Crissy Cano RN RN db Corrections: (The following items were deleted from the chart) 13:44 13:42 BP 106 / 60; Pulse 82bpm; Resp 18bpm; Pulse Ox 95%; db db
--- NOTE | 2022-04-05 13:29 | EDPHYS ---
Physician Documentation [facility] Name: Paty Gil Age: 86 yrs Sex: Female : 1935 Arrival Date: 04/05/2022 Time: 09:17 Bed 16 Private MD: ED Physician Sree Keller HPI: 04/05 10:25 This 86 yrs old Female presents to ER via Wheelchair with complaints of Blood bs3 Pressure Problem. 10:25 Patient with a history of CHF? COPD CVA large stroke with expressive aphasia in November bs3 presents with low blood pressure she had a Watchman procedure done 2 weeks ago and her checks her blood pressure regularly and today she had low blood pressure in addition last night she seemed to be a little bit more confused he therefore gave her an unknown medication to sedate her and came in today for the low blood pressure history is limited as patient cannot provide any history. Historical: - Allergies: 09:32 No Known Allergies; ss - Home Meds: 09:32 Eliquis oral [Active]; Simvastatin Oral [Active]; ss - PMHx: 09:32 CHF; COPD; CVA; ss - Immunization history:: Client reports having NOT received the Covid vaccine. - Social history:: Smoking status: Patient denies any tobacco usage or history of. Patient/guardian denies using alcohol, street drugs. ROS: 10:25 Constitutional: Negative for fever, chills bs3 10:25 Unable to obtain ROS due to patient's speech is incomprehensible, patient's inability to understand questions. Exam: 10:25 Constitutional: This is a well developed, well nourished patient who is awake, alert, bs3 and in no acute distress. Head/Face: Normocephalic, atraumatic. Eyes: Pupils equal round and reactive to light, extra-ocular motions intact. Lids and lashes normal. ENT: mmm, no posterior phyarngeal erythema Neck: Trachea midline, no thyromegaly, no neck stiffness Chest/axilla: Normal chest wall appearance and motion. Nontender with no deformity. No lesions are appreciated. Cardiovascular: Irregular rate no murmur Respiratory: Lungs have equal breath sounds bilaterally, clear to auscultation, no respiratory distress Abdomen/GI: Soft, non-tender, no rebound or guarding Skin: Warm, dry with normal turgor. Normal color with no rashes, no lesions, and no evidence of cellulitis. MS/ Extremity: Pulses equal, no cyanosis. Neurovascular intact. Full, normal range of motion. Neuro: Patient responds inappropriately to verbal commands she has an expressive and receptive aphasia no focal weakness in her extremities 11:24 Interpreted by myself A-fib [address] elevations or depressions QTc 447 bs3 Vital Signs: 09:27 BP 101 / 37; Pulse 99; Resp 18; Pulse Ox 92% on R/A; Weight 73.94 kg (R); Height 5 ft. ss 5 in. (165.10 cm); 09:43 BP 99 / 56; Pulse 85; Resp 18; Pulse Ox 88% on R/A; db 10:30 BP 118 / 45; Pulse 89; Resp 18; Pulse Ox 92% on R/A; db 10:39 Temp 96.2(TE); db 11:00 BP 127 / 57; Pulse 85; Resp 18; Pulse Ox 93% on R/A; db 11:00 BP 127 / 57; Pulse 85; Resp 18; Pulse Ox 95% on R/A; db 12:00 BP 114 / 50; Pulse 75; Resp 18; Pulse Ox 100% on R/A; db 13:42 BP 106 / 60; Pulse 82; Resp 18; Temp 97.8(O); Pulse Ox 95% ; db 09:27 Body Mass Index 27.12 (73.94 kg, 165.10 cm) ss 09:27 reports pt has a hx of COPD and O2 stays above 90% at home ss MDM: 09:18 Patient medically screened. bs3 10:25 Differential Diagnosis altered mental status, sepsis, flu, Possible electrolyte bs3 abnormality possible bleed as patient is on anticoagulation possible pericardial injury secondary to Watchman procedure. Data reviewed: vital signs, nurses notes, old medical records, Patient with admission in November for large stroke. ED course: We will check labs will evaluate for an infection patient hypotensive and tachycardic will evaluate for sepsis we will do bedside ultrasound to screen for pericardial effusion/tamponade we will do serial exams. 11:14 ED course: Blood pressure improved, labs notable for elevated BNP but this would not bs3 explain her symptoms her CT brain was negative for acute pathology. 11:20 ED course: hgb did drop from prior discharge (14.6) but likely not enough to explain bs3 her hypotension, this is likely 2/2 medications. 13:24 ED course: Discussed with family patient back to baseline reassessed at 1 PM steady bs3 gait I recommended urinalysis however family refused return precautions given we discussed admission however he did not want to keep her in the hospital. 13:27 Consideration of Admission/Observation. Historians other than the Patient: bs3 Spouse/Significant Other: As patient had a stroke. ED course: X-ray notable for atelectasis versus pneumonia per radiology patient not symptomatic no leukocytosis no tachypnea advised watching and discussing with primary care. 04/05 09:53 Order name: Blood Culture Adult (2) bs3 04/05 09:53 Order name: CBC with Diff bs3 04/05 09:53 Order name: CMP 3 04/05 09:53 Order name: Lactate w/ 2H reflex if indic. bs3 04/05 09:53 Order name: Protime (+inr) 3 04/05 09:53 Order name: Ptt, Activated bs3 04/05 09:53 Order name: Urinalysis W/Microscopic bs3 04/05 09:53 Order name: COVID-19 SARS RT PCR bs3 04/05 09:53 Order name: Troponin High Sensitivity 3 04/05 09:53 Order name: BNP 3 04/05 10:29 Order name: CBC with Automated Diff; Complete Time: 11:11 EDMS 04/05 10:42 Order name: Protime (+INR); Complete Time: 11:11 EDMS 04/05 10:42 Order name: PTT, Activated Partial Thromb; Complete Time: 11:11 EDMS 04/05 10:48 Order name: Comprehensive Metabolic Panel; Complete Time: 11:11 EDMS 04/05 09:53 Order name: EKG; Complete Time: 09:54 3 04/05 09:53 Order name: Accucheck; Complete Time: 10:38 3 04/05 09:53 Order name: Cardiac monitoring; Complete Time: 10:38 3 04/05 09:53 Order name: EKG - Nurse/Tech; Complete Time: 10:38 3 04/05 09:53 Order name: IV Saline Lock - Large Bore; Complete Time: 10:38 3 04/05 09:53 Order name: Labs collected and sent; Complete Time: 10:38 bs3 04/05 09:53 Order name: CT Head Brain wo Cont bs3 04/05 09:53 Order name: XRAY Chest (1 view) bs3 04/05 10:48 Order name: Troponin High Sensitivity; Complete Time: 11:11 EDMS 04/05 10:48 Order name: NT PRO-BNP; Complete Time: 11:11 EDMS 04/05 10:49 Order name: Lactate w/ 2H reflex if indic.; Complete Time: 11:11 EDMS 04/05 11:06 Order name: CT; Complete Time: 11:11 EDMS 04/05 11:39 Order name: RAD; Complete Time: 12:03 EDMS 04/05 12:20 Order name: SARS-COV-2 RT PCR; Complete Time: 13:27 EDMS 04/05 09:53 Order name: O2 Per Protocol; Complete Time: 10:38 bs3 04/05 09:53 Order name: O2 Sat Monitoring; Complete Time: 10:38 bs3 04/05 09:53 Order name: Vital Signs; Complete Time: 10:38 bs3 Administered Medications: 10:45 Drug: Rocephin (cefTRIAXone) 1 grams Route: IV; Rate: bolus; Site: left antecubital; db 11:30 Follow up: Response: No adverse reaction; IV Status: Completed infusion; IV Intake: 50mldb 10:46 Drug: NS 0.9% 500 ml Route: IV; Rate: bolus; Site: left antecubital; db 13:44 Follow up: Response: No adverse reaction; IV Status: Completed infusion; IV Intake: db 500ml Disposition Summary: 04/05/22 13:28 Discharge Ordered Location: Home bs3 Problem: new bs3 Symptoms: are resolved bs3 Condition: Stable bs3 Diagnosis - Hypotension due to drugs bs3 Followup: bs3 - With: Private Physician - When: 2 - 3 days - Reason: Re-evaluation by your physician Discharge Instructions: - Discharge Summary Sheet bs3 - Hypotension bs3 Forms: - Medication Reconciliation Form bs3 - Thank You Letter bs3 - Antibiotic Education bs3 - Prescription Opioid Use bs3 Signatures: Dispatcher [facility] Roslyn Ceja RN RN ss Sree Keller MD MD bs3 Crissy Cano RN RN db
[2022-04-05 14:35] VITALS: BP 106/60; TEMP 97.8; O2SAT 95
--- NOTE | 2022-04-06 11:53 | EKG ---
Test Date: 2022-04-05 Test Time: 10:06:02 Preschool Education Director: KATERYNA MEASUREMENT RESULTS: Intervals: Rate: 96 CO: QRSD: 72 QT: 354 QTc: 447 [place]: P: CO: QRS: 45 T: 62 INTERPRETIVE STATEMENTS: Atrial fibrillation Nonspecific ST and T wave abnormality, probably digitalis effect Abnormal ECG Compared to ECG 12/13/2021 06:26:12 ST (T wave) deviation now present Electronically Signed On 04-06-22 11:51:43 DESIGN SALES CONSULTANT by Manuelito Anderson
== END 2022-04-05 13:45 | disposition home or self-care (01) ==
LOC: ER 09:15
DX: I95.2 Hypotension due to drugs (principal); I50.9 Heart failure, unspecified; J44.9 Chronic obstructive pulmonary disease, unspecified; Z86.73 Personal history of transient ischemic attack (TIA), and cerebral infarction without residual deficits; Z20.822 Contact with and (suspected) exposure to COVID-19; Z79.01 Long term (current) use of anticoagulants
CPT/HCPCS: 87040 ×2; 85025; 36415; 85610; 83605; 85730; 84484; 80053; 83880; 70450; 71045; U0003; J7040; 93005

== ENCOUNTER → 2022-05-11 | Day surgery (SDC) | payer OTHER ==
[~2022-05-11] MED LIST: ATROPINE SULF 1 MG/10 ML SYR IV ONE; FENTANYL CITR 100 MCG/2 ML ONE; FLUMAZENIL 0.1 MG/ML (5 mL VIAL) IV ONE; LIDOCAINE VISCOUS 2% SOLN 15 ML UDC ONE; METOPROLOL TARTRATE 5 MG/5 ML INJ IV ONE; MIDAZOLAM HCL 5 ML ONE; NA CHLORIDE 0.9% 500 ML ONE; NALOXONE 0.4 MG/ML VIAL ONE
--- NOTE | 2022-05-11 12:36 | TEE ---
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 NORMAL LEFT VENTRICULAR EJECTION FRACTION 55-60% 2. WATCHMAN DEVICE IS SEATED WELL, NO THROMBUS, NO LEAK. 3. MILD MITRAL REGURGITATION TECHNOLOGIST: DEMIAN JOHN
--- NOTE | 2022-05-11 17:05 | OP ---
Date of Procedure: 05/11/2022 Surgeon: LINDA LANGLEY Procedure Performed: Transesophageal echocardiogram. Indication: Atrial fibrillation, status post Watchman placement. Description Of Procedure: After risks, benefits, and alternatives were explained, patient agreed to the procedure and signed informed consent. Patient was brought into the cardiac catheterization labo ratory and then after appropriate time-out, back of the throat was numbed using lidocaine and then ga ve 5 mg of Versed and then JOE probe was inserted without difficulty. JOE was performed. No complic ation. Then, probe was removed. Patient tolerated the procedure very well. Conclusion: 1.Successful transesophageal echocardiogram. 2.Watchman device seated well in the appendage. No leak or thrombus seen. Plan: Discontinue Eliquis. /ELAYNE Voice ID: [id number] Report ID: [id number]
== END ==
LOC: EKG 08:00
PROVIDERS: ATTEND Internal Medicine
DX: I48.0 Paroxysmal atrial fibrillation (principal); I34.0 Nonrheumatic mitral (valve) insufficiency; Z98.890 Other specified postprocedural states; E78.2 Mixed hyperlipidemia; J44.9 Chronic obstructive pulmonary disease, unspecified; Z79.01 Long term (current) use of anticoagulants; Z79.82 Long term (current) use of aspirin; Z79.899 Other long term (current) drug therapy; Z86.73 Personal history of transient ischemic attack (TIA), and cerebral infarction without residual deficits; Z87.891 Personal history of nicotine dependence
CPT/HCPCS: 93312; J2250; J7040; J0461; J2310; J3010

== ENCOUNTER 2023-12-15 01:10 | Inpatient (IN) | payer OTHER ==
[2023-12-15] MEDS ORDERED: HYDRALAZINE HCL 25 MG TABLET ONE (01:27)
[2023-12-15 01:59] LABS: Absolute Eosinophils 0.6 K/uL (0-0.5); Absolute Lymphocytes (CBC) 1.9 K/uL (0.7-4.9); Absolute Monocytes 0.6 K/uL (0.1-1.3); Absolute Neutrophil 5.5 K/uL (1.8-8.0); Basophils % 0.2 % (0-1.3); Eosinophils % 7.3 % (0-4.4); Hemoglobin 9.2 g/dL (12.0-15.0); Lymphocytes % 22.3 % (15.3-44.8); MCHC 31.8 g/dL (32.0-36.0); MCV 78.6 fL (80-100); MPV 8.3 fL (7.6-11.3); Monocytes % 7.1 % (3.3-12.3); Neutrophils % 63.1 % (41.7-73.7); Nucleated Red Blood Cells % 0.1 % (0-0); Platelets 361 thou/uL (152-406); RBC Red Blood Cell Count 3.69 M/uL (3.86-4.86); Red Cell Distribution Width 16.7 % (12.1-15.2)
--- NOTE | 2023-12-15 02:26 | RAD REPORT ---
CLINICAL HISTORY: Dyspnea. COMPARISON: None. TECHNIQUE: XR CHEST 1 VIEW 12/15/2023 1:15 AM CDT FINDINGS: The heart is enlarged. There is faint bibasilar airspace disease. There are probable pleural effusion s. There is no pneumothorax. There are no acute osseous findings. IMPRESSION: Suspect bibasilar pneumonia. Electronically signed by: Luis Felipe Galeas MD 12/15/2023 02:12 AM CDT RP Due to temporary technical issues with the PACS/[employer] reporting system, reports are being torsten d by the in-house radiologist without review as a courtesy to ensure prompt reporting the interpreting radiologist is fully responsible for the content of the report. Transcribed Date/Time: 12/15/2023 2:26 AM
[2023-12-15 02:30] LABS: Albumin/Globulin Ratio 0.7 (1.1-1.8); Alkaline Phosphatase 114 U/L (45-117); Anion Gap 6.9 mEq/L (5.0-15.0); BUN Blood Urea Nitrogen 14 mg/dL (7-18); Bicarbonate 31 mEq/L (21-32); Bilirubin Total 0.4 mg/dL (0.2-1.0); Globulin 4.3 g/dL (2.3-3.5); Glomerular Filtration Rate 39 ml/min (=/>90); Glucose Level 117 mg/dL (74-106); Lipase 43 U/L (13-75); Protein, Total 7.3 g/dL (6.4-8.2); Sodium Level 140 mEq/L (136-145); Troponin High Sensitivity 23.7 pg/mL (<58.9)
[2023-12-15 02:42] LABS: ALT/SGPT < 14 U/L (13-56); AST/SGOT 18 U/L (15-37); Bilirubin Direct < 0.2 mg/dL (0-0.2); Bilirubin Indirect, Calculated 0.2 mg/dL (0.2-0.8); Potassium 3.9 mEq/L (3.5-5.1)
[2023-12-15 05:03] LABS: PT Prothrombin Time 11.6 SECONDS (9.4-12.5); PTT, Activated Partial Thromb 28.3 SECONDS (24.3-36.9); Protime INR 1.04
--- NOTE | 2023-12-15 05:09 | RAD REPORT ---
CT ABDOMEN PELVIS WITH IV CONTRAST CLINICAL INDICATION: Abdominal pain COMPARISON: None TECHNIQUE: CT images of the abdomen and pelvis obtained following administration of intravenous contr ast. Multiplanar reformats were provided. Dose-optimization techniques such as automated exposure control, iterative reconstruction, and mA and/or kV adjustment for patient size was utilized for this examination. FINDINGS: LOWER CHEST: Moderate right and small left pleural effusions with associated basilar atelectasis. No pericardial effusion. Heart is mildly prominent in size.. LIVER: An 1.1 cm focus of hypoenhancement at the left anterior hepatic lobe with a small peripheral v essel, possibly hemangioma. Several additional small subcentimeter low attenuation structures scattered in the liver are too small to characterize and possibly cysts. BILIARY: Gallbladder is partially contracted. There is a large 3.3 x 2.1 x 2.2 cm intraluminal gallst one. There is mild gallbladder wall thickening. Cystic duct is dilated, measuring up to 9 mm in diameter. Common bile duct is top normal in caliber, measuring 7 mm in diameter. PANCREAS: There is a 8 mm cystic structure in the pancreatic tail. No pancreatic ductal dilatation. SPLEEN: Unremarkable. ADRENALS: Unremarkable. KIDNEYS/URETERS: No nephrolithiasis or obstructive uropathy. No suspicious mass lesion. BOWEL/STOMACH: Sigmoid diverticulosis without acute diverticulitis. No focal bowel wall thickening or dilatation. No bowel obstruction. APPENDIX: Normal. MESENTERY/PERITONEUM: Unremarkable. RETROPERITONEUM: No adenopathy. URINARY BLADDER: Unremarkable. REPRODUCTIVE: Unremarkable. VASCULAR: No aortic aneurysm. Moderate atherosclerotic calcifications of the abdominal and pelvic vas culature. 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 ABDOMINAL/PELVIC WALL: Unremarkable. BONES: No acute findings. Moderate multilevel degenerative changes are present in the spine. Asymmetr ic right lateral marginal osteophytosis with ankylosis at L5-S1. No compression deformity, nor osteolytic or sclerotic lesion. IMPRESSION: 1. Moderate right and small left pleural effusions. 2. Large 3.3 cm gallstones in gallbladder. Mild gallbladder wall thickening and cystic duct dilatat ion. Follow-up with abdominal ultrasound or nuclear medicine HIDA scan is recommended. 3. Small 1.1 cm hypoenhancing focus at the anterior hepatic lobe, likely a hemangioma. 4. Subcentimeter pancreatic tail cyst. 5. Additional chronic findings as described. Electronically signed by: Sangeeta Quigley MD 12/15/2023 04:43 AM CDT RP Due to temporary technical issues with the PACS/[employer]i reporting system, reports are being torsten d by the in-house radiologist without review as a courtesy to ensure prompt reporting the interpreting radiologist is fully responsible for the content of the report. Transcribed Date/Time: 12/15/2023 5:09 AM
[2023-12-15] MEDS ORDERED: LABETALOL 20 MG/4ML SYRINGE IV ONE (05:25)
[2023-12-15] MEDS ORDERED: ONDANSETRON 4 MG/2 ML VIAL ONE (05:25)
[2023-12-15] MEDS ORDERED: MORPHINE 4 MG/ML SYR ONE (05:25)
[2023-12-15] MEDS ORDERED: Levofloxacin 750mg IV 750 MG/150 ML BAG IV ONE (05:26)
--- NOTE | 2023-12-15 06:38 | ER ---
Nurse's Notes [facility] Name: Paty Gil Age: 88 yrs Sex: Female : 1935 Arrival Date: 12/15/2023 Time: 01:10 Bed 6 Private MD: Diagnosis: Pneumonia;Hypoxia Presentation: 12/14 01:00 Chief complaint: EMS states: daughter toned out ems for high blood pressure and low o2, al5 patient stated to ems her stomach hurt but upon palpation did not grimace at all. Coronavirus screen: At this time, the client does not indicate any symptoms associated with coronavirus-19. Ebola Screen: No symptoms or risks identified at this time. Initial Sepsis Screen: Does the patient meet any 2 criteria? No. Patient's initial sepsis screen is negative. Does the patient have a suspected source of infection? No. Patient's initial sepsis screen is negative. Risk Assessment: Do you want to hurt yourself or someone else? Patient reports no desire to harm self or others. Onset of symptoms was December 15, 2023. 01:00 Method Of Arrival: EMS: [facility] al5 01:00 Acuity: ELEN 3 al5 Triage Assessment: 01:00 General: Appears in no apparent distress. Behavior is cooperative, patient hyperverbal. al5 Pain: Denies pain. EENT: No signs and/or symptoms were reported regarding the EENT system. Neuro: Level of Consciousness is awake, obeys commands, Oriented to at baseline. Cardiovascular: Capillary refill < 3 seconds Patient's skin is warm and dry. Respiratory: Airway is patent Respiratory effort is even, unlabored, Respiratory pattern is regular, symmetrical. GI: Abdomen is round non-distended, Abd is soft X 4 quads Abdomen is tender to palpation in right upper quadrant and left upper quadrant. : No signs and/or symptoms were reported regarding the genitourinary system. Derm: Skin is intact, Skin is pink, warm \T\ dry. normal. Musculoskeletal: No signs and/or symptoms reported regarding the musculoskeletal system. Historical: - Allergies: 01:00 No Known Allergies; al5 - PMHx: 01:00 Hypertensive disorder; Dementia; Congestive heart failure; Chronic obstructive lung al5 disease; CVA; - Immunization history:: Adult Immunizations up to date. - Infectious Disease History:: Denies. - Social history:: Smoking status: unknown. - Family history:: not pertinent. Screenin:37 [facility] ED Fall Risk Assessment (Adult) History of falling in the last 3 months, al5 including since admission No falls in past 3 months (0 pts) Confusion or Disorientation Yes (5 pts) Intoxicated or Sedated No (0 pts) Impaired Gait No (0 pts) Mobility Assist Device Used No (0 pt) Altered Elimination No (0 pt) Score/Fall Risk Level 3 or more points = High Risk Oriented to surroundings, Maintained a safe environment, Hourly rounding (assess needs \T\ fall precautionary measures) done, Apply high fall risk patient identification: yellow non skid footwear/ fall signage. Abuse screen: Denies threats or abuse. Denies injuries from another. Nutritional screening: No deficits noted. Tuberculosis screening: No symptoms or risk factors identified. Assessment: 01:00 Reassessment: see triage assessment. al5 04:40 Reassessment: No changes from previously documented assessment. Patient and/or family al5 updated on plan of care and expected duration. Pain level reassessed. patient alert and oriented to baseline, respirations even and unlabored. 05:42 Reassessment: No changes from previously documented assessment. Patient and/or family al5 updated on plan of care and expected duration. Pain level reassessed. patient alert and oriented to baseline, respirations even and unlabored. 07:35 Reassessment: Patient appears in no apparent distress at this time. Patient and/or ph family updated on plan of care and expected duration. Pain level reassessed. Pt not tolerating nasal canula, keeps pulling off, placed on blow-by oxygen via mask, resting quietly w/ eyes closed, Spo2 96%. Vital Signs: 01:00 BP 185 / 82; Pulse 87; Resp 16; Temp 97.9; Pulse Ox 84% on R/A; Weight 60.33 kg (M); al5 Height 5 ft. 7 in. ; Pain 0/10; 01:05 BP 188 / 85; Pulse 79; Resp 17; Pulse Ox 88% on R/A; al5 01:17 BP 177 / 63; Pulse 76; Resp 18; Pulse Ox 91% on 4 lpm NC; al5 01:30 BP 149 / 82; Pulse 79; Resp 18; Pulse Ox 96% on 4 lpm NC; al5 02:00 BP 171 / 77; Pulse 75; Resp 18; Pulse Ox 95% on 4 lpm NC; al5 02:30 BP 184 / 71; Pulse 84; Resp 20; Pulse Ox 96% on 4 lpm NC; al5 03:00 BP 209 / 75; Pulse 89; Resp 19; Pulse Ox 92% on 4 lpm NC; al5 04:00 BP 163 / 93; Pulse 90; Resp 19; Pulse Ox 87% on 4 lpm NC; al5 04:30 BP 174 / 81; Pulse 93; Resp 19; Pulse Ox 87% on 4 lpm NC; al5 05:00 BP 211 / 116; Pulse 113; Resp 24; Pulse Ox 89% on 4 lpm NC; al5 05:30 BP 149 / 66; Pulse 82; Resp 16; Pulse Ox 88% on 4 lpm NC; al5 06:00 BP 136 / 67; Pulse 73; Resp 15; Pulse Ox 94% on 4 lpm NC; al5 07:37 BP 139 / 65; Pulse 70; Resp 18; Pulse Ox 95% on blow by o2; ph 01:00 Body Mass Index 20.83 (60.33 kg, 170.18 cm) al5 01:00 Pain Scale: Adult al5 ED Course: 01:00 Arm band placed on right wrist. Patient placed in the treatment room, on a stretcher. al5 Patient has correct armband on for positive identification. Bed in low position. Call light in reach. Side rails up X2. Provided Education on: plan of care. 01:13 Patient arrived in ED. kmf 01:13 Juan Antonio Painter MD is Attending Physician. rt 01:25 Inserted saline lock: 22 gauge in left wrist, using aseptic technique. Blood collected. ha1 Flushed with 10 mL NS. 01:32 Peggy Tamayo, KACI is Primary Nurse. al5 01:34 Triage completed. al5 01:35 EKG done, by sterile instrument technician. af3 01:38 No provider procedures requiring assistance completed. al5 01:45 XRAY Chest (1 view) In Process Unspecified. EDMS 03:56 CT Abd/Pelvis - IV Contrast Only In Process Unspecified. EDMS 05:33 US Abdomen Limited In Process Unspecified. EDMS 06:37 Julian Heath MD is Hospitalizing Provider. rt 06:40 IV discontinued, intact, bleeding controlled, No redness/swelling at site. Pressure al5 dressing applied, patient self removed iv. new iv established. 06:41 Inserted saline lock: 22 gauge in right forearm, using aseptic technique. Flushed with al5 10 mL NS. Administered Medications: 01:30 Drug: HydrALAZINE PO 25 mg PO once Route: PO; ha1 04:40 Follow up: Response: No adverse reaction; Blood pressure is lowered al5 05:41 Drug: LevaQUIN IVPB 750 mg IVPB once Route: IVPB; Site: left forearm; al5 07:15 Follow up: Response: No adverse reaction; IV Status: Completed infusion ph 05:41 Drug: morphine IVP or IV 4 mg IVP once over 4 mins Route: IVP; Infused Over: 4 mins; al5 Site: left forearm; 06:12 Follow up: Response: No adverse reaction; Marked relief of symptoms al5 05:41 Drug: Labetalol IV 10 mg IV at 10 calculated rate once Route: IV; Rate: 10 calculated al5 rate; Site: left forearm; 06:12 Follow up: Response: No adverse reaction; Blood pressure is lowered; IV Status: al5 Completed infusion; IV Intake: 2ml 05:41 Drug: Ondansetron IVP 4 mg IVP once; over 2 minutes Route: IVP; Site: left forearm; al5 06:12 Follow up: Response: No adverse reaction; Nausea is decreased al5 Medication: 01:37 VIS not applicable for this client. al5 Intake: 06:12 IV: 2ml; Total: 2ml. al5 Outcome: 06:38 Decision to Hospitalize by Provider. rt 09:41 Patient left the ED. ph Signatures: Dispatcher [employer] EDOR Beatriz Gtz RN RN ph Ayala, Heidy, RN RN ha1 Juan Antonio Painter MD MD rt Molly Vicente Peggy Tamayo RN RN al5 Emily Lock3 Corrections: (The following items were deleted from the chart) 01:41 01:32 Chief complaint: EMS states: daughter toned out ems for high blood pressure and al5 low o2, patient stated to ems her stomach hurt but upon palpation did not grimace at all. al5 01:41 01:32 Coronavirus screen: At this time, the client does not indicate any symptoms al5 associated with coronavirus-19. 01:32 Ebola Screen: No symptoms or risks identified at this time. al5 :32 Initial Sepsis Screen: Does the patient meet any 2 criteria? No. Patient's al5 initial sepsis screen is negative. Does the patient have a suspected source of infection? No. Patient's initial sepsis screen is negative. :32 Risk Assessment: Do you want to hurt yourself or someone else? Patient reports no al5 desire to harm self or others. :32 Onset of symptoms was December 15, 20235 01:32 Method Of Arrival: EMS: [facility] 5 01:32 BP 185 / 82; Pulse 87bpm; Resp 16bpm; Pulse Ox 84% RA; Temp 97.9F; 60.33 kg al5 Measured; Height 5 ft. 7 in.; BMI: 20.8; Pain 0/10, Adult; 01:32 Acuity: ELEN 3 al5 01:34 Allergies: No Known Allergies; 01:34 Home Meds: metoprolol tartrate 25 mg Oral tablet 1 tab 2 times per day al5 [Inactive]; 01:34 Home Meds: aspirin 81 mg Oral tablet,chewable daily [Inactive]; al5 01:34 PMHx: CHF; al5 01:34 PMHx: COPD; al5 01:34 PMHx: CVA; al5 01:34 PMHx: Dementia; al5 01:34 PMHx: Hypertensive disorder; 5 01:34 PSHx: Carotid endarterectomy; 01:34 Immunization history: Adult Immunizations up to date, 5 01:34 Infectious Disease History: Denies. 5 01:34 Social history: Smoking status: unknown 5 01:34 General: Appears in no apparent distress. Behavior is cooperative, patient al5 hyperverbal. al5 01:34 Pain: Denies pain. al5 5 01:34 EENT: No signs and/or symptoms were reported regarding the EENT system. al5 01:34 Neuro: Level of Consciousness is awake, obeys commands, Oriented to at baseline. al5 01:34 Cardiovascular: Capillary refill < 3 seconds Patient's skin is warm and dry. al5 al5 01:34 Respiratory: Airway is patent Respiratory effort is even, unlabored, Respiratory al5 pattern is regular, symmetrical, al5 01:34 GI: Abdomen is round non-distended, Abd is soft X 4 quads Abdomen is tender to al5 palpation in right upper quadrant and left upper quadrant al5 01:34 : No signs and/or symptoms were reported regarding the genitourinary system. al5al5 01:34 Derm: Skin is intact, Skin is pink, warm \T\ dry. normal, al5 01:34 Musculoskeletal: No signs and/or symptoms reported regarding the musculoskeletal al5 system. al5 01:35 BP 177 / 63; Pulse 76bpm; Resp 16bpm; Pulse Ox 94% 4 lpm Nasal Cannula; al5 46 01:36 Arm band placed on right wrist. Patient placed in the treatment room, on a al5 stretcher, 01:38 Patient has correct armband on for positive identification. Bed in low position. al5 Call light in reach. Side rails up X2. al5 01:38 Provided Education on: plan of care. al5 01:37 Reassessment: see triage assessment al5 al5 06:11 05:42 Reassessment: No changes from previously documented assessment. Patient and/or al5 family updated on plan of care and expected duration. Pain level reassessed. part alert and oriented to baseline, respirations even and unlabored. al5
--- NOTE | 2023-12-15 06:38 | EDPHYS ---
Physician Documentation [facility] Name: Paty Gil Age: 88 yrs Sex: Female : 1935 Arrival Date: 12/15/2023 Time: 01:10 Bed 6 Private MD: ED Physician Juan Antonio Painter HPI: 12/14 04:31 This 88 yrs old Female presents to ER via EMS with complaints of High Blood Pressure. rt 04:31 Patient presents to the ED with reported dyspnea and high blood pressure at about 2 rt times. Patient's room air saturations reportedly in the 60s per the patient's daughter. EMS reported that was 86, correcting with supplemental O2. Patient also complained of abdominal pain but none currently. Denies other acute complaints at this time, symptoms are moderate in severity, no other aggravating or alleviating factors.. Historical: - Allergies: 01:00 No Known Allergies; al5 - PMHx: 01:00 Hypertensive disorder; Dementia; Congestive heart failure; Chronic obstructive lung al5 disease; CVA; - Immunization history:: Adult Immunizations up to date. - Infectious Disease History:: Denies. - Social history:: Smoking status: unknown. - Family history:: not pertinent. ROS: 04:31 Constitutional: Negative for fever, chills, and weight loss, Cardiovascular: Negative rt for chest pain, palpitations, and edema, MS/Extremity: Negative for injury and deformity, Skin: Negative for injury, rash, and discoloration, 04:31 Respiratory: Positive for shortness of breath, 04:31 Abdomen/GI: Positive for abdominal pain, Exam: 04:31 Constitutional: This is a well developed, well nourished patient who is awake, alert, rt and in no acute distress. Head/Face: Normocephalic, atraumatic. Chest/axilla: Normal chest wall appearance and motion. Nontender with no deformity. No lesions are appreciated. Cardiovascular: Regular rate and rhythm with a normal S1 and S2. No gallops, murmurs, or rubs. Normal PMI, no JVD. No pulse deficits. Respiratory: Lungs have equal breath sounds bilaterally, clear to auscultation and percussion. No rales, rhonchi or wheezes noted. No increased work of breathing, no retractions or nasal flaring. Abdomen/GI: Soft, non-tender, with normal bowel sounds. No distension or tympany. No guarding or rebound. No evidence of tenderness throughout. Skin: Warm, dry with normal turgor. Normal color with no rashes, no lesions, and no evidence of cellulitis. MS/ Extremity: Pulses equal, no cyanosis. Neurovascular intact. Full, normal range of motion. Neuro: Awake and alert, GCS 15, oriented to person, place, time, and situation. Cranial nerves II-XII grossly intact. Motor strength 5/5 in all extremities. Sensory grossly intact. Cerebellar exam normal. Normal gait. 04:31 ECG was reviewed by the Attending Physician. Vital Signs: 01:00 BP 185 / 82; Pulse 87; Resp 16; Temp 97.9; Pulse Ox 84% on R/A; Weight 60.33 kg (M); al5 Height 5 ft. 7 in. ; Pain 0/10; 01:05 BP 188 / 85; Pulse 79; Resp 17; Pulse Ox 88% on R/A; al5 01:17 BP 177 / 63; Pulse 76; Resp 18; Pulse Ox 91% on 4 lpm NC; al5 01:30 BP 149 / 82; Pulse 79; Resp 18; Pulse Ox 96% on 4 lpm NC; al5 02:00 BP 171 / 77; Pulse 75; Resp 18; Pulse Ox 95% on 4 lpm NC; al5 02:30 BP 184 / 71; Pulse 84; Resp 20; Pulse Ox 96% on 4 lpm NC; al5 03:00 BP 209 / 75; Pulse 89; Resp 19; Pulse Ox 92% on 4 lpm NC; al5 04:00 BP 163 / 93; Pulse 90; Resp 19; Pulse Ox 87% on 4 lpm NC; al5 04:30 BP 174 / 81; Pulse 93; Resp 19; Pulse Ox 87% on 4 lpm NC; al5 05:00 BP 211 / 116; Pulse 113; Resp 24; Pulse Ox 89% on 4 lpm NC; al5 05:30 BP 149 / 66; Pulse 82; Resp 16; Pulse Ox 88% on 4 lpm NC; al5 06:00 BP 136 / 67; Pulse 73; Resp 15; Pulse Ox 94% on 4 lpm NC; al5 07:37 BP 139 / 65; Pulse 70; Resp 18; Pulse Ox 95% on blow by o2; ph 01:00 Body Mass Index 20.83 (60.33 kg, 170.18 cm) al5 01:00 Pain Scale: Adult al5 MDM: 01:13 Medical Screening Exam initiated rt 07:01 Differential diagnosis: Hypertension, CHF, pneumonia. Data reviewed: vital signs, rt nurses notes, lab test result(s), EKG, radiologic studies. Consideration of Admission/Observation Patient was admitted/placed on observation. Management of patient was discussed with the following: Hospitalist: Agrees to admit. I considered the following discharge prescriptions or medication management in the emergency department Medications were administered in the Emergency Department. See MAR. 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 Care significantly affected by the following chronic conditions: Hypertension. Counseling: I had a detailed discussion with the patient and/or guardian regarding the historical points, exam findings, and any diagnostic results supporting the discharge/admit diagnosis, the presence of at least one elevated blood pressure reading (>120/80) during this emergency department visit, lab results, radiology results, the need for further work-up and treatment in the hospital. Response to treatment: the patient's symptoms have mildly improved after treatment. 12/14 03:08 Order name: Blood Culture Adult (2) rt 12/14 01:15 Order name: Basic Metabolic Panel; Complete Time: 02:42 rt 12/14 01:15 Order name: CBC with Diff; Complete Time: 02:34 rt 12/14 01:15 Order name: LFT's; Complete Time: 02:42 rt 12/14 01:15 Order name: Troponin HS; Complete Time: 02:42 rt 12/14 01:15 Order name: Lipase; Complete Time: 02:42 rt 12/14 03:08 Order name: Lactate w/ 2H reflex if indic. rt 12/14 03:08 Order name: Protime (+inr) rt 12/14 03:08 Order name: Ptt, Activated rt 12/14 03:42 Order name: Lactate w/ 2H reflex if indic.; Complete Time: 06:45 EDMS 12/14 03:42 Order name: Protime (+INR); Complete Time: 06:45 EDMS 12/14 03:42 Order name: PTT, Activated Partial Thromb; Complete Time: 06:45 EDMS 12/14 08:02 Order name: Urinalysis w/ reflexes EDMS 12/14 08:02 Order name: CBC with Automated Diff EDMS 12/14 08:02 Order name: CBC with Automated Diff EDMS 12/14 08:02 Order name: CBC with Automated Diff EDMS 12/14 08:02 Order name: CBC with Automated Diff EDMS 12/14 08:02 Order name: Comprehensive Metabolic Panel EDMS 12/14 08:02 Order name: Comprehensive Metabolic Panel EDMS 12/14 08:02 Order name: Comprehensive Metabolic Panel EDMS 12/14 08:02 Order name: Comprehensive Metabolic Panel EDMS 12/14 08:02 Order name: Lipid Profile EDMS 12/14 08:02 Order name: Lipid Profile EDMS 12/14 08:02 Order name: Magnesium EDMS 12/14 08:02 Order name: Magnesium EDMS 12/14 08:02 Order name: Magnesium EDMS 12/14 08:02 Order name: Magnesium EDMS 12/14 08:02 Order name: Phosphorus EDMS 12/14 08:02 Order name: Phosphorus EDMS 12/14 08:02 Order name: Phosphorus EDMS 12/14 08:02 Order name: Phosphorus EDMS 12/14 08:02 Order name: Urine Culture EDMS 12/14 01:15 Order name: XRAY Chest (1 view); Complete Time: 02:34 rt 12/14 01:15 Order name: CT Abd/Pelvis - IV Contrast Only rt 12/14 04:48 Order name: US Abdomen Limited; Complete Time: 06:45 rt 12/14 01:15 Order name: Cardiac monitoring; Complete Time: 05:26 rt 12/14 01:15 Order name: EKG - Nurse/Tech; Complete Time: 01:35 rt 12/14 01:15 Order name: IV Saline Lock; Complete Time: 01:25 rt 12/14 01:15 Order name: Labs collected and sent; Complete Time: 01:25 rt 12/14 01:15 Order name: O2 Per Protocol; Complete Time: 01:25 rt 12/14 01:15 Order name: O2 Sat Monitoring; Complete Time: 01:25 rt 12/14 03:08 Order name: IV Saline Lock - Large Bore; Complete Time: 05:26 rt 12/14 03:08 Order name: Vital Signs; Complete Time: 05:26 rt EC:31 Rate is 83 beats/min. Rhythm is regular, Normal Sinus Rhythm with Occasional PVCs. QRS rt [place] is Normal. OK interval is normal. QRS interval is normal. No Q waves. T waves are Normal. No ST changes noted. Interpreted by me. Administered Medications: 01:30 Drug: HydrALAZINE PO 25 mg PO once Route: PO; ha1 04:40 Follow up: Response: No adverse reaction; Blood pressure is lowered al5 05:41 Drug: LevaQUIN IVPB 750 mg IVPB once Route: IVPB; Site: left forearm; al5 07:15 Follow up: Response: No adverse reaction; IV Status: Completed infusion ph 05:41 Drug: morphine IVP or IV 4 mg IVP once over 4 mins Route: IVP; Infused Over: 4 mins; al5 Site: left forearm; 06:12 Follow up: Response: No adverse reaction; Marked relief of symptoms al5 05:41 Drug: Labetalol IV 10 mg IV at 10 calculated rate once Route: IV; Rate: 10 calculated al5 rate; Site: left forearm; 06:12 Follow up: Response: No adverse reaction; Blood pressure is lowered; IV Status: al5 Completed infusion; IV Intake: 2ml 05:41 Drug: Ondansetron IVP 4 mg IVP once; over 2 minutes Route: IVP; Site: left forearm; al5 06:12 Follow up: Response: No adverse reaction; Nausea is decreased al5 Disposition Summary: 12/15/23 06:38 Hospitalization Ordered Notes: Hospitalization Status: Inpatient Admission rt Provider: Julian Heath rt Location: Telemetry/[facility] [place] (Inpatient) rt Condition: Fair rt Problem: new rt Symptoms: have improved rt Bed/Room Type: Standard rt Room Assignment: 206(12/15/23 08:29) eb Diagnosis - Pneumonia rt - Hypoxia rt Forms: - Medication Reconciliation Form rt - SBAR form rt - Leadership Thank You Letter rt Critical care time excluding procedures: 07:01 Critical care time: Bedside Care: 30 minutes, Consultation: 5 minutes. Total time: 35 rt minutes Signatures: Dispatcher [employer] EDMS Veronica Castro Heidy, RN RN ha1 Juan Antonio Painter MD MD rt Peggy Tamayo RN RN al5 Beatriz Gtz RN ph Corrections: (The following items were deleted from the chart) 01:15 01:15 BASIC METABOLIC PANEL+C.LAB.BRZ ordered. EDMS EDMS 01:15 01:15 CBC+H.LAB.BRZ ordered. EDMS EDMS 01:15 01:15 HEPATIC FUNCTION+C.LAB.BRZ ordered. EDMS EDMS 01:15 01:15 Troponin High Sensitivity+C.LAB.BRZ ordered. EDMS EDMS 01:15 01:15 LIPASE+C.LAB.BRZ ordered. EDMS EDMS 01:15 01:15 Chest Single View+RAD.RAD.BRZ ordered. EDMS EDMS 01:16 01:16 Abdomen Pelvis W Con+CT.RAD.BRZ ordered. EDMS EDMS :43 01:34 Allergies: No Known Allergies; ma5 5 01:34 Home Meds: metoprolol tartrate 25 mg Oral tablet 1 tab 2 times per day al5 [Inactive]; 5 01:34 Home Meds: aspirin 81 mg Oral tablet,chewable daily [Inactive]; ma5 5 01:34 PMHx: CHF; ma5 5 01:34 PMHx: COPD; ma5 5 01:34 PMHx: CVA; ma5 5 01:34 PMHx: Dementia; ma5 5 01:34 PMHx: Hypertensive disorder; ma5 5 01:34 PSHx: Carotid endarterectomy; ma5 5 01:34 Immunization history: Adult Immunizations up to date, [facility] 5 01:34 Infectious Disease History: Denies. ma5 5 01:34 Social history: Smoking status: unknown [facility] 08:29 06:38 rt eb
--- NOTE | 2023-12-15 06:39 | RAD REPORT ---
EXAM: Ultrasound abdomen limited CLINICAL DATA: 88 years Female ruq TECHNICAL DATA: Limited sonographic imaging of the right upper quadrant was performed on 12/15/2023 at 5: 19 AM. Imag ing was predominantly performed to evaluate the gallbladder. Comparison: CT abdomen and pelvis performed on 12/15/2023 at 3:29 AM. FINDINGS: The gallbladder is partially distended and contains a large shadowing intraluminal echo consistent wi th a gallstone. This is located in the gallbladder fundus. This corresponds to the abnormality noted on the prior CT scan. The gallbladder wall measures approximately 2.5 mm in diameter. There is no definite pericholecystic fluid. The common bile duct is mildly dilated and measures approximately 8 mm in diameter. The portal vein is patent. IMPRESSION: Cholelithiasis with associated mild biliary ductal dilatation. No definite gallbladder wall thickenin g or pericholecystic fluid is appreciated on this examination. If there is clinical concern for acute cholecystitis, recommend HIDA scan. Electronically signed by: Annie Carty DO 12/15/2023 06:26 AM CDT Due to temporary technical issues with the [employer]ACS[employer] reporting system, reports are being sign ed by the in-house radiologist without review as a courtesy to ensure prompt reporting the interpreting rad iologist is fully responsible for the content of the report. Transcribed Date/Time: 12/15/2023 6:39 AM
--- NOTE | 2023-12-15 07:51 | P.HP ---
Certification for Inpatient Patient admitted to: Inpatient With expected LOS: >2 Midnights Practitioner: I am a practitioner with admitting privileges, knowledge of patient current condition, hospital course, and medical plan of care. Services: Services provided to patient in accordance with Admission requirements found in Title 42 Section 412.3 of the Code of Federal Regulations Patient History Date of Service: 12/15/23 Allergies No Known Allergies Allergy (Verified 12/20/21 12:47) Home Medications: Apixaban [Eliquis] 5 mg PO BID #60 12/26/21 Aspirin Chewable [Aspirin Chewable*] 81 mg PO DAILY tab.chew 12/26/21 Atorvastatin Calcium [Lipitor] 80 mg PO BEDTIME #30 tab 12/26/21 Cranberry Fruit Extract 400 mg PO BID cap 12/26/21 Cyanocobalamin [Vitamin B-12*] 1,000 mcg PO DAILY tab 12/26/21 Docusate/Senna [Senokot-S*] 2 tab PO BEDTIME PRN tab 12/26/21 Famotidine [Pepcid*] 20 mg PO DAILY #30 tab 12/26/21 Melatonin 5 mg PO BEDTIME PRN PRN 12/26/21 Metoprolol Tartrate [Lopressor*] 25 mg PO BID #60 tab 12/26/21 Quetiapine [Seroquel*] 25 mg PO BEDTIME PRN #30 tab 12/26/21 - Past Medical/Surgical History Diabetic: No -: CHF -: HTN -: CHF -: COPD -: STROKE -: pt has one living child - Family History Sister -: Heart disease - Social History Alcohol use: No CD- Drugs: No Caffeine use: No Physical Examination - Physical Exam General: Alert, Oriented x1, Disheveled, Demented, Obese HEENT: Atraumatic, Normocephalic Neck: Supple Respiratory: Diminished Cardiovascular: No edema, Regular rate/rhythm Capillary refill: <2 Seconds Gastrointestinal: Tenderness (RUQ) Musculoskeletal: No clubbing Integumentary: Other (pallor) Neurological: Abnormal speech, Abnormal strength, Abnormal affect, Dementia Lymphatics: No axilla or inguinal lymphadenopathy External genitalia: Deferred Rectal: Deferred - Studies Laboratory Data (last 24 hrs) 12/15/23 12/15/23 12/15/23 04:26 01:28 01:28 WBC 8.70 Hgb 9.2 L Hct 29.0 L Plt Count 361 PT 11.6 INR 1.04 APTT 28.3 Sodium 140 Potassium 3.9 BUN 14 Creatinine 1.33 H Glucose 117 H Total Bilirubin 0.4 AST 18 ALT < 14 Alkaline Phosphatase 114 Lipase 43 Microbiology Data (last 24 hrs): 12/15/23 04:26 Blood - Blood Anaerobic Blood Culture - Final 12/15/23 04:10 Blood - Blood Anaerobic Blood Culture - Final Assessment and Plan - Advance Directives Does patient have a Living Will: No Does patient have a Durable POA for Healthcare: Yes
[2023-12-15] MEDS: ENOXAPARIN 30 MG/0.3 ML SQ SCH (09:00)
[2023-12-15 10:22] VITALS: BMI 20.8
--- NOTE | 2023-12-15 10:26 | P.HP ---
Certification for Inpatient Patient admitted to: Inpatient With expected LOS: >2 Midnights <Barbara Millancurtis Carr - Last Filed: 12/15/23 10:44> Patient History Date of Service: 12/15/23 Reason for admission: Respiratory failure CHF/pneumonia. Cholelithiasis/abd pain History of Present Illness: Ms. Gil is an 88-year-old female with a past medical history of hypertension, CHF, COPD, CVA with dementia who lives with her daughter. Her daughter called EMS secondary to noting high blood pressure and low oxygen saturation with the patient complaining of abdominal pain. Denies fever, vomiting, trauma. On evaluation in the emergency department she was noted to be hypertensive at 185/82 with a heart rate of 87 and oxygen saturation of 84% on room air. She was placed on oxygen and given hydralazine p.o. then labetalol 10 mg IV. Her abdominal pain was treated with morphine 4 mg IV and Zofran 4 mg IV. Her symptoms were much improved after imaging she was given Levaquin 750 mg IV piggyback and the hospitalist program was asked to admit her for respiratory failure secondary to CHF/pneumonia and abdominal pain. - Past Medical/Surgical History Has patient received pneumonia vaccine in the past: Yes Diabetic: No -: CHF -: HTN -: CVA -: COPD -: dementia -: pt has one living child -: Carotid endarterectomy Psychosocial/ Personal History: Lives with her Daughter - Family History Sister -: Heart disease - Social History Smoking Status: Never smoker Alcohol use: No CD- Drugs: No Caffeine use: No Place of Residence: Home <Britta Millan - Last Filed: 12/15/23 10:44> Date of Service: 12/15/23 <Briana Jean - Last Filed: 12/15/23 17:50> Allergies No Known Allergies Allergy (Verified 12/20/21 12:47) Home Medications: Apixaban [Eliquis] 5 mg PO BID #60 12/26/21 Aspirin Chewable [Aspirin Chewable*] 81 mg PO DAILY tab.chew 12/26/21 Atorvastatin Calcium [Lipitor] 80 mg PO BEDTIME #30 tab 12/26/21 Cranberry Fruit Extract 400 mg PO BID cap 12/26/21 Cyanocobalamin [Vitamin B-12*] 1,000 mcg PO DAILY tab 12/26/21 Docusate/Senna [Senokot-S*] 2 tab PO BEDTIME PRN tab 12/26/21 Famotidine [Pepcid*] 20 mg PO DAILY #30 tab 12/26/21 Melatonin 5 mg PO BEDTIME PRN PRN 12/26/21 Metoprolol Tartrate [Lopressor*] 25 mg PO BID #60 tab 12/26/21 Quetiapine [Seroquel*] 25 mg PO BEDTIME PRN #30 tab 12/26/21 Review of Systems 10-point ROS is otherwise unremarkable General: As per HPI Respiratory: Shortness of Breath, As per HPI Cardiovascular: Unremarkable Gastrointestinal: Abdominal Pain, As per HPI Genitourinary: Unremarkable Musculoskeletal: Unremarkable Integumentary: Unremarkable Neurological: Confusion (at baseline) <Britta Millan - Last Filed: 12/15/23 10:44> Physical Examination - Vital Signs Blood Pressure: 151/62 Pulse: 72 Respirations: 22 Pulse Ox (%): 92 (86-94) - Physical Exam General: Alert, Oriented x1, Disheveled, Demented, Obese HEENT: Atraumatic, Normocephalic Neck: Supple Respiratory: Crackles/rales, Other (pulls oxygen off, Spo2 80s) Cardiovascular: Regular rate/rhythm Capillary refill: <2 Seconds Gastrointestinal: Distended, Tenderness (upper right and midline) Musculoskeletal: No clubbing Integumentary: Other (pallor) Neurological: Abnormal speech, Abnormal strength, Abnormal affect, Dementia Lymphatics: No axilla or inguinal lymphadenopathy External genitalia: Deferred Rectal: Deferred - Studies Laboratory Data (last 24 hrs) 12/15/23 12/15/23 12/15/23 04:26 01:28 01:28 WBC 8.70 Hgb 9.2 L Hct 29.0 L Plt Count 361 PT 11.6 INR 1.04 APTT 28.3 Sodium 140 Potassium 3.9 BUN 14 Creatinine 1.33 H Glucose 117 H Total Bilirubin 0.4 AST 18 ALT < 14 Alkaline Phosphatase 114 Lipase 43 Microbiology Data (last 24 hrs): 12/15/23 04:26 Blood - Blood Anaerobic Blood Culture - Final 12/15/23 04:10 Blood - Blood Anaerobic Blood Culture - Final <Britta Millan - Last Filed: 12/15/23 10:44> - Studies Laboratory Data (last 24 hrs) 12/15/23 12/15/23 12/15/23 04:26 01:28 01:28 WBC 8.70 Hgb 9.2 L Hct 29.0 L Plt Count 361 PT 11.6 INR 1.04 APTT 28.3 Sodium 140 Potassium 3.9 BUN 14 Creatinine 1.33 H Glucose 117 H Total Bilirubin 0.4 AST 18 ALT < 14 Alkaline Phosphatase 114 Lipase 43 Microbiology Data (last 24 hrs): 12/15/23 04:26 Blood - Blood Anaerobic Blood Culture - Final 12/15/23 04:10 Blood - Blood Anaerobic Blood Culture - Final <Rosa Jeancristian Tg - Last Filed: 12/15/23 17:50> Assessment and Plan - Plan Respiratory failure secondary to pneumonia, history of COPD cxr in ED Nebs, steroids, and antibiotics O2 per protocol Repeat chest x-ray Pulse ox every 4h Abdominal pain CT abdomen pelvis in ED showed: "Moderate right and small left pleural effusions. Large 3.3 cm gallstone in gallbladder. Mild gallbladder wall thickening and cystic duct dilatation. Small 1.1 cm hypoechoic enhancing focus at the anterior hepatic lobe, likely a hemangioma. Subcentimeter pancreatic tail cyst. Additional chronic findings."" Gallbladder ultrasound showed: "The gallbladder is partially distended and contains a large shadowing intraluminal echo consistent with a gallstone. This is located in the gallbladder fundus. This corresponds to the abnormality noted on the prior CT scan. The gallbladder wall measures approximately 2.5 mm in diameter. There is no definite pericholecystic fluid. The common bile duct is mildly dilated and measures approximately 8 mm in diameter. The portal vein is patent.". LFTs negative Serial abdominal exams LFT reevaluate Lipase in a.m. Hypertension with CHF Given hydralazine and labetalol in ED HERNANDEZ inhibitor/ARB Beta-jong gentle diuresis Strict Is & Os Daily weight Iron deficiency anemia Current H&H 9.2 and 29 Iron and ferritin levels Monitor H&H Status post CVA with dementia Bedside swallow screen prior to clear liquids, advance as needed Skin protection measures Fall precautions Frequent reorienting Daughter is chief historian and will be back per ED MD VTE/GI prophylaxis Will need home med reconciliation - Advance Directives Does patient have a Living Will: No Does patient have a Durable POA for Healthcare: Yes <MillanBritta Bruno - Last Filed: 12/15/23 10:44> Date of Service: 12/15/23 Patient was seen and examined. Events of the last 24 hours have been noted. Spoke with with BOBBY regarding patient's clinical picture after evaluating and examining the patient independently. I performed a substantial part of the MDM during this patient's care today. I personally made or approved the documented management plan and acknowledge its risk of complications. I agree with the findings and documentation provided in the BOBBY's notes. Patient with pneumonia and we have started patient on antibiotics. Will reassess patient in the morning. Continue with nebs as needed and reassess pulmonary status in the morning. If improving then anticipate discharge home. <Briana Jean - Last Filed: 12/15/23 17:50>
[2023-12-15] MEDS: PIPER TAZO 3.375 GM in NA CHLORIDE 0.9% 100 ML IV SCH (12:50)
[2023-12-15 13:16] LABS: Sqamous Epithelial <5 /HPF (None Seen); Urine Bacteria None Seen /HPF (<20); Urine Bilirubin NEGATIVE (Negative); Urine Blood Negative (Negative); Urine Clarity Clear (Clear); Urine Color Light-Yellow (Yellow); Urine Culture Reflex Order NOT NEEDED; Urine Glucose NEGATIVE (Negative); Urine Ketones NEGATIVE (Negative); Urine Microscopic Reflex YN ORDER UMIC; Urine Mucus Slight /HPF (None Seen); Urine Nitrite NEGATIVE (Negative); Urine Protein 1+ (Negative); Urine RBC <5 /HPF (None Seen); Urine Urobilinogen Normal (Normal); Urine WBC <5 /HPF (<5)
[2023-12-15 13:18] LABS: Specific Gravity > 1.030 (1.005-1.030)
[2023-12-15] MEDS: IPRATROPIUM BROM 0.5MG/2.5ML NEB SCH (14:01)
[2023-12-15] MEDS: ALBUTEROL 2.5 MG/3 ML NEB SOL NEB SCH (14:01)
[2023-12-15] MEDS: CYANOCOBALAMIN 1,000 MCG TAB PO SCH (16:28)
[2023-12-15] MEDS: METOPROLOL TAR 25 MG TAB PO SCH (16:28)
[2023-12-15] MEDS: ROSUVASTATIN 10 MG TAB PO SCH (21:36)
[2023-12-15] MEDS: APIXABAN 5 MG TABLET PO SCH (21:37)
[2023-12-15] MEDS: QUETIAPINE 25 MG TAB PO SCH (21:37)
[2023-12-16 07:15] LABS: Absolute Basophils 0.1 K/uL (0-0.5); Absolute Eosinophils 0.9 K/uL (0-0.5); Absolute Monocytes 0.6 K/uL (0.1-1.3); Absolute Neutrophil 3.9 K/uL (1.8-8.0); Basophils % 1.4 % (0-1.3); Eosinophils % 11.5 % (0-4.4); Hematocrit 27.9 % (36.0-45.0); Hemoglobin 8.8 g/dL (12.0-15.0); Lymphocytes % 27.1 % (15.3-44.8); MCH 24.9 pg (27.0-35.0); MCHC 31.3 g/dL (32.0-36.0); MCV 79.3 fL (80-100); MPV 7.8 fL (7.6-11.3); Monocytes % 7.7 % (3.3-12.3); Neutrophils % 52.3 % (41.7-73.7); Platelets 304 thou/uL (152-406); RBC Red Blood Cell Count 3.52 M/uL (3.86-4.86); Red Cell Distribution Width 17.3 % (12.1-15.2)
[2023-12-16 07:33] LABS: ALT/SGPT < 14 U/L (13-56); AST/SGOT 15 U/L (15-37); Albumin 2.7 g/dL (3.4-5.0); Albumin/Globulin Ratio 0.7 (1.1-1.8); Alkaline Phosphatase 94 U/L (45-117); Anion Gap 6.4 mEq/L (5.0-15.0); BUN Blood Urea Nitrogen 14 mg/dL (7-18); Bicarbonate 30 mEq/L (21-32); Bilirubin Total 0.5 mg/dL (0.2-1.0); Globulin 3.8 g/dL (2.3-3.5); Glomerular Filtration Rate 36 ml/min (=/>90); Glucose Level 83 mg/dL (74-106); HDL Cholesterol 55 mg/dL (40-60); LDL Cholesterol, Calculated 25 mg/dL (<130); LDL Cholesterol,Calc NonReport 25; Magnesium 2.5 mg/dL (1.6-2.4); NT PRO-BNP 1508 pg/mL (<450); Potassium 4.4 mEq/L (3.5-5.1); Protein, Total 6.5 g/dL (6.4-8.2); Sodium Level 139 mEq/L (136-145)
[2023-12-16 07:53] LABS: Ferritin 13.2 ng/mL (8-252)
--- NOTE | 2023-12-16 09:08 | RAD REPORT ---
EXAMINATION: CT CHEST WITHOUT CONTRAST CLINICAL INDICATION: pneumonia vs effusion TECHNIQUE: Routine CT scan of the chest without intravenous contrast. One or more of the following do se reduction techniques were used: Automated exposure control, adjustment of the mA and/or kV according to patient size, and/or iterative reconstruction. Unless otherwise specified, incidental fi ndings do not require dedicated imaging follow-up. COMPARISON: 12/15/2023 FINDINGS: LOWER NECK: Visualized thyroid gland and soft tissues are normal. LUNGS: Mild interstitial prominence with mild atelectasis in both lung bases. This is suspicious for mild interstitial edema. PLEURA: Small left and [id number] right pleural effusion is noted. MEDIASTINUM AND LYMPH NODES: No mediastinal mass or fluid collection. Normal size mediastinal, hilar, and axillary lymph nodes. Aortic atherosclerosis. OSSEOUS STRUCTURES AND CHEST WALL: Mild thoracic spondylosis. UPPER ABDOMEN: No significant abnormalities. IMPRESSION: Mild interstitial pulmonary edema is suspected bilateral pleural effusions, larger on the right. This may indicate CHF or volume overload. Examination limited by lack of IV contrast.
--- NOTE | 2023-12-16 13:13 | P.PN ---
Date of Service: 12/16/23 Subjective better, less cough Review of Systems 10-point ROS is otherwise unremarkable General: As per HPI Respiratory: Shortness of Breath, As per HPI Cardiovascular: Unremarkable Gastrointestinal: Abdominal Pain, As per HPI Genitourinary: Unremarkable Musculoskeletal: Unremarkable Integumentary: Unremarkable Neurological: Confusion (at baseline) Physical Examination - Vital Signs reviewed - Physical Exam General: Alert, Oriented x1, Disheveled, Demented, Obese HEENT: Atraumatic, Normocephalic Neck: Supple Respiratory: Crackles/rales, Other (pulls oxygen off, Spo2 80s) Cardiovascular: Regular rate/rhythm Capillary refill: <2 Seconds Gastrointestinal: Distended, BS+ x 4 quads Musculoskeletal: No clubbing Integumentary: Other (pallor) Neurological: Abnormal speech, Abnormal strength, Abnormal affect, Dementia Lymphatics: No axilla or inguinal lymphadenopathy External genitalia: Deferred Rectal: Deferred Assessment and Plan - Plan Respiratory failure secondary to pneumonia, history of COPD cxr in ED Nebs, steroids, and antibiotics O2 per protocol Repeat chest x-ray Pulse ox every 4h Abdominal pain CT abdomen pelvis in ED showed: "Moderate right and small left pleural effusions. Large 3.3 cm gallstone in gallbladder. Mild gallbladder wall thickening and cystic duct dilatation. Small 1.1 cm hypoechoic enhancing focus at the anterior hepatic lobe, likely a hemangioma. Subcentimeter pancreatic tail cyst. Additional chronic findings."" Gallbladder ultrasound showed: "The gallbladder is partially distended and contains a large shadowing intraluminal echo consistent with a gallstone. This is located in the gallbladder fundus. This corresponds to the abnormality noted on the prior CT scan. The gallbladder wall measures approximately 2.5 mm in diameter. There is no definite pericholecystic fluid. The common bile duct is mildly dilated and measures approximately 8 mm in diameter. The portal vein is patent.". LFTs negative Serial abdominal exams LFT reevaluate Lipase in a.m. Hypertension with CHF Given hydralazine and labetalol in ED Beta-jong gentle diuresis Strict Is & Os Daily weight Iron deficiency anemia Current H&H 9.2 and 29 Iron and ferritin levels Monitor H&H Status post CVA with dementia Bedside swallow screen prior to clear liquids, advance as needed Skin protection measures Fall precautions Frequent reorienting Daughter is chief historian 12/16/23 CT chest: Mild interstitial pulmonary edema is suspected bilateral pleural effusions, larger on the right. This may indicate CHF or volume overload. H/H 9.2 today 8.8 and 27.9 Creatinine mildly elevated 1.42 Lasix 20mg IV daily continue I&O VTE/GI prophylaxis Will need home med reconciliation - Advance Directives Does patient have a Living Will: No Does patient have a Durable POA for Healthcare: Yes <Britta Millan - Last Filed: 12/16/23 13:14> Patient was seen and examined. Events of the last 24 hours have been noted. Spoke with with BOBBY regarding patient's clinical picture after evaluating and examining the patient independently. I performed a substantial part of the MDM d uring this patient's care today. I personally made or approved the documented management plan and acknowledge its risk of complications. I agree with the findings and documentation provided in the BOBBY's notes. She was admitted with respiratory failure with pneumonia and COPD. Patient respiratory status has improved. Clinically doing much better. At this time, patient is doing well clinically and plan to continue with blood pressure control and diuresing patient. Physical therapy evaluation. <Briana Jean - Last Filed: 12/21/23 19:24>
--- NOTE | 2023-12-16 15:05 | EKG ---
Test Date: 2023-12-15 Test Time: 01:33:29 [employer]: AF MEASUREMENT RESULTS: Intervals: Rate: 83 HI: 198 QRSD: 88 QT: 420 QTc: 493 [place]: P: 64 HI: 198 QRS: 68 T: 60 INTERPRETIVE STATEMENTS: Sinus rhythm with occasional premature ventricular complexes Prolonged QT Abnormal ECG Compared to ECG 07/23/2023 10:02:06 Ventricular premature complex(es) now present Prolonged QT interval now present Electronically Signed On 12-16-23 15:05:13 CDT by Theo Gorman
[2023-12-16] MEDS: FUROSEMIDE 20 MG/ 2ML VIAL IV SCH (15:07)
--- NOTE | 2023-12-16 19:39 | RAD REPORT ---
EXAMINATION: Chest Lateral Decubitus CLINICAL INDICATION: right lateral decubitus film/pleural effusion RIGHT TECHNIQUE: 2 view decubitus radiographs of the chest were performed. COMPARISON: CT dated 12/16/2023 FINDINGS: Decubitus views of the chest demonstrate 3 cm thick freely flowing left pleural effusion. The right s tawanda up decubitus view is limited due to positioning excluding majority of the lateral thoracic cage.
[2023-12-17] MEDS: LORazepam 2 MG/ML VIAL IV PRN (01:56)
--- NOTE | 2023-12-17 07:09 | P.PN ---
Date of Service: 12/17/23 Subjective 96% on 3 L shortness of breath with exertion Review of Systems 10-point ROS is otherwise unremarkable Physical Examination - Vital Signs reviewed - Physical Exam General: Alert, Oriented x1, confused, Obese HEENT: Atraumatic, Normocephalic Neck: Supple Respiratory: Crackles/rales, Other (pulls oxygen off, Spo2 80s) Cardiovascular: Regular rate/rhythm Capillary refill: <2 Seconds Gastrointestinal: Abdominal distention Musculoskeletal: No clubbing, generalized weakness Integumentary: Other (pallor) Neurological: Abnormal speech, Abnormal strength, Abnormal affect, Dementia Assessment and Plan - Plan Acute hypoxic respiratory failure respiratory secondary to pneumonia, pulmonary edema Pulmonary edema With bilateral pleural effusion COPD exacerbation cxr in ED Nebs, steroids, and antibiotics O2 per protocol Repeat chest x-ray Pulse ox every 4h 12/16/23 CT chest: Mild interstitial pulmonary edema is suspected bilateral pleural effusions, larger on the right. This may indicate CHF or volume overload. H/H . today 8.8 and 27.9 Creatinine mildly elevated 1.42 Lasix 20mg IV daily continue I&O Abdominal pain CT abdomen pelvis in ED showed: "Moderate right and small left pleural effusions. Large 3.3 cm gallstone in gallbladder. Mild gallbladder wall thickening and cystic duct dilatation. Small 1.1 cm hypoechoic enhancing focus at the anterior hepatic lobe, likely a hemangioma. Subcentimeter pancreatic tail cyst. Additional chronic findings."" Gallbladder ultrasound showed: "The gallbladder is partially distended and contains a large shadowing intraluminal echo consistent with a gallstone. This is located in the gallbladder fundus. This corresponds to the abnormality noted on the prior CT scan. The gallbladder wall measures approximately 2.5 mm in diameter. There is no definite pericholecystic fluid. The common bile duct is mildly dilated and measures approximately 8 mm in diameter. The portal vein is patent.". LFTs negative Serial abdominal exams LFT reevaluate Lipase in a.m. Hypertension Acute on chronic heart failure acute on chronic heart failure Given hydralazine and labetalol in ED Beta-jong gentle diuresis Strict Is & Os Daily weight Iron deficiency anemia Current H&H 9.2 and 29 Iron and ferritin levels Monitor H&H Status post CVA dementia Bedside swallow screen prior to clear liquids, advance as needed Skin protection measures Fall precautions Frequent reorienting Daughter is historian VTE/GI prophylaxis Will need home med reconciliation - Advance Directives Does patient have a Living Will: No Does patient have a Durable POA for Healthcare: Yes , With patient 30 minutes <Kindra Patton - Last Filed: 12/18/23 22:11> Patient was seen and examined. Events of the last 24 hours have been noted. Spoke with with BOBBY regarding patient's clinical picture after evaluating and examining the patient independently. I performed a substantial part of the MDM during this patient's care today. I personally made or approved the documented management plan and acknowledge its risk of complications. I agree with the findings and documentation provided in the BOBBY's notes. She was admitted with respiratory failure with pneumonia and COPD. Patient respiratory status has improved. Clinically doing much better. At this time, patient is doing well clinically and plan to continue with blood pressure control and diuresing patient. Physical therapy evaluation. <Briana Jean - Last Filed: 12/21/23 19:24>
--- NOTE | 2023-12-17 07:46 | RAD REPORT ---
EXAMINATION: ONE VIEW CHEST XR CLINICAL INDICATION: pneumonia TECHNIQUE: Frontal chest projection is submitted. Examination is limited by patient positioning and t echnique. COMPARISON: 12/15/2023 FINDINGS: Bilateral pulmonary opacities have mildly progressed since comparison study suspicious for pulmonary edema. The heart is moderately enlarged in size. No displaced fractures identified. Small bilateral pleural effusion likely present. IMPRESSION: [id number] CHF versus volume overload pattern.
[2023-12-17 07:51] LABS: Absolute Basophils 0.1 K/uL (0-0.5); Absolute Eosinophils 0.9 K/uL (0-0.5); Absolute Lymphocytes (CBC) 1.9 K/uL (0.7-4.9); Absolute Monocytes 0.6 K/uL (0.1-1.3); Absolute Neutrophil 4.2 K/uL (1.8-8.0); Basophils % 1.2 % (0-1.3); Hematocrit 27.5 % (36.0-45.0); Hemoglobin 8.4 g/dL (12.0-15.0); Lymphocytes % 24.6 % (15.3-44.8); MCH 24.2 pg (27.0-35.0); MCHC 30.5 g/dL (32.0-36.0); MCV 79.5 fL (80-100); MPV 8.3 fL (7.6-11.3); Monocytes % 7.9 % (3.3-12.3); Neutrophils % 54.3 % (41.7-73.7); Platelets 276 thou/uL (152-406); RBC Red Blood Cell Count 3.45 M/uL (3.86-4.86)
[2023-12-17 08:06] LABS: Albumin 2.6 g/dL (3.4-5.0); Albumin/Globulin Ratio 0.7 (1.1-1.8); Alkaline Phosphatase 92 U/L (45-117); Anion Gap 5.9 mEq/L (5.0-15.0); BUN Blood Urea Nitrogen 19 mg/dL (7-18); Bicarbonate 32 mEq/L (21-32); Bilirubin Total 0.3 mg/dL (0.2-1.0); Globulin 3.6 g/dL (2.3-3.5); Glomerular Filtration Rate 40 ml/min (=/>90); Glucose Level 88 mg/dL (74-106); Magnesium 2.3 mg/dL (1.6-2.4); Phosphorus 4.2 mg/dL (2.5-4.9); Potassium 3.9 mEq/L (3.5-5.1); Protein, Total 6.2 g/dL (6.4-8.2); Sodium Level 141 mEq/L (136-145)
[2023-12-17 08:07] LABS: ALT/SGPT < 14 U/L (13-56); AST/SGOT < 10 U/L (15-37)
[2023-12-18 06:02] LABS: Absolute Basophils 0.1 K/uL (0-0.5); Absolute Eosinophils 1.3 K/uL (0-0.5); Absolute Monocytes 0.7 K/uL (0.1-1.3); Absolute Neutrophil 4.4 K/uL (1.8-8.0); Basophils % 1.3 % (0-1.3); Eosinophils % 15.3 % (0-4.4); Hemoglobin 8.6 g/dL (12.0-15.0); Lymphocytes % 23.4 % (15.3-44.8); MCH 24.8 pg (27.0-35.0); MCHC 31.9 g/dL (32.0-36.0); MCV 77.9 fL (80-100); MPV 7.6 fL (7.6-11.3); Monocytes % 8.3 % (3.3-12.3); Neutrophils % 51.7 % (41.7-73.7); Platelets 299 thou/uL (152-406); RBC Red Blood Cell Count 3.46 M/uL (3.86-4.86); Red Cell Distribution Width 17.2 % (12.1-15.2)
[2023-12-18 06:28] LABS: ALT/SGPT < 14 U/L (13-56); AST/SGOT < 10 U/L (15-37); Albumin 2.5 g/dL (3.4-5.0); Albumin/Globulin Ratio 0.7 (1.1-1.8); Alkaline Phosphatase 90 U/L (45-117); Anion Gap 6.5 mEq/L (5.0-15.0); BUN Blood Urea Nitrogen 20 mg/dL (7-18); Bicarbonate 31 mEq/L (21-32); Bilirubin Total 0.4 mg/dL (0.2-1.0); Globulin 3.5 g/dL (2.3-3.5); Glomerular Filtration Rate 40 ml/min (=/>90); Glucose Level 92 mg/dL (74-106); Magnesium 2.4 mg/dL (1.6-2.4); Phosphorus 4.2 mg/dL (2.5-4.9); Potassium 3.5 mEq/L (3.5-5.1); Sodium Level 139 mEq/L (136-145)
[2023-12-18 06:55] LABS: Anisocytosis 2+; Blood Morphology Comment NOTED (NOT SEEN); Microcytosis 1+; Platelet Estimate ADEQ; White Blood Cell Scan OK (OK)
--- NOTE | 2023-12-18 10:29 | P.PN ---
Subjective Date of Service: 12/18/23 Chief Complaint: Respiratory failure CHF/pneumonia. Cholelithiasis/abd pain Subjective: Improving <Britta Milaln - Last Filed: 12/18/23 17:17> Date of Service: 12/18/23 <Briana Jean - Last Filed: 12/21/23 19:26> Review of Systems 10-point ROS is otherwise unremarkable General: Unremarkable Eyes: Unremarkable ENT: Unremarkable Respiratory: Unremarkable Cardiovascular: Unremarkable Gastrointestinal: Unremarkable Musculoskeletal: Unremarkable Integumentary: Unremarkable Neurological: Unremarkable Lymphatics: Unremarkable <Britta Millan - Last Filed: 12/18/23 17:17> Physical Examination - Vital Signs Temperature: 98.1 F Blood Pressure: 143/58 Pulse: 71 Respirations: 18 Pulse Ox (%): 94 - Physical Exam General: Other (sleeping with resp even and unlabored. O2 at 3L via N/c) HEENT: Atraumatic, Normocephalic Neck: Supple Respiratory: Normal air movement Cardiovascular: Regular rate/rhythm Capillary refill: <2 Seconds Gastrointestinal: Normal bowel sounds Musculoskeletal: No clubbing Integumentary: No rashes Neurological: Dementia Lymphatics: No axilla or inguinal lymphadenopathy External genitalia: Deferred Rectal: Deferred <Britta Millan - Last Filed: 12/18/23 17:17> Assessment And Plan - Plan Respiratory failure secondary to pneumonia, history of COPD cxr in ED Nebs, steroids, and antibiotics O2 per protocol Repeat chest x-ray Pulse ox every 4h Abdominal pain CT abdomen pelvis in ED showed: "Moderate right and small left pleural effusions. Large 3.3 cm gallstone in gallbladder. Mild gallbladder wall thickening and cystic duct dilatation. Small 1.1 cm hypoechoic enhancing focus at the anterior hepatic lobe, likely a hemangioma. Subcentimeter pancreatic tail cyst. Additional chronic findings."" Gallbladder ultrasound showed: "The gallbladder is partially distended and contains a large shadowing intraluminal echo consistent with a gallstone. This is located in the gallbladder fundus. This corresponds to the abnormality noted on the prior CT scan. The gallbladder wall measures approximately 2.5 mm in diameter. There is no definite pericholecystic fluid. The common bile duct is mildly dilated and measures approximately 8 mm in diameter. The portal vein is patent.". LFTs negative Serial abdominal exams LFT reevaluate Lipase in a.m. Hypertension with CHF Given hydralazine and labetalol in ED HERNANDEZ inhibitor/ARB Beta-jong gentle diuresis Strict Is & Os Daily weight 12/17/23 20mg Lasix IV x extra dose today Iron deficiency anemia Current H&H 9.2 and 29 Iron and ferritin levels Monitor H&H Status post CVA with dementia Bedside swallow screen prior to clear liquids, advance as needed Skin protection measures Fall precautions Frequent reorienting Daughter is chief historian and will be back per ED MD 12/18/23 Awaiting placement VTE/GI prophylaxis Will need home med reconciliation <Britta Millan - Last Filed: 12/18/23 17:17> Date of Service: 12/18/23 Patient was seen and examined. Events of the last 24 hours have been noted. Spoke with with BOBBY regarding patient's clinical picture after evaluating and examining the patient independently. I performed a substantial part of the MDM during this patient's care today. I personally made or approved the documented management plan and acknowledge its risk of complications. I agree with the findings and documentation provided in the BOBBY's notes. She was admitted with respiratory failure with pneumonia and COPD. Patient resp iratory status has improved. Clinically doing much better. At this time, patient is doing well clinically and plan to continue with blood pressure control and diuresing patient. Physical therapy evaluation. Family is wanting patient to get [facility]. Continue working with physical therapy. <Briana Jean - Last Filed: 12/21/23 19:26>
[2023-12-18] MEDS: FUROSEMIDE 20 MG/ 2ML VIAL IV ONE (12:21)
--- NOTE | 2023-12-19 06:53 | P.PN ---
Date of Service: 12/19/23 Subjective 94% on 2 L, productive cough Pending placement Review of Systems 10-point ROS negative is otherwise unremarkable Physical Examination - Vital Signs reviewed - Physical Exam General: Alert, Oriented x1, confused, Obese HEENT: Atraumatic, Normocephalic Neck: Supple Respiratory: Crackles/rales, productive cough Cardiovascular: Regular rate/rhythm Capillary refill: <2 Seconds Gastrointestinal: Abdominal distention Musculoskeletal: No clubbing, generalized weakness Integumentary: Other (pallor) Neurological: Abnormal speech, Abnormal strength, Abnormal affect, Dementia Assessment and Plan - Plan Acute hypoxic respiratory failure respiratory secondary to pneumonia, pulmonary edema improving Pulmonary edema improved Cardiomegaly bilateral pleural effusion COPD exacerbation improved cxr in ED Nebs, steroids, and antibiotics O2 per protocol Repeat chest x-ray Pulse ox every 4h 12/16/23 CT chest: Mild interstitial pulmonary edema is suspected bilateral pleural effusions, larger on the right. This may indicate CHF or volume overload. H/H 9. today 8.8 and 27.9 Creatinine mildly elevated 1.42 Lasix 20mg IV daily continue I&O Abdominal pain CT abdomen pelvis in ED showed: "Moderate right and small left pleural effusions. Large 3.3 cm gallstone in gallbladder. Mild gallbladder wall thickening and cystic duct dilatation. Small 1.1 cm hypoechoic enhancing focus at the anterior hepatic lobe, likely a hemangioma. Subcentimeter pancreatic tail cyst. Additional chronic findings."" Gallbladder ultrasound showed: "The gallbladder is partially distended and contains a large shadowing intraluminal echo consistent with a gallstone. This is located in the gallbladder fundus. This corresponds to the abnormality noted on the prior CT scan. The gallbladder wall measures approximately 2.5 mm in diameter. There is no definite pericholecystic fluid. The common bile duct is mildly dilated and measures approximately 8 mm in diameter. The portal vein is patent.". LFTs negative Serial abdominal exams LFT reevaluate Lipase in a.m. Hypertension Acute on chronic heart failure acute on chronic heart failure Given hydralazine and labetalol in ED Beta-jong gentle diuresis Strict Is & Os Daily weight Iron deficiency anemia Current H&H 9.2 and 29 Iron and ferritin levels Monitor H&H Status post CVA dementia Bedside swallow screen prior to clear liquids, advance as needed Skin protection measures Fall precautions Frequent reorienting Daughter is historian VTE/GI prophylaxis Will need home med reconciliation - Advance Directives Does patient have a Living Will: No Does patient have a Durable POA for Healthcare: Yes , With patient 30 minutes <Kindra Patton - Last Filed: 12/19/23 19:45> Patient was seen and examined. Events of the last 24 hours have been noted. Spoke with with BOBBY regarding patient's clinical picture after evaluating and examining the patient independently. I performed a substantial part of the MDM during this patient's care today. I personally made or approved the documented management plan and acknowledge its risk of complications. I agree with the findings and documentation provided in the BOBBY's notes. She was admitted with respiratory failure with pneumonia and COPD. Patient respiratory status has improved. Clinically doing much better. At this time, patient is doing well clinically and plan to continue with blood pressure control and diuresing patient. Physical therapy evaluation. Family is wanting patient to get patient to a assisted facility for rehab. <Briana Jean - Last Filed: 12/21/23 19:26>
--- NOTE | 2023-12-19 06:53 | P.DS ---
Admission Date: 12/15/23 Discharge Date: 12/23/23 Disposition: TRANSFER TO LONG-TERM Reason for Admission: Respiratory failure CHF/pneumonia. Cholelithiasis/abd pain Brief History of Present Illness: Ms. Gil is an 88-year-old female with a past medical history of hypertension, CHF, COPD, CVA with dementia who lives with her daughter. Her daughter called EMS secondary to noting high blood pressure and low oxygen saturation with the patient complaining of abdominal pain. Denies fever, vomiting, trauma. On evaluation in the emergency department she was noted to be hypertensive at 185/82 with a heart rate of 87 and oxygen saturation of 84% on room air. She was placed on oxygen and given hydralazine p.o. then labetalol 10 mg IV. Her abdominal pain was treated with morphine 4 mg IV and Zofran 4 mg IV. Her symptoms were much improved after imaging she was given Levaquin 750 mg IV piggyback and the hospitalist program was asked to admit her for respiratory failure secondary to CHF/pneumonia and abdominal pain. - Physical Exam General: Alert, Oriented x1, Demented, Obese HEENT: Atraumatic, Normocephalic Neck: Supple Respiratory: Diminished crackles/rales, 2L NC Cardiovascular: Regular rate/rhythm Capillary refill: <2 Seconds Gastrointestinal: Distended, soft Musculoskeletal: No clubbing Integumentary: Other (pallor) Neurological: Abnormal speech, Abnormal strength, Abnormal affect, Dementia Hospital Course: Ms. Gil is an 88-year-old female with a past medical history of hypertension, CHF, COPD, CVA with dementia who lives with her daughter. Her daughter called EMS secondary to noting high blood pressure and low oxygen saturation with the patient complaining of abdominal pain. Denies fever, vomiting, trauma. On evaluation in the emergency department she was noted to be hypertensive at 185/82 with a heart rate of 87 and oxygen saturation of 84% on room air. He was noted to have acute hypoxic respiratory failure secondary to acute on chronic heart failure, pulmonary edema, bilateral pleural effusions, COPD exacerbation. She was treated with Lasix, oxygen, nebulizers, steroids, IV antibiotics. Home blood pressure medications was restarted, she was evaluated by speech therapy, treated with aspiration precautions, passed bedside swallow Bedside swallow screen prior to clear liquids, pending discharge to the [facility], Assessment Acute hypoxic respiratory failure secondary to heart failure, COPD exacerbation, improved with Lasix, steroids, nebulizers, oxygen. Essential hypertension, home blood pressure medications resumed, Iron deficiency anemia stable, globin 8.8, to 8.6, 27.9, 27.5 CVA with history of dementia passed bedside swallow with clear liquids with aspiration precaution Abdominal pain CKD (chronic kidney disease) stage 3, GFR 30-59 ml/min CT abdomen pelvis in ED showed: "Moderate right and small left pleural effusions. Large 3.3 cm gallstone in gallbladder. Mild gallbladder wall thickening and cystic duct dilatation. Small 1.1 cm hypoechoic enhancing focus at the anterior hepatic lobe, likely a hemangioma. Subcentimeter pancreatic tail cyst. Additional chronic findings."" Gallbladder ultrasound showed:"The gallbladder is partially distended and contains a large shadowing intraluminal echo consistent with a gallstone. This is located in the gallbladder fundus. This corresponds to the abnormality noted on the prior CT scan. The gallbladder wall measures approximately 2.5 mm in diameter. There is no definite pericholecystic fluid. The common bile duct is mildly dilated and measures approximately 8 mm in diameter. The portal vein is patent.". LFTs negative INSTRUCTIONS: Physician Discharge Instructions: -Follow-up with PCP in 1 to 2 weeks -Please call Dr. Jean at [phone] if any questions regarding hospital stay -Please call nursing station at [phone] if any nursing or medication questions -Return to the emergency room if symptoms worsen Diet: ADA, low sodium Activity: Fall precautions Vital Signs/Physical Exam: Temp Pulse Resp BP Pulse Ox 97.8 F 89 18 106/56 L 92 12/19/23 04:00 12/19/23 04:00 12/19/23 04:00 12/19/23 04:00 12/19/23 04:00 Laboratory Data at Discharge: WBC 8.50 thou/uL (4.3-10.9) 12/18/23 05:52 Hgb 8.6 g/dL (12.0-15.0) L 12/18/23 05:52 Hct 27.0 % (36.0-45.0) L 12/18/23 05:52 Plt Count 299 thou/uL (152-406) 12/18/23 05:52 PT 11.6 SECONDS (9.4-12.5) 12/15/23 04:26 INR 1.04 12/15/23 04:26 APTT 28.3 SECONDS (24.3-36.9) 12/15/23 04:26 Sodium 139 mEq/L (136-145) 12/18/23 05:52 Potassium 3.5 mEq/L (3.5-5.1) 12/18/23 05:52 BUN 20 mg/dL (7-18) H 12/18/23 05:52 Creatinine 1.29 mg/dL (0.55-1.02) H 12/18/23 05:52 Glucose 92 mg/dL (74-106) 12/18/23 05:52 Phosphorus 4.2 mg/dL (2.5-4.9) 12/18/23 05:52 Magnesium 2.4 mg/dL (1.6-2.4) 12/18/23 05:52 Total Bilirubin 0.4 mg/dL (0.2-1.0) 12/18/23 05:52 AST < 10 U/L (15-37) L 12/18/23 05:52 ALT < 14 U/L (13-56) 12/18/23 05:52 Alkaline Phosphatase 90 U/L (45-117) 12/18/23 05:52 Triglycerides 121 mg/dL (<150) 12/16/23 07:02 Cholesterol 104 mg/dL (<200) 12/16/23 07:02 HDL Cholesterol 55 mg/dL (40-60) 12/16/23 07:02 Cholesterol/HDL Ratio 1.89 12/16/23 07:02 Lipase 43 U/L (13-75) 12/15/23 01:28 Home Medications: Apixaban [Eliquis] 5 mg PO BID #60 12/26/21 Aspirin Chewable [Aspirin Chewable*] 81 mg PO DAILY tab.chew 12/26/21 Atorvastatin Calcium [Lipitor] 80 mg PO BEDTIME #30 tab 12/26/21 Cranberry Fruit Extract 400 mg PO BID cap 12/26/21 Cyanocobalamin [Vitamin B-12*] 1,000 mcg PO DAILY tab 12/26/21 Docusate/Senna [Senokot-S*] 2 tab PO BEDTIME PRN tab 12/26/21 Famotidine [Pepcid*] 20 mg PO DAILY #30 tab 12/26/21 Melatonin 5 mg PO BEDTIME PRN PRN 12/26/21 Metoprolol Tartrate [Lopressor*] 25 mg PO BID #60 tab 12/26/21 Quetiapine [Seroquel*] 25 mg PO BEDTIME PRN #30 tab 12/26/21 Diet: AHA Activity: Fall precautions Followup: NONE,NONE [Primary Care Provider] - Time spent managing pt's care (in minutes): 55
[2023-12-19] MEDS ORDERED: IPRATROPIUM BROM 0.5MG/2.5ML NEB PRN (10:04)
[2023-12-19] MEDS: ALBUTEROL 2.5 MG/3 ML NEB SOL NEB SCH (13:17)
[2023-12-19] MEDS: IPRATROPIUM BROM 0.5MG/2.5ML NEB SCH (20:30)
[2023-12-21 06:37] LABS: Absolute Basophils 0.1 K/uL (0-0.5); Absolute Eosinophils 0.9 K/uL (0-0.5); Absolute Lymphocytes (CBC) 1.9 K/uL (0.7-4.9); Absolute Monocytes 0.6 K/uL (0.1-1.3); Absolute Neutrophil 4.6 K/uL (1.8-8.0); Eosinophils % 10.8 % (0-4.4); Hematocrit 29.8 % (36.0-45.0); Hemoglobin 9.4 g/dL (12.0-15.0); Lymphocytes % 23.5 % (15.3-44.8); MCH 24.9 pg (27.0-35.0); MCHC 31.5 g/dL (32.0-36.0); MCV 78.8 fL (80-100); MPV 8.7 fL (7.6-11.3); Monocytes % 7.7 % (3.3-12.3); Platelets 252 thou/uL (152-406); RBC Red Blood Cell Count 3.78 M/uL (3.86-4.86); Red Cell Distribution Width 17.4 % (12.1-15.2)
[2023-12-21 06:55] LABS: AST/SGOT 11 U/L (15-37); Albumin 2.8 g/dL (3.4-5.0); Albumin/Globulin Ratio 0.8 (1.1-1.8); Alkaline Phosphatase 83 U/L (45-117); Anion Gap 6.4 mEq/L (5.0-15.0); BUN Blood Urea Nitrogen 27 mg/dL (7-18); Bicarbonate 30 mEq/L (21-32); Bilirubin Total 0.6 mg/dL (0.2-1.0); Globulin 3.7 g/dL (2.3-3.5); Glomerular Filtration Rate 39 ml/min (=/>90); Glucose Level 96 mg/dL (74-106); Magnesium 2.2 mg/dL (1.6-2.4); Potassium 3.4 mEq/L (3.5-5.1); Protein, Total 6.5 g/dL (6.4-8.2); Sodium Level 138 mEq/L (136-145)
[2023-12-21 06:56] LABS: ALT/SGPT < 14 U/L (13-56)
--- NOTE | 2023-12-21 09:00 | P.PN ---
This note was from December 20, 2023 Patient was seen and examined. Events of the last 24 hours have been noted. Spoke with with BOBBY regarding patient's clinical picture after evaluating and examining the patient independently. I performed a substantial part of the MDM during this patient's care today. I personally made or approved the documented management plan and acknowledge its risk of complications. I agree with the findings and documentation provided in the BOBBY's notes. She was admitted with respiratory failure with pneumonia and COPD. Patient respiratory status has improved. Clinically doing much better. At this time, patient is doing well clinically and plan to continue with blood pressure control and diuresing patient. Physical therapy evaluation. Family is wanting patient to get patient to a [facility]pc facility for rehab. At this time, we are waiting for placement. <Briana Jean - Last Filed: 12/21/23 19:26> Date of Service: 12/20/23 Subjective 94% on 2 L, productive cough Pending placement Review of Systems 10-point ROS negative is otherwise unremarkable Physical Examination - Vital Signs reviewed - Physical Exam General: Alert, Oriented x1, confused, Obese HEENT: Atraumatic, Normocephalic Neck: Supple Respiratory: Crackles/rales, productive cough Cardiovascular: Regular rate/rhythm Capillary refill: <2 Seconds Gastrointestinal: Abdominal distention Musculoskeletal: No clubbing, generalized weakness Integumentary: Other (pallor) Neurological: Abnormal speech, Abnormal strength, Abnormal affect, Dementia Assessment and Plan - Plan Acute hypoxic respiratory failure respiratory secondary to pneumonia, pulmonary edema improving Atrial fibrillation Chronic anticoagulation on Eliquis Pulmonary edema improved Cardiomegaly bilateral pleural effusion COPD exacerbation improved cxr in ED Nebs, steroids, and antibiotics O2 per protocol Repeat chest x-ray Pulse ox every 4h 12/16/23 CT chest: Mild interstitial pulmonary edema is suspected bilateral pleural effusions, larger on the right. This may indicate CHF or volume overload. H/H 9.2 today 8.8 and 27.9 Creatinine mildly elevated 1.42 Lasix 40 daily, metoprolol, telemetry continue I&O Abdominal pain CT abdomen pelvis in ED showed: "Moderate right and small left pleural effusions. Large 3.3 cm gallstone in gallbladder. Mild gallbladder wall thickening and cystic duct dilatation. Small 1.1 cm hypoechoic enhancing focus at the anterior hepatic lobe, likely a hemangioma. Subcentimeter pancreatic tail cyst. Additional chronic findings."" Gallbladder ultrasound showed: "The gallbladder is partially distended and contains a large shadowing intraluminal echo consistent with a gallstone. This is located in the gallbladder fundus. This corresponds to the abnormality noted on the prior CT scan. The gallbladder wall measures approximately 2.5 mm in diameter. There is no definite pericholecystic fluid. The common bile duct is mildly dilated and measures approximately 8 mm in diameter. The portal vein is patent.". LFTs negative Serial abdominal exams LFT reevaluate Lipase in a.m. Hypertension Acute on chronic heart failure acute on chronic heart failure Given hydralazine and labetalol in ED Beta-jong gentle diuresis Strict Is & Os Daily weight Iron deficiency anemia Current H&H 9.2 and 29 Iron and ferritin levels Monitor H&H Status post CVA dementia Bedside swallow screen prior to clear liquids, advance as needed Skin protection measures Fall precautions Frequent reorienting Daughter is historian VTE/GI prophylaxis Will need home med reconciliation - Advance Directives Does patient have a Living Will: No Does patient have a Durable POA for Healthcare: Yes , With patient 30 minutes <Kindra Patton - Last Filed: 12/23/23 17:09>
[2023-12-21] MEDS: POTASSIUM 25 MEQ EFFERV TAB PO ONE (09:39)
[2023-12-22 06:56] LABS: Anion Gap 7.5 mEq/L (5.0-15.0); Potassium 3.5 mEq/L (3.5-5.1)
--- NOTE | 2023-12-22 07:00 | P.PN ---
Date of Service: 12/21/23 Subjective 2 L nasal cannula,, productive cough improving care home facility pending placement Review of Systems 10-point ROS negative is otherwise unremarkable Physical Examination - Vital Signs reviewed - Physical Exam General: Alert, Oriented x1, afebrile HEENT: Atraumatic, Normocephalic Neck: Supple Respiratory: Crackles/rales, productive cough, unlabored Cardiovascular: Regular rate/rhythm Capillary refill: <2 Seconds Gastrointestinal: Abdominal distention Musculoskeletal: No clubbing, generalized weakness Integumentary: Other (pallor) Neurological: Abnormal speech, Abnormal strength, Abnormal affect, Dementia Assessment and Plan - Plan Acute hypoxic respiratory failure respiratory secondary to pneumonia, pulmonary edema improving History of atrial fibrillation Chronic anticoagulation Pulmonary edema improved Cardiomegaly bilateral pleural effusion COPD exacerbation improved cxr in ED Nebs, steroids, and antibiotics O2 per protocol Repeat chest x-ray Pulse ox every 4h 12/16/23 CT chest: Mild interstitial pulmonary edema is suspected bilateral pleural effusions, larger on the right. This may indicate CHF or volume overload. H/H 9.29 today 8.8 and 27.9 Creatinine mildly elevated 1.42 Lasix 40 mg daily, metoprolol, telemetry, continue I&O Abdominal pain improved CT abdomen pelvis in ED showed: "Moderate right and small left pleural effusions. Large 3.3 cm gallstone in gallbladder. Mild gallbladder wall thickening and cystic duct dilatation. Small 1.1 cm hypoechoic enhancing focus at the anterior hepatic lobe, likely a hemangioma. Subcentimeter pancreatic tail cyst. Additional chronic findings."" Gallbladder ultrasound showed: "The gallbladder is partially distended and contains a large shadowing intraluminal echo consistent with a gallstone. This is located in the gallbladder fundus. This corresponds to the abnormality noted on the prior CT scan. The gallbladder wall measures approximately 2.5 mm in diameter. There is no definite pericholecystic fluid. The common bile duct is mildly dilated and measures approximately 8 mm in diameter. The portal vein is patent.". LFTs negative Serial abdominal exams LFT reevaluate Lipase in a.m. Hypertension Acute on chronic heart failure acute on chronic heart failure Given hydralazine and labetalol in ED Beta-jong gentle diuresis Strict Is & Os Daily weight Iron deficiency anemia stable Current H&H 9.2 and 29 Iron and ferritin levels Monitor H&H Hypokalemia Trend electrolytes replace as needed Status post CVA dementia Bedside swallow screen prior to clear liquids, advance as needed Skin protection measures Fall precautions Frequent reorienting Daughter is historian VTE/GI prophylaxis Will need home med reconciliation - Advance Directives Does patient have a Living Will: No Does patient have a Durable POA for Healthcare: Yes , With patient 25 minutes
[2023-12-22] MEDS: POTASSIUM CL SA 10 MEQ TAB PO ONE (08:13)
[2023-12-22] MEDS: SPIRONOLACTONE 25 MG TABLET PO SCH (11:06)
[2023-12-23 07:13] LABS: Anion Gap 7.7 mEq/L (5.0-15.0); Potassium 3.7 mEq/L (3.5-5.1)
[2023-12-23] MEDS: POTASSIUM 25 MEQ EFFERV TAB PO ONE (08:58)
[2023-12-23] MEDS ORDERED: QUETIAPINE 25 MG TAB PO PRN (17:06)
[2023-12-23] MEDS ORDERED: DOCUSATE NA/SENNA CONC 1 TAB PO PRN (17:06)
--- NOTE | 2023-12-23 17:15 | P.PN ---
Date of Service: 12/23/23 Subjective 2 L nasal cannula,, productive cough improving assisted facility pending placement Review of Systems 10-point ROS negative is otherwise unremarkable Physical Examination - Vital Signs reviewed - Physical Exam General: Alert, Oriented x1, afebrile, no acute distress HEENT: Atraumatic, Normocephalic Neck: Supple Respiratory: Crackles/rales, unlabored, Cardiovascular: Regular rate/rhythm Capillary refill: <2 Seconds Gastrointestinal: Abdominal distention Musculoskeletal: No clubbing, generalized weakness, Integumentary: Other (pallor) Neurological: Abnormal speech,, Dementia Assessment and Plan - Plan Acute hypoxic respiratory failure respiratory secondary to pneumonia, pulmonary edema improving History of atrial fibrillation Chronic anticoagulation Pulmonary edema improved Cardiomegaly bilateral pleural effusion COPD exacerbation improved cxr in ED Nebs, steroids, and antibiotics O2 per protocol Repeat chest x-ray Pulse ox every 4h 12/16/23 CT chest: Mild interstitial pulmonary edema is suspected bilateral pleural effusions, larger on the right. This may indicate CHF or volume overload. H/H 9. today 8.8 and 27.9 Creatinine mildly elevated 1.42 Spironolactone, Lasix 40 mg daily, metoprolol, telemetry, continue I&O Abdominal pain improved CT abdomen pelvis in ED showed: "Moderate right and small left pleural effusions. Large 3.3 cm gallstone in gallbladder. Mild gallbladder wall thickening and cystic duct dilatation. Small 1.1 cm hypoechoic enhancing focus at the anterior hepatic lobe, likely a hemangioma. Subcentimeter pancreatic tail cyst. Additional chronic findings."" Gallbladder ultrasound showed: "The gallbladder is partially distended and contains a large shadowing intraluminal echo consistent with a gallstone. This is located in the gallbladder fundus. This corresponds to the abnormality noted on the prior CT scan. The gallbladder wall measures approximately 2.5 mm in diameter. There is no definite pericholecystic fluid. The common bile duct is mildly dilated and measures approximately 8 mm in diameter. The portal vein is patent.". LFTs negative Serial abdominal exams LFT reevaluate Lipase in a.m. Hypertension Acute on chronic heart failure acute on chronic heart failure Given hydralazine and labetalol in ED Beta-jong gentle diuresis Strict Is & Os Daily weight Iron deficiency anemia stable Current H&H 9.2 and 29 Iron and ferritin levels Monitor H&H Hypokalemia Trend electrolytes replace as needed Status post CVA dementia Bedside swallow screen prior to clear liquids, advance as needed Skin protection measures Fall precautions Frequent reorienting Daughter is historian VTE/GI prophylaxis Will need home med reconciliation - Advance Directives Does patient have a Living Will: No Does patient have a Durable POA for Healthcare: Yes , With patient 25 minutes
--- NOTE | 2023-12-23 17:18 | P.PN ---
Date of Service: 12/22/23 Subjective 2 L nasal cannula,, productive cough improving group home facility pending placement Review of Systems 10-point ROS negative is otherwise unremarkable Physical Examination - Vital Signs reviewed - Physical Exam General: Awake alert, Oriented x1, HEENT: Atraumatic, Normocephalic Neck: Supple Respiratory: Diminished, crackles/rales, equal unlabored, Cardiovascular: Regular rate/rhythm Capillary refill: <2 Seconds Gastrointestinal: Soft nontender Musculoskeletal: No clubbing, generalized weakness, Integumentary: Other (pallor) Neurological: Abnormal speech,, Dementia Assessment and Plan - Plan Acute hypoxic respiratory failure respiratory secondary to pneumonia, pulmonary edema improving History of atrial fibrillation Chronic anticoagulation Pulmonary edema improved Cardiomegaly bilateral pleural effusion COPD exacerbation improved cxr in ED Nebs, steroids, and antibiotics O2 per protocol Repeat chest x-ray Pulse ox every 4h 12/16/23 CT chest: Mild interstitial pulmonary edema is suspected bilateral pleural effusions, larger on the right. This may indicate CHF or volume overload. H/H 9. today 8.8 and 27.9 Creatinine mildly elevated 1.42 Spironolactone, Lasix 40 mg daily, metoprolol, telemetry, continue I&O Abdominal pain improved CT abdomen pelvis in ED showed: "Moderate right and small left pleural effusions. Large 3.3 cm gallstone in gallbladder. Mild gallbladder wall thickening and cystic duct dilatation. Small 1.1 cm hypoechoic enhancing focus at the anterior hepatic lobe, likely a hemangioma. Subcentimeter pancreatic tail cyst. Additional chronic findings."" Gallbladder ultrasound showed: "The gallbladder is partially distended and contains a large shadowing intraluminal echo consistent with a gallstone. This is located in the gallbladder fundus. This corresponds to the abnormality noted on the prior CT scan. The gallbladder wall measures approximately 2.5 mm in diameter. There is no definite pericholecystic fluid. The common bile duct is mildly dilated and measures approximately 8 mm in diameter. The portal vein is patent.". LFTs negative Serial abdominal exams LFT reevaluate Lipase in a.m. Hypertension Acute on chronic heart failure acute on chronic heart failure Given hydralazine and labetalol in ED Beta-jong gentle diuresis Strict Is & Os Daily weight Iron deficiency anemia stable Current H&H 9.2 and 29 Iron and ferritin levels Monitor H&H Hypokalemia Trend electrolytes replace as needed Status post CVA dementia Bedside swallow screen prior to clear liquids, advance as needed Skin protection measures Fall precautions Frequent reorienting Daughter is historian VTE/GI prophylaxis Will need home med reconciliation - Advance Directives Does patient have a Living Will: No Does patient have a Durable POA for Healthcare: Yes , With patient 25 minutes
[2023-12-23] MEDS ORDERED: METOPROLOL TAR 25 MG TAB PO SCH (21:00)
[2023-12-24] MEDS: FUROSEMIDE 40 MG TABLET PO SCH (10:30)
[2023-12-24] MEDS: FAMOTIDINE 20 MG TAB PO SCH (10:30)
--- NOTE | 2023-12-24 14:39 | P.PN ---
Date of Service: 12/24/23 Subjective better, less cough Review of Systems 10-point ROS is otherwise unremarkable General: As per HPI Respiratory: Shortness of Breath, As per HPI Cardiovascular: Unremarkable Gastrointestinal: Abdominal Pain, As per HPI Genitourinary: Unremarkable Musculoskeletal: Unremarkable Integumentary: Unremarkable Neurological: Confusion (at baseline) Physical Examination - Vital Signs reviewed - Physical Exam General: Alert, Oriented x1, Disheveled, Demented, Obese HEENT: Atraumatic, Normocephalic Neck: Supple Respiratory: Crackles/rales, Other (pulls oxygen off, Spo2 80s) Cardiovascular: Regular rate/rhythm Capillary refill: <2 Seconds Gastrointestinal: Distended, BS+ x 4 quads Musculoskeletal: No clubbing Integumentary: Other (pallor) Neurological: Abnormal speech, Abnormal strength, Abnormal affect, Dementia Lymphatics: No axilla or inguinal lymphadenopathy External genitalia: Deferred Rectal: Deferred Assessment and Plan - Plan Respiratory failure secondary to pneumonia, history of COPD cxr in ED Nebs, steroids, and antibiotics O2 per protocol Repeat chest x-ray Pulse ox every 4h Abdominal pain CT abdomen pelvis in ED showed: "Moderate right and small left pleural effusions. Large 3.3 cm gallstone in gallbladder. Mild gallbladder wall thickening and cystic duct dilatation. Small 1.1 cm hypoechoic enhancing focus at the anterior hepatic lobe, likely a hemangioma. Subcentimeter pancreatic tail cyst. Additional chronic findings."" Gallbladder ultrasound showed: "The gallbladder is partially distended and contains a large shadowing intraluminal echo consistent with a gallstone. This is located in the gallbladder fundus. This corresponds to the abnormality noted on the prior CT scan. The gallbladder wall measures approximately 2.5 mm in diameter. There is no definite pericholecystic fluid. The common bile duct is mildly dilated and measures approximately 8 mm in diameter. The portal vein is patent.". LFTs negative Serial abdominal exams LFT reevaluate Lipase in a.m. Hypertension with CHF Given hydralazine and labetalol in ED Beta-jong gentle diuresis Strict Is & Os Daily weight Iron deficiency anemia Current H&H 9.2 and 29 Iron and ferritin levels Monitor H&H Status post CVA with dementia Bedside swallow screen prior to clear liquids, advance as needed Skin protection measures Fall precautions Frequent reorienting Daughter is chief historian 12/16/23 CT chest: Mild interstitial pulmonary edema is suspected bilateral pleural effusions, larger on the right. This may indicate CHF or volume overload. H/H 9. today 8.8 and 27.9 Creatinine mildly elevated 1.42 Lasix 20mg IV daily continue I&O 12/24/23 no weight change H/H 9.4, 29.8 Creatinine 1.23 Nebs in progress on assessment pt without complaint awaiting placement - [facility] VTE/GI prophylaxis Will need home med reconciliation - Advance Directives Does patient have a Living Will: No Does patient have a Durable POA for Healthcare: Yes
[2023-12-24] MEDS: ENSURE ENLIVE 237 ML CAN PO SCH (20:19)
--- NOTE | 2023-12-25 12:23 | EKG ---
Test Date: 2023-12-23 Test Time: 19:09:10 Construction Specialist: ADRIAN MEASUREMENT RESULTS: Intervals: Rate: 95 OK: 202 QRSD: 90 QT: 384 QTc: 482 [place]: P: 57 OK: 202 QRS: 53 T: 53 INTERPRETIVE STATEMENTS: Normal sinus rhythm Normal ECG Compared to ECG 12/15/2023 01:33:29 Ventricular premature complex(es) no longer present Prolonged QT interval no longer present Electronically Signed On 12-25-23 12:18:03 [employer] by Theo Gorman
--- NOTE | 2023-12-25 18:14 | P.PN ---
Date of Service: 12/25/23 Subjective better, less cough Review of Systems 10-point ROS is otherwise unremarkable General: As per HPI Respiratory: Shortness of Breath, As per HPI Cardiovascular: Unremarkable Gastrointestinal: Abdominal Pain, As per HPI Genitourinary: Unremarkable Musculoskeletal: Unremarkable Integumentary: Unremarkable Neurological: Confusion (at baseline) Physical Examination - Vital Signs reviewed - Physical Exam General: Alert, Oriented x1, Disheveled, Demented, Obese HEENT: Atraumatic, Normocephalic Neck: Supple Respiratory: Crackles/rales, Other (pulls oxygen off, Spo2 80s) Cardiovascular: Regular rate/rhythm Capillary refill: <2 Seconds Gastrointestinal: Distended, BS+ x 4 quads Musculoskeletal: No clubbing Integumentary: Other (pallor) Neurological: Abnormal speech, Abnormal strength, Abnormal affect, Dementia Lymphatics: No axilla or inguinal lymphadenopathy External genitalia: Deferred Rectal: Deferred Assessment and Plan - Plan Respiratory failure secondary to pneumonia, history of COPD cxr in ED Nebs, steroids, and antibiotics O2 per protocol Repeat chest x-ray Pulse ox every 4h Abdominal pain CT abdomen pelvis in ED showed: "Moderate right and small left pleural effusions. Large 3.3 cm gallstone in gallbladder. Mild gallbladder wall thickening and cystic duct dilatation. Small 1.1 cm hypoechoic enhancing focus at the anterior hepatic lobe, likely a hemangioma. Subcentimeter pancreatic tail cyst. Additional chronic findings."" Gallbladder ultrasound showed: "The gallbladder is partially distended and contains a large shadowing intraluminal echo consistent with a gallstone. This is located in the gallbladder fundus. This corresponds to the abnormality noted on the prior CT scan. The gallbladder wall measures approximately 2.5 mm in diameter. There is no definite pericholecystic fluid. The common bile duct is mildly dilated and measures approximately 8 mm in diameter. The portal vein is patent.". LFTs negative Serial abdominal exams LFT reevaluate Lipase in a.m. Hypertension with CHF Given hydralazine and labetalol in ED Beta-jong gentle diuresis Strict Is & Os Daily weight Iron deficiency anemia Current H&H 9.2 and 29 Iron and ferritin levels Monitor H&H Status post CVA with dementia Bedside swallow screen prior to clear liquids, advance as needed Skin protection measures Fall precautions Frequent reorienting Daughter is chief historian 12/16/23 CT chest: Mild interstitial pulmonary edema is suspected bilateral pleural effusions, larger on the right. This may indicate CHF or volume overload. H/H 9. today 8.8 and 27.9 Creatinine mildly elevated 1.42 Lasix 20mg IV daily continue I&O 12/24/23 no weight change H/H 9.4, 29.8 Creatinine 1.23 Nebs in progress on assessment pt without complaint awaiting placement - [facility] 12/25/23 labs placed for later in the day Peer to peer for placement denied Pt will go home with plan for HH [facility] Will plan on dc in am VTE/GI prophylaxis Will need home med reconciliation - Advance Directives Does patient have a Living Will: No Does patient have a Durable POA for Healthcare: Yes
[2023-12-25 19:13] LABS: Absolute Basophils 0.1 K/uL (0-0.5); Absolute Eosinophils 0.6 K/uL (0-0.5); Absolute Lymphocytes (CBC) 1.9 K/uL (0.7-4.9); Absolute Monocytes 0.7 K/uL (0.1-1.3); Absolute Neutrophil 5.8 K/uL (1.8-8.0); Basophils % 0.6 % (0-1.3); Eosinophils % 6.7 % (0-4.4); Hematocrit 30.7 % (36.0-45.0); Hemoglobin 9.6 g/dL (12.0-15.0); Lymphocytes % 20.9 % (15.3-44.8); MCH 24.4 pg (27.0-35.0); MCHC 31.1 g/dL (32.0-36.0); MCV 78.5 fL (80-100); Monocytes % 7.7 % (3.3-12.3); Neutrophils % 64.1 % (41.7-73.7); Nucleated Red Blood Cells % 0.1 % (0-0); Platelets 317 thou/uL (152-406); RBC Red Blood Cell Count 3.92 M/uL (3.86-4.86); Red Cell Distribution Width 17.7 % (12.1-15.2)
[2023-12-26 07:06] LABS: Absolute Basophils 0.1 K/uL (0-0.5); Absolute Eosinophils 0.7 K/uL (0-0.5); Absolute Lymphocytes (CBC) 2.1 K/uL (0.7-4.9); Absolute Monocytes 0.6 K/uL (0.1-1.3); Absolute Neutrophil 5.1 K/uL (1.8-8.0); Basophils % 1.3 % (0-1.3); Eosinophils % 8.1 % (0-4.4); Hematocrit 28.4 % (36.0-45.0); Lymphocytes % 23.8 % (15.3-44.8); MCH 24.9 pg (27.0-35.0); MCHC 31.7 g/dL (32.0-36.0); MCV 78.6 fL (80-100); MPV 8.7 fL (7.6-11.3); Monocytes % 7.4 % (3.3-12.3); Neutrophils % 59.4 % (41.7-73.7); Nucleated Red Blood Cells % 0.1 % (0-0); Platelets 311 thou/uL (152-406); RBC Red Blood Cell Count 3.61 M/uL (3.86-4.86); Red Cell Distribution Width 18.1 % (12.1-15.2)
[2023-12-26 07:19] LABS: Anion Gap 8.3 mEq/L (5.0-15.0); Potassium 4.3 mEq/L (3.5-5.1)
--- NOTE | 2023-12-26 13:26 | P.PN ---
Date of Service: 12/26/23 Subjective better, less cough, sleeping well, easily arousable to voice Review of Systems 10-point ROS is otherwise unremarkable General: As per HPI Respiratory: Shortness of Breath, As per HPI Cardiovascular: Unremarkable Gastrointestinal: Abdominal Pain, As per HPI Genitourinary: Unremarkable Musculoskeletal: Unremarkable Integumentary: Unremarkable Neurological: Confusion (at baseline) Physical Examination - Vital Signs reviewed - Physical Exam General: Alert, Oriented x1, calm, Demented, Obese HEENT: Atraumatic, Normocephalic Neck: Supple Respiratory: respiratory rate even and unlabored Cardiovascular: Regular rate/rhythm Capillary refill: <2 Seconds Gastrointestinal: NT, ND, Bowel sounds + x 4 quads Musculoskeletal: No clubbing Integumentary: no rash Neurological: Abnormal speech, Abnormal strength, Normal affect, Dementia Lymphatics: No axilla or inguinal lymphadenopathy External genitalia: Deferred Rectal: Deferred Assessment and Plan - Plan Respiratory failure secondary to pneumonia, history of COPD cxr in ED Nebs, steroids, and antibiotics O2 per protocol Repeat chest x-ray Pulse ox every 4h Abdominal pain CT abdomen pelvis in ED showed: "Moderate right and small left pleural effusions. Large 3.3 cm gallstone in gallbladder. Mild gallbladder wall thickening and cystic duct dilatation. Small 1.1 cm hypoechoic enhancing focus at the anterior hepatic lobe, likely a hemangioma. Subcentimeter pancreatic tail cyst. Additional chronic findings."" Gallbladder ultrasound showed: "The gallbladder is partially distended and contains a large shadowing intraluminal echo consistent with a gallstone. This is located in the gallbladder fundus. This corresponds to the abnormality noted on the prior CT scan. The gallbladder wall measures approximately 2.5 mm in diameter. There is no definite pericholecystic fluid. The common bile duct is mildly dilated and measures approximately 8 mm in diameter. The portal vein is patent.". LFTs negative Serial abdominal exams LFT reevaluate Lipase in a.m. Hypertension with CHF Given hydralazine and labetalol in ED Beta-jong gentle diuresis Strict Is & Os Daily weight Iron deficiency anemia Current H&H 9.2 and 29 Iron and ferritin levels Monitor H&H Status post CVA with dementia Bedside swallow screen prior to clear liquids, advance as needed Skin protection measures Fall precautions Frequent reorienting Daughter is chief historian 12/16/23 CT chest: Mild interstitial pulmonary edema is suspected bilateral pleural effusions, larger on the right. This may indicate CHF or volume overload. H/H 9. today 8.8 and 27.9 Creatinine mildly elevated 1.42 Lasix 20mg IV daily continue I&O 12/24/23 no weight change H/H 9.4, 29.8 Creatinine 1.23 Nebs in progress on assessment pt without complaint awaiting placement - [facility] 12/25/23 labs placed for later in the day Peer to peer for placement denied Pt will go home with plan for HH [facility] Will plan on dc in am 12/26/23 Creatinine bumped a little to 1.71. Stop lasix Encourage po continues to work with PT unable to go to SNF as pt is high functioning per PT Awaiting hospice placement - human services professional working with family VTE/GI prophylaxis Will need home med reconciliation - Advance Directives Does patient have a Living Will: No Does patient have a Durable POA for Healthcare: Yes
[2023-12-27 04:46] LABS: Absolute Basophils 0.1 K/uL (0-0.5); Absolute Eosinophils 0.5 K/uL (0-0.5); Absolute Lymphocytes (CBC) 2.2 K/uL (0.7-4.9); Absolute Monocytes 0.7 K/uL (0.1-1.3); Absolute Neutrophil 5.7 K/uL (1.8-8.0); Basophils % 1.1 % (0-1.3); Eosinophils % 5.3 % (0-4.4); Hematocrit 27.6 % (36.0-45.0); Hemoglobin 8.7 g/dL (12.0-15.0); Lymphocytes % 23.9 % (15.3-44.8); MCH 24.8 pg (27.0-35.0); MCHC 31.5 g/dL (32.0-36.0); MCV 78.6 fL (80-100); Monocytes % 7.9 % (3.3-12.3); Neutrophils % 61.8 % (41.7-73.7); Platelets 289 thou/uL (152-406); RBC Red Blood Cell Count 3.51 M/uL (3.86-4.86); Red Cell Distribution Width 17.6 % (12.1-15.2)
[2023-12-27 05:12] LABS: AST/SGOT 11 U/L (15-37); Albumin 2.8 g/dL (3.4-5.0); Albumin/Globulin Ratio 0.7 (1.1-1.8); Alkaline Phosphatase 105 U/L (45-117); BUN Blood Urea Nitrogen 42 mg/dL (7-18); Bicarbonate 31 mEq/L (21-32); Bilirubin Total 0.3 mg/dL (0.2-1.0); Globulin 3.9 g/dL (2.3-3.5); Glomerular Filtration Rate 30 ml/min (=/>90); Glucose Level 107 mg/dL (74-106); Protein, Total 6.7 g/dL (6.4-8.2); Sodium Level 138 mEq/L (136-145)
[2023-12-27 05:13] LABS: ALT/SGPT < 14 U/L (13-56)
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
[2023-12-27 14:47] VITALS: O2SAT 98
[2023-12-27 16:14] VITALS: TEMP 98.5
[2023-12-27 18:06] VITALS: BP 104/80
== END 2023-12-27 07:00 | DRG 193 ==
LOC: ER 01:10 → ERHOLD 07:53 → 2ND 08:54
PROVIDERS: ADMIT Hospitalist; ATTEND Internal Medicine
PROC: 0T9B70Z Drainage of Bladder with Drainage Device, Via Natural or Artificial Opening (ICD-10-PCS; principal; 2023-12-15)
DX: J18.9 Pneumonia, unspecified organism (principal); J96.01 Acute respiratory failure with hypoxia; J44.0 Chronic obstructive pulmonary disease with (acute) lower respiratory infection; J44.1 Chronic obstructive pulmonary disease with (acute) exacerbation; K86.2 Cyst of pancreas; I11.0 Hypertensive heart disease with heart failure; I50.9 Heart failure, unspecified; I48.91 Unspecified atrial fibrillation; E87.6 Hypokalemia; E66.9 Obesity, unspecified; D50.9 Iron deficiency anemia, unspecified; K80.20 Calculus of gallbladder without cholecystitis without obstruction; F03.90 Unspecified dementia, unspecified severity, without behavioral disturbance, psychotic disturbance, mood disturbance, and anxiety; Z86.73 Personal history of transient ischemic attack (TIA), and cerebral infarction without residual deficits; Z79.01 Long term (current) use of anticoagulants; Z79.82 Long term (current) use of aspirin; Z68.20 Body mass index [BMI] 20.0-20.9, adult; Z79.899 Other long term (current) drug therapy
CPT/HCPCS: 36415; 71045; 71046; 71250; 74177; 76705; 80048; 80053; 80061; 80076; 81001; 82306; 82728; 82947; 83540; 83605; 83690; 83735; 83880; 84100; 84145; 84484; 85025; 85610; 85730; 87040; 92610; 93005; 94760; 96365; 96366; 96368; 96375; 97116; 97161; 97530; 99284; J1940; J2405; J2543; J7613; J7644; Q9967